=== PATIENT | female | born 1955 | race Caucasian/White ===

== ENCOUNTER 2017-01-30 23:47 | Inpatient (IN) | payer MEDICARE, OTHER ==
[~2017-01-30] VITALS: Ht 167.6 cm; Wt 114.0 kg
[2017-01-30 23:55] VITALS: BP 80/32
[2017-01-31] VITALS (9 sets, daily range): BP systolic 87–130; BP diastolic 26–77
[2017-01-31] MEDS ORDERED: NS 250 ML IV ONE (00:05)
--- NOTE | 2017-01-31 01:30 | Emergency Room Report ---
History of Present Illness General Chief Complaint: Altered Level of Consciousness Source: Family Member, EMS Present Illness HPI This is a 61-year-old female who is more bleeding obese. She has a history of renal failure on hemodialysis 4 days a week. She present with an altered mental status. Per her onset today. Progressively worse the last few hours. No nausea no vomiting. More sleepy. Per EMS she was very sedated and not answering questions appropriately. Oxygen was low they put her on a mask brought her here. Allergies: Coded Allergies: AZITHROMYCIN (Verified Allergy, Unknown, 01/30/17) POVIDONE-IODINE (Verified Allergy, Unknown, 01/30/17) SOAP (Verified Allergy, Unknown, 01/30/17) Patient History Past Medical History: see triage record, old chart reviewed, HTN, renal disease , dialysis Past Surgical History: other Pertinent Family History: none Social History: Denies: smoking Now: No Immunizations: other Reviewed Nursing Documentation: PMH: Agreed, PSxH: Agreed Nursing Documentation-PMH Past Medical History: No History, Except For Hx Hypertension: Yes Hx Diabetes: Yes Hx Dialysis: Yes - M-W-T-F Review of Systems Constitutional: Reports: malaise, weakness Eye: Denies: eye pain, blurred vision ENT: Denies: ear pain, nose congestion, throat swelling Respiratory: Denies: cough, shortness of breath Cardiovascular: Denies: chest pain, palpitations Gastrointestinal: Denies: abdominal pain, diarrhea, nausea, vomiting Musculoskeletal: Denies: back pain, joint pain Skin: Denies: rash Neurological: Denies: headache, numbness Endocrine: Denies: increased thirst, increased urine Hematologic/Lymphatic: Denies: easy bruising All Other Systems: negative except mentioned in HPI Physical Exam Vital Signs Date Time Temp Pulse Resp B/P (MAP) Pulse Ox O2 Delivery O2 Flow Rate FiO2 01/30/17 23:49 98.4 76 17 80/32 93 Room Air vitals with hypoxia and hypotension Sp02 EP Interpretation: abnormal General Appearance: moderate distress, lethargic, obese Head: normocephalic, atraumatic Eyes: bilateral eye PERRL, bilateral eye EOMI ENT: hearing grossly normal, normal pharynx Neck: full range of motion, supple, no meningismus Respiratory: chest non-tender, decreased breath sounds, rales Cardiovascular #1: regular rate, rhythm, no murmur Gastrointestinal: normal bowel sounds, non tender, no mass, no organomegaly, no bruit, non-distended Musculoskeletal: back normal, normal range of motion Neurologic: grossly normal Skin: warm/dry Procedures Critical Care Time Critical Care Time Critical care is mandated in this patient who presented with respiratory distress and altered mental status.. Patient require my urgent intervention to attenuate the risks of metabolic collapse which may lead to cardiovascular collapse and . Critical care time is 35 minutes excluding any reportable procedure. Critical care time included evaluation, multiple reevaluation, looking at old charts, interpreting laboratory and diagnostic data, discussing case with patient and family and consultants, and charting. Medical Decision Making Diagnostic Impression: Primary Impression: Acute exacerbation of CHF (congestive heart failure) Qualified Codes: I50.9 - Heart failure, unspecified Additional Impressions: Encephalopathy acute Morbid obesity with BMI of 40.0-44.9, adult ER Course She presents with altered mental status. No evidence of TIA or CVA. No evidence of infection. Chest x-ray showed CHF, mostly right sided. Patient is feeling better now. Mental status back to baseline. Patient was admitted for a week at [place]. She required daily dialysis. Since discharge she has been fluid restricted and not eating much. She has lost about 11 kg of her dry weight. She still take the same amount of insulin and glipizide. Also same amount of blood pressure medication. I suspect that her blood sugar being low throughout the day and blood pressure being low because she's on too much medication now. Her troponin is in the intermediate range. This may be secondary to her renal failure. She has no chest pain. Family does not want to be transferred to [place] at this moment in time. They prefer that she stays here. Because of that, will admit to the on-call physician. Lab Results Impression labs with abnormal renal function. EKG Diagnostic Results Rate: normal Rhythm: NSR ST Segments: no acute changes Rhythm Strip Diag. Results Rhythm Strip Time: 01:30 EP Interpretation: yes Rate: 80 Rhythm: NSR, no PVC's, no ectopy Chest X-Ray Diagnostic Results Chest X-Ray Diagnostic Results : Chest X-Ray Ordered: Yes # of Views/Limited/Complete: 1 View Indication: Shortness of Breath EP Interpretation: Yes Interpretation: no consolidation, no pneumothorax, other - Cardiomegaly, with right-sided vascular congesti Impression: Other - CHF Electronically Signed by: Electronically signed by Jarrod Mercado MD Last Vital Signs Date Time Temp Pulse Resp B/P (MAP) Pulse Ox O2 Delivery O2 Flow Rate FiO2 01/30/17 23:49 98.4 76 17 80/32 93 Room Air Status: improved Disposition: ADMITTED INPATIENT Condition: Serious JARROD MERCADO M.D. Jan 31, 2017 01:30
[2017-01-31 01:32] LABS: ABG PCO2 43.1 mmHg (35.0-45.0)
[2017-01-31 01:33] LABS: ABG ALLEN TEST POSITIVE; ABG BASE EXCESS -2.7
[2017-01-31 01:41] LABS: BASOPHILS % (AUTO) 0.6 % (0.0-2.0); EOSINOPHILS % (AUTO) 0.6 % (0.0-3.0); LYMPHOCYTES % (AUTO) 13.4 % (20.0-45.0); MEAN CORPUSCULAR HEMOGLOBIN 30.6 PG (27.0-31.0); MEAN CORPUSCULAR HGB CONC 32.2 G/DL (32.0-36.0); MEAN CORPUSCULAR VOLUME 95 FL (80-99); MEAN PLATELET VOLUME 9.2 FL (6.5-10.1); MONOCYTES % (AUTO) 9.9 % (1.0-10.0); NEUTROPHILS % (AUTO) 75.6 % (45.0-75.0); PLATELET COUNT 185 K/UL (150-450); RED BLOOD COUNT 3.25 M/UL (4.20-5.40); RED CELL DISTRIBUTION WIDTH 13.6 % (11.6-14.8); WHITE BLOOD COUNT 9.6 K/UL (4.8-10.8)
[2017-01-31 01:52] LABS: INR 1.1 (0.9-1.1); PROTHROMBIN TIME 11.4 SEC (9.30-11.50)
[2017-01-31 02:05] LABS: ALANINE AMINOTRANSFERASE 11 U/L (12-78); ANION GAP 16 (5-15); ASPARTATE AMINO TRANSFERASE 13 U/L (15-37); CALCIUM 10.1 MG/DL (8.5-10.1); CARBON DIOXIDE 24 MMOL/L (21-32); CHLORIDE 94 MMOL/L (98-107); CKMB 2.9 NG/ML (0.0-3.6); CREATININE 8.3 MG/DL (0.55-1.30); GLOMERULAR FILTRATION RATE 4.9 mL/min (>60); POTASSIUM 3.3 MMOL/L (3.5-5.1); SODIUM 134 MMOL/L (136-145); TOTAL PROTEIN 6.3 G/DL (6.4-8.2)
[2017-01-31] MEDS ORDERED: RENVELA0.8 GM ORAL (02:35)
[2017-01-31] MEDS ORDERED: FUROSEMIDE40 MG ORAL (02:35)
[2017-01-31] MEDS ORDERED: CLONIDINE HCL0.2 MG PO (02:35)
[2017-01-31] MEDS ORDERED: LORATADINE10 M1 PO (02:35)
[2017-01-31] MEDS ORDERED: ASPIRIN81 MG ORAL (02:35)
[2017-01-31] MEDS ORDERED: JANUVIA25 MG ORAL (02:35)
[2017-01-31] MEDS ORDERED: HYDRALAZINE HCL50 MG ORAL (02:35)
[2017-01-31] MEDS ORDERED: SIMVASTATIN80 MG ORAL (02:35)
[2017-01-31] MEDS ORDERED: MINOXIDIL2.5 MG PO (02:35)
[2017-01-31] MEDS ORDERED: GLIPIZIDE5 MG ORAL (02:35)
[2017-01-31] MEDS ORDERED: DIOVAN320 MG ORAL (02:35)
[2017-01-31] MEDS ORDERED: RENA-VITE TABL0.8 M1 PO (02:35)
[2017-01-31] MEDS ORDERED: PROCARDIA XL30 MG ORAL (02:35)
[2017-01-31] MEDS ORDERED: CARVEDILOL12.5 MG ORAL (02:35)
[2017-01-31] MEDS ORDERED: Miralax 17gm pkt ORAL PRN (07:15)
[2017-01-31] MEDS ORDERED: Mylanta II UD 30ml ORAL PRN (07:15)
[2017-01-31] MEDS ORDERED: Zolpidem 5mg tab ORAL PRN (07:15)
[2017-01-31] MEDS ORDERED: Albuterol/Ipratropium 3ml neb HHN PRN (07:15)
--- NOTE | 2017-01-31 08:35 | General Progress Note ---
Progress Note Progress Note patient seen and examined full note will be dictated dialysis was ordered IKER GARCIA Jan 31, 2017 08:34
[2017-01-31] MEDS ORDERED: sitaGLIPtin 25mg tab ORAL SCH (09:00)
--- NOTE | 2017-01-31 09:27 | Diagnostic Imaging Report ---
Indication: AMS Technique: Continuous helical CT scanning of the head was performed without intravenous contrast material. Axial and coronal 5 mm sections were generated. Radiation dose was minimized using automated exposure control Dose: Total Dose Length Product - DLP 1004 and [address] Dose Index - CTDIvol(s) 70.38 mGy. Comparison: Findings: The ventricular system is normal in size and configuration. There is no shift of midline structures. No abnormal extra-axial fluid collections are noted. There is no evidence of intracerebral bleeding. No other abnormal high or low density areas are noted within the brain. There is opacification of multiple left mastoid air cells. The sinuses are clear. The orbits are unremarkable. The calvarium is intact. Incidental finding of incomplete fusion of the posterior C1 arch-normal anatomic variant Impression: Normal CT scan of the head without contrast material. Incidental finding of left mastoid disease This agrees with the preliminary interpretation provided overnight by [facility]erad[facility] service. The CT scanner at [facility] is accredited by the [employer] and the scans are performed using protocols designed to limit radiation exposure to as low as reasonably achievable to attain images of sufficient resolution adequate for diagnostic evaluation.
[2017-01-31] MEDS: NovoLOG Insulin Flexpen SUBQ SCH ×4 (10:15→21:00)
--- NOTE | 2017-01-31 10:22 | Diagnostic Imaging Report ---
Indication: shortness of breath Technique: One view of the chest Comparison: none Findings: Body habitus limits evaluation. The heart is enlarged. There is mild interstitial congestion. The pleural spaces are probably clear Impression: Cardiomegaly. Mild pulmonary interstitial congestion
[2017-01-31] MEDS: Aspirin Baby 81mg ORAL SCH (16:43)
[2017-01-31] MEDS: sitaGLIPtin 25mg tab ORAL SCH (16:43)
--- NOTE | 2017-01-31 18:15 | History and Physical Report ---
DATE OF ADMISSION: 01/31/2017 TIME: 12 noon. ATTENDING PHYSICIAN: Woodrow Lord D.O. CONSULTANTS: 1. Mliy Muñoz M.D. 2. Guevara Gates M.D. 3. Kathi Resendiz M.D. CHIEF COMPLAINT: Shortness of breath, weakness, and lethargy. BRIEF HISTORY: The patient is a 61-year-old female who lives at home presents to [facility] with history of increased shortness of breath, lethargy, diagnosed with CHF exacerbation, altered mental status, ESRD, hypertension, and being admitted to telemetry for further care. Currently calm, O2 NC, slight shortness of breath in bed in the ER. No complaints. PAST MEDICAL HISTORY: CHF, ESRD, hypertension, diabetes, and asthma. PAST SURGICAL HISTORY: Tonsil, appendectomy, and shunt placement. MEDICATIONS: NovoLog, aspirin, Renvela, heparin, Januvia, morphine, MiraLAX, Zofran, zolpidem, Catapres, Lasix, and Duo-Neb. ALLERGIES: Erythromycin, povidone, azithromycin, and penicillin. SOCIAL HISTORY: No smoking. No alcohol. No intravenous drug abuse. FAMILY HISTORY: Noncontributory. REVIEW OF SYSTEMS: No chest pain. Slight shortness of breath. No nausea, vomiting, or diarrhea. PHYSICAL EXAMINATION: GENERAL: Calm in bed, slightly short of breath, oriented x3, in no acute distress. VITAL SIGNS: Temperature is 98 degrees, pulse 78, respirations 15, and blood pressure 103/39. CARDIOVASCULAR: No murmur. LUNGS: Poor air exchange. ABDOMEN: Bowel sounds are positive. Nontender and nondistended. EXTREMITIES: No cyanosis, clubbing, or edema. NEUROLOGIC: The patient moves all extremities, but slightly weak. LABORATORY AND DIAGNOSTIC DATA: Hemoglobin 9.9, otherwise CBC is normal. BMP shows sodium 134, potassium 3.3, chloride 94, BUN and creatinine 42/8.3, and glucose 173. INR is 1.1 and PTT is 32. ASSESSMENT: 1. Congestive heart failure exacerbation. 2. Altered mental status. 3. End-stage renal disease. 4. Hypertension. 5. Anemia. 6. Diabetes. 7. Asthma. PLAN: 1. Continue pre-medications. 2. O2 and pulmonary treatment. 3. OT/PT. 4. Dietary evaluation. 5. CBC and BMP in the morning. 6. Dialysis. 7. Blood pressure and blood sugar control. 8. Dr. Muñoz, Dr. Gates, and Dr. Resendiz to consult. Woodrow Lord D.O. DR: KULWANT JOB#: [id number] CC:
--- NOTE | 2017-01-31 21:15 | Consultation ---
History of Present Illness General Date patient seen: Jan 31, 2017 Chief Complaint: Altered Level of Consciousness Referring physician: Dr. Lord Reason for Consultation: inpatient management Present Illness HPI 61 year old female with hx of ESRF, DM, HTN, on HD, on multiple anti BP meds was taken by paramedics to [facility] for acute encephalopathy and low BP. Pt was found to have pulmonary edema and being admitted to teli/reggie for further evaluation. Allergies: Coded Allergies: AZITHROMYCIN (Verified Allergy, Unknown, 01/30/17) POVIDONE-IODINE (Verified Allergy, Unknown, 01/30/17) SOAP (Verified Allergy, Unknown, 01/30/17) Medication History Scheduled Aspirin* (Aspirin*), 81 MG ORAL DAILY, (Reported) Carvedilol* (Carvedilol*), 12.5 MG ORAL EVERY 12 HOURS, (Reported) Furosemide* (Lasix*), 40 MG ORAL TWICE A DAY, (Reported) Glipizide* (Glipizide*), 10 MG ORAL BIDAC, (Reported) Hydralazine Hcl* (Hydralazine Hcl*), 50 MG ORAL EVERY 8 HOURS, (Reported) Minoxidil* (Loniten*), 2.5 MG PO DAILY, (Reported) Nifedipine Xl* (Procardia Xl*), 60 MG ORAL BID, (Reported) Sevelamer Carbonate* (Renvela*), 800 MG ORAL THREE TIMES A DAY, (Reported) Simvastatin (Zocor), 80 MG ORAL BEDTIME, (Reported) Sitagliptin* (Januvia*), 100 MG ORAL DAILY, (Reported) Valsartan (Diovan), 320 MG ORAL DAILY, (Reported) Miscellaneous Medications Clonidine Hcl (Clonidine Hcl), 0.2 MG PO, (Reported) Folic Acid/Vitamin B Comp W-C (Jonelle-Stefanie Tablet), 0.8 MG PO, (Reported) Loratadine (Loratadine), 10 MG PO, (Reported) Patient History Healthcare decision maker Resuscitation status Full Code Advanced Directive on File No Past Medical/Surgical History Past Medical/Surgical History: (1) ESRD (end stage renal disease) (2) HTN (hypertension) (3) Diabetes mellitus Review of Systems All Other Systems: negative except mentioned in HPI Physical Exam General Appearance: WD/WN Lines, tubes and drains: peripheral, central line HEENT: normocephalic Neck: non-tender, normal alignment, limited range of motion Respiratory/Chest: chest wall non-tender, lungs clear, normal breath sounds Cardiovascular/Chest: normal peripheral pulses, normal rate Abdomen: normal bowel sounds Genitourinary/Rectal: normal genital exam Last 24 Hour Vital Signs Date Time Temp Pulse Resp B/P (MAP) Pulse Ox O2 Delivery O2 Flow Rate FiO2 01/31/17 19:37 98.4 86 18 116/43 93 Room Air 2.0 01/31/17 14:30 86 18 116/43 93 Room Air 01/31/17 12:30 87 15 107/43 97 Room Air 01/31/17 10:30 86 17 111/41 94 Room Air 01/31/17 07:30 78 15 103/39 96 Room Air 01/31/17 06:30 74 12 99/30 100 Nasal Cannula 2.0 01/31/17 05:00 82 16 96/77 96 Nasal Cannula 2.0 01/31/17 03:00 81 15 87/39 98 Room Air 01/31/17 01:30 84 16 90/26 96 Room Air 01/30/17 23:55 98.4 82 17 80/32 93 Room Air 01/30/17 23:49 98.4 76 17 80/32 93 Room Air Intake and Output 01/31/17 02/01/17 19:00 07:00 Intake Total 120 ml Balance 120 ml Intake Oral 120 ml Laboratory Tests Test 01/31/17 01:20 01/31/17 01:30 White Blood Count 9.6 K/UL (4.8-10.8) Red Blood Count 3.25 M/UL (4.20-5.40) L Hemoglobin 9.9 G/DL (12.0-16.0) L Hematocrit 30.8 % (37.0-47.0) L Mean Corpuscular Volume 95 FL (80-99) Mean Corpuscular Hemoglobin 30.6 PG (27.0-31.0) Mean Corpuscular Hemoglobin Concent 32.2 G/DL (32.0-36.0) Red Cell Distribution Width 13.6 % (11.6-14.8) Platelet Count 185 K/UL (150-450) Mean Platelet Volume 9.2 FL (6.5-10.1) Neutrophils (%) (Auto) 75.6 % (45.0-75.0) H Lymphocytes (%) (Auto) 13.4 % (20.0-45.0) L Monocytes (%) (Auto) 9.9 % (1.0-10.0) Eosinophils (%) (Auto) 0.6 % (0.0-3.0) Basophils (%) (Auto) 0.6 % (0.0-2.0) Prothrombin Time 11.4 SEC (9.30-11.50) Prothromb Time International Ratio 1.1 (0.9-1.1) Activated Partial Thromboplast Time 32 SEC (23-33) Sodium Level 134 MMOL/L (136-145) L Potassium Level 3.3 MMOL/L (3.5-5.1) L Chloride Level 94 MMOL/L (98-107) L Carbon Dioxide Level 24 MMOL/L (21-32) Anion Gap 16 (5-15) H Blood Urea Nitrogen 42 mg/dL (7-18) H Creatinine 8.3 MG/DL (0.55-1.30) H Estimat Glomerular Filtration Rate 4.9 mL/min (>60) Glucose Level 173 MG/DL (74-106) H Calcium Level 10.1 MG/DL (8.5-10.1) Total Bilirubin 0.3 MG/DL (0.2-1.0) Aspartate Amino Transf (AST/SGOT) 13 U/L (15-37) L Alanine Aminotransferase (ALT/SGPT) 11 U/L (12-78) L Alkaline Phosphatase 204 U/L (46-116) H Total Creatine Kinase 111 U/L (26-308) Creatine Kinase MB 2.9 NG/ML (0.0-3.6) Creatine Kinase MB Relative Index 2.6 Troponin I 0.070 ng/mL (0.000-0.056) Total Protein 6.3 G/DL (6.4-8.2) L Albumin 3.2 G/DL (3.4-5.0) L Globulin 3.1 g/dL Albumin/Globulin Ratio 1.0 (1.0-2.7) Arterial Blood pH 7.343 (7.350-7.450) Arterial Blood Partial Pressure CO2 43.1 mmHg (35.0-45.0) Arterial Blood Partial Pressure O2 70.8 mmHg (75.0-100.0) L Arterial Blood HCO3 22.9 mmol/L (22.0-26.0) Arterial Blood Oxygen Saturation 92.5 % (92.0-98.0) Arterial Blood Base Excess -2.7 Jey Test Positive Height (Feet): 5 Height (Inches): 6.00 Weight (Pounds): 260 Medications Current Medications Medications (Trade) Dose Ordered Sig/Renée Route PRN Reason Start Time Stop Time Status Last Admin Dose Admin Acetaminophen (Tylenol) 650 mg Q4H PRN ORAL fever 01/31/17 07:15 03/02/17 07:14 Al Hydroxide/Mg Hydroxide (Mylanta II) 30 ml Q6H PRN ORAL dyspepsia 01/31/17 07:15 03/02/17 07:14 Albuterol/ Ipratropium (DuoNeb 0.5-3(2.5)mg/3ml) 3 ml Q6H PRN HHN dyspnea 01/31/17 07:15 02/05/17 07:14 Aspirin (ASA) 81 mg DAILY ORAL 01/31/17 15:00 03/02/17 14:59 01/31/17 16:43 Clonidine HCl (Catapres) 0.1 mg Q4H PRN ORAL For High Blood Pressure 01/31/17 07:15 03/02/17 07:14 Dextrose (Dextrose 50%) STAT PRN IV Hypoglycemia 01/31/17 07:15 03/02/17 07:14 Furosemide (Lasix) 100 mg Q8H PRN IV dyspnea 01/31/17 07:15 03/02/17 07:14 Heparin Sodium (Porcine) (Heparin 5000 units/ml) 5,000 units EVERY 12 HOURS SUBQ 01/31/17 21:00 03/02/17 20:59 Insulin Aspart (NovoLOG) BEFORE MEALS AND HS SUBQ 01/31/17 09:40 03/02/17 09:39 01/31/17 10:15 Morphine Sulfate (Morphine Sulfate) 1 mg Q4H PRN IVP For Pain 01/31/17 07:15 02/07/17 07:14 Ondansetron HCl (Zofran) 4 mg Q6H PRN IVP Nausea & Vomiting 01/31/17 07:15 03/02/17 07:14 Polyethylene Glycol (Miralax) 17 gm HSPRN PRN ORAL Constipation 01/31/17 07:15 03/02/17 07:14 Sevelamer Carbonate (Renvela) 800 mg THREE TIMES A DAY ORAL 01/31/17 15:00 03/02/17 14:59 01/31/17 16:43 Sitagliptin Phosphate (Januvia) 25 mg DAILY ORAL 01/31/17 15:00 03/02/17 14:59 01/31/17 16:43 Zolpidem Tartrate (Ambien) 5 mg HSPRN PRN ORAL Insomnia 01/31/17 07:15 02/07/17 07:14 Assessment/Plan Problem List: (1) Acute exacerbation of CHF (congestive heart failure) ICD Codes: I50.9 - Heart failure, unspecified SNOMED: 82450945, 456939822 Qualifiers: Qualified Codes: I50.9 - Heart failure, unspecified (2) Encephalopathy acute ICD Codes: G93.40 - Encephalopathy, unspecified; Z68.41 - Body mass index (BMI ) 40.0-44.9, adult SNOMED: 5371883, 454889911 (3) Diabetes mellitus ICD Codes: E11.9 - Type 2 diabetes mellitus without complications SNOMED: 60823136 (4) ESRD (end stage renal disease) ICD Codes: N18.6 - End stage renal disease SNOMED: 54379886 (5) Overuse of medication ICD Codes: Z91.14 - Patient's other noncompliance with medication regimen SNOMED: 890906146 (6) Morbid obesity with BMI of 40.0-44.9, adult ICD Codes: E66.01 - Morbid (severe) obesity due to excess calories; Z68.41 - Body mass index (BMI) 40.0-44.9, adult SNOMED: 126756826, 033109733 (7) HTN (hypertension) ICD Codes: I10 - Essential (primary) hypertension SNOMED: 66867833 Assessment/Plan HD repeat cxr monitor bp adjust bp meds sliding scale MARINA PARRISH Jan 31, 2017 21:15
--- NOTE | 2017-01-31 22:15 | Consultation ---
DATE OF CONSULTATION: 01/31/2017 NEPHROLOGY CONSULTATION CONSULTING PHYSICIAN: Kathi Resendiz M.D. ATTENDING PHYSICIAN: Woodrow Lord D.O. REFERRING PHYSICIAN: Woodrow Lord D.O. REASON FOR CONSULTATION: End-stage renal disease, need for hemodialysis. HISTORY OF PRESENT ILLNESS: The patient is an unfortunate 61-year-old female with past medical history significant for history of morbid obesity, hypertension, diabetes, end-stage renal disease, on dialysis Tuesday, Tuesday, Tuesday. Last dialysis was on Tuesday. She was brought into emergency room by her for evaluation of altered mental status. Upon arrival, the patient was found to be altered, but this morning when I spoke to her in the ER, the patient was alert and oriented x4. She complained of mild shortness of breath. Denies fever, chills, night sweats. The patient denies having any current chest pain and waiting for ER to be getting admitted. ALLERGIES: She is allergic to azithromycin. She is also allergic to iodine and soap. PAST MEDICAL HISTORY: Includin. End-stage renal disease. 2. Anemia of chronic kidney disease. 3. Renal osteodystrophy. 4. Hypertension. 5. Diabetes. 6. Morbid obesity. 7. History of AV fistula placement on the left upper extremity. 8. History of AV fistula placement on the right upper extremity. SOCIAL HISTORY: Lives at home with her . There is no history of current tobacco, alcohol, or drug use. REVIEW OF SYSTEMS: GENERAL: She complained of generalized weakness. Denied any fever, chills, or night sweats. HEAD AND NECK: Denies any dysphagia, odynophagia, blurry vision, headache, or neck stiffness. PULMONARY: Mild shortness of breath. No cough or sputum. CARDIOVASCULAR: Denies any chest pain or palpitation. GASTROINTESTINAL: Denied any nausea, vomiting, diarrhea, hematemesis, or hematochezia. GENITOURINARY: Denied any dysuria, frequency, or hematuria. PHYSICAL EXAMINATION: VITAL SIGNS: The patient has temperature of 98, pulse of 76, respiratory rate of 18, and blood pressure of 80/32. HEAD AND NECK: No JVP. No LAD. Extraocular movements intact. Pupils are reactive to light and accommodation. LUNGS: Decreased breathing sounds. CARDIAC: Regular rate and rhythm. S1, S2. No murmur. No rub. ABDOMEN: Obese, nontender, and nondistended. EXTREMITIES: She has 1+ edema. No clubbing. No cyanosis. NEUROLOGIC: Cranial nerves II though XII within normal limits. Upper and lower extremities are grossly intact. LABORATORY AND DIAGNOSTIC DATA: The patient has WBC count of 9.6, hemoglobin of 9.1, hematocrit 30.8, and platelet count of 185,000. Chemistry reveals sodium 134, potassium 3.3, chloride 94, BUN of 42, creatinine of 8.3, glucose of 173, and calcium of 10.1. AST of 13, ALT of 11, and alkaline phosphatase of 204. Troponin 0.07. Total protein 6.3, albumin 3.2. ASSESSMENT: 1. End-stage coronary disease. 2. Anemia of chronic kidney disease. 3. Hypokalemia. 4. Hypotension. 5. Altered mental status. PLAN: Plan is for the patient to receive dialysis today. The patient needs to be pancultured being with low blood pressure. This lower blood pressure for the patient is unusual. Check the iron panel for anemia of chronic disease. Check calcium, phosphorus, PTH for evaluation of renal osteodystrophy. Monitoring electrolytes closely. At the end, I would like to thank Dr. Woodrow Lord for allowing me to participate in the care of this patient. Kathi Resendiz M.D. DR: Melanie JOB#: [id number] CC:
[2017-01-31] MEDS: Heparin 5000 units/ml inj SUBQ SCH (22:31)
[2017-01-31] MEDS: Morphine Sulfate 2mg/ml Inj IVP PRN (23:21)
[2017-02-01] VITALS (7 sets, daily range): BP systolic 89–146; BP diastolic 34–73
[2017-02-01] MEDS: NovoLOG Insulin Flexpen SUBQ SCH ×4 (06:30→21:00)
[2017-02-01] MEDS: Morphine Sulfate 2mg/ml Inj IVP PRN (06:36)
[2017-02-01] MEDS ORDERED: Morphine Sulfate 4mg/ml Inj IVP PRN (08:00)
--- NOTE | 2017-02-01 08:14 | Cardiology Progress Note ---
Assessment/Plan Assessment/Plan The patient is seen and examined, full consult note will be dictated. Objective Last 24 Hour Vital Signs Date Time Temp Pulse Resp B/P (MAP) Pulse Ox O2 Delivery O2 Flow Rate FiO2 02/01/17 04:00 87 02/01/17 04:00 97.5 96 20 116/51 99 Nasal Cannula 3.0 96 02/01/17 00:05 95/34 02/01/17 00:00 97.9 85 20 89/36 Nasal Cannula 3.0 02/01/17 00:00 86 01/31/17 20:54 88 01/31/17 20:00 97.9 89 20 130/50 97 Nasal Cannula 3.0 01/31/17 19:37 98.4 86 18 116/43 93 Room Air 2.0 01/31/17 14:30 86 18 116/43 93 Room Air 01/31/17 12:30 87 15 107/43 97 Room Air 01/31/17 10:30 86 17 111/41 94 Room Air Laboratory Tests Test 02/01/17 07:35 White Blood Count Pending Red Blood Count Pending Hemoglobin Pending Hematocrit Pending Mean Corpuscular Volume Pending Mean Corpuscular Hemoglobin Pending Mean Corpuscular Hemoglobin Concent Pending Red Cell Distribution Width Pending Platelet Count Pending Mean Platelet Volume Pending Neutrophils (%) (Auto) Pending Lymphocytes (%) (Auto) Pending Monocytes (%) (Auto) Pending Eosinophils (%) (Auto) Pending Basophils (%) (Auto) Pending Erythrocyte Sedimentation Rate Pending Reticulocyte Count Pending Sodium Level Pending Potassium Level Pending Chloride Level Pending Carbon Dioxide Level Pending Blood Urea Nitrogen Pending Creatinine Pending Estimat Glomerular Filtration Rate Pending Glucose Level Pending Hemoglobin A1c Pending Calcium Level Pending Iron Level Pending Unsaturated Iron Binding Pending Total Bilirubin Pending Aspartate Amino Transf (AST/SGOT) Pending Alanine Aminotransferase (ALT/SGPT) Pending Alkaline Phosphatase Pending Lactate Dehydrogenase Pending Pro-B-Type Natriuretic Peptide Pending Total Protein Pending Albumin Pending Globulin Pending Triglycerides Level Pending Cholesterol Level Pending LDL Cholesterol Pending HDL Cholesterol Pending Cholesterol/HDL Ratio Pending Vitamin B12 Level Pending Folate Pending Thyroid Stimulating Hormone (TSH) Pending JOSE ALBERTO WONG Feb 01, 2017 08:14
[2017-02-01 08:19] LABS: BASOPHILS % (AUTO) 0.6 % (0.0-2.0); EOSINOPHILS % (AUTO) 0.5 % (0.0-3.0); LYMPHOCYTES % (AUTO) 12.6 % (20.0-45.0); MEAN CORPUSCULAR HEMOGLOBIN 31.7 PG (27.0-31.0); MEAN CORPUSCULAR HGB CONC 32.4 G/DL (32.0-36.0); MEAN CORPUSCULAR VOLUME 98 FL (80-99); MEAN PLATELET VOLUME 9.1 FL (6.5-10.1); MONOCYTES % (AUTO) 8.4 % (1.0-10.0); NEUTROPHILS % (AUTO) 77.8 % (45.0-75.0); PLATELET COUNT 221 K/UL (150-450); RED BLOOD COUNT 3.41 M/UL (4.20-5.40); RED CELL DISTRIBUTION WIDTH 13.9 % (11.6-14.8); WHITE BLOOD COUNT 10.6 K/UL (4.8-10.8)
--- NOTE | 2017-02-01 08:41 | Nephrology Progress Note ---
Assessment/Plan Assessment 1. End-stage coronary disease. 2. Anemia of chronic kidney disease. 3. Hypokalemia. 4. Hypotension. 5. Altered mental status. Plan plan hold bp meds dialysis today check phos,pth continue epogen check iron panel Subjective Constitutional: Reports: no symptoms, weakness HEENT: Reports: no symptoms Genitourinary: Reports: no symptoms Neurologic/Psychiatric: Reports: no symptoms Subjective alert and awake denies any CP or SOB awaiting for hemodialysis Objective Objective Last 24 Hour Vital Signs Date Time Temp Pulse Resp B/P (MAP) Pulse Ox O2 Delivery O2 Flow Rate FiO2 02/01/17 08:14 96.8 95 18 125/52 100 Nasal Cannula 3.0 02/01/17 04:00 87 02/01/17 04:00 97.5 96 20 116/51 99 Nasal Cannula 3.0 96 02/01/17 00:05 95/34 02/01/17 00:00 97.9 85 20 89/36 Nasal Cannula 3.0 02/01/17 00:00 86 01/31/17 20:54 88 01/31/17 20:00 97.9 89 20 130/50 97 Nasal Cannula 3.0 01/31/17 19:37 98.4 86 18 116/43 93 Room Air 2.0 01/31/17 14:30 86 18 116/43 93 Room Air 01/31/17 12:30 87 15 107/43 97 Room Air 01/31/17 10:30 86 17 111/41 94 Room Air Laboratory Tests 02/01/17 07:35: White Blood Count 10.6, Red Blood Count 3.41L, Hemoglobin 10.8L, Hematocrit 33.3L, Mean Corpuscular Volume 98, Mean Corpuscular Hemoglobin 31.7H, Mean Corpuscular Hemoglobin Concent 32.4, Red Cell Distribution Width 13.9, Platelet Count 221, Mean Platelet Volume 9.1, Neutrophils (%) (Auto) 77.8H, Lymphocytes ( %) (Auto) 12.6L, Monocytes (%) (Auto) 8.4, Eosinophils (%) (Auto) 0.5, Basophils (%) (Auto) 0.6, Neutrophils % (Manual) [Pending], Lymphocytes % ( Manual) [Pending], Platelet Estimate [Pending], Platelet Morphology [Pending], Erythrocyte Sedimentation Rate [Pending], Reticulocyte Count [Pending], Sodium Level [Pending], Potassium Level [Pending], Chloride Level [Pending], Carbon Dioxide Level [Pending], Blood Urea Nitrogen [Pending], Creatinine [Pending], Estimat Glomerular Filtration Rate [Pending], Glucose Level [Pending], Hemoglobin A1c [Pending], Calcium Level [Pending], Iron Level [Pending], Unsaturated Iron Binding [Pending], Total Bilirubin [Pending], Aspartate Amino Transf (AST/SGOT) [Pending], Alanine Aminotransferase (ALT/SGPT) [Pending], Alkaline Phosphatase [Pending], Lactate Dehydrogenase [Pending], Pro-B-Type Natriuretic Peptide [Pending], Total Protein [Pending], Albumin [Pending], Globulin [Pending], Triglycerides Level [Pending], Cholesterol Level [Pending], LDL Cholesterol [Pending], HDL Cholesterol [Pending], Cholesterol/HDL Ratio [ Pending], Vitamin B12 Level [Pending], Folate [Pending], Thyroid Stimulating Hormone (TSH) [Pending] Height (Feet): 5 Height (Inches): 6.00 Weight (Pounds): 260 Objective HEAD AND NECK: No JVP. No LAD. Extraocular movements intact. Pupils are reactive to light and accommodation. LUNGS: Decreased breathing sounds. CARDIAC: Regular rate and rhythm. S1, S2. No murmur. No rub. ABDOMEN: Obese, nontender, and nondistended. EXTREMITIES: She has 1+ edema. No clubbing. No cyanosis. NEUROLOGIC: Cranial nerves II though XII within normal limits. Upper and lower extremities are grossly intact. IKER GARCIA Feb 01, 2017 08:41
[2017-02-01 09:03] LABS: ALANINE AMINOTRANSFERASE 14 U/L (12-78); ALBUMIN/GLOBULIN RATIO 1.1 (1.0-2.7); ANION GAP 23 mmol/L (5-15); ASPARTATE AMINO TRANSFERASE 13 U/L (15-37); CALCIUM 10.7 MG/DL (8.5-10.1); CARBON DIOXIDE 20 MMOL/L (21-32); CHLORIDE 93 MMOL/L (98-107); CHOLESTEROL 107 MG/DL (< 200); CHOLESTEROL/HDL RATIO 2.6 (3.3-4.4); CREATININE 10.7 MG/DL (0.55-1.30); GLOMERULAR FILTRATION RATE 3.6 mL/min (>60); POTASSIUM 4.5 MMOL/L (3.5-5.1); SODIUM 136 MMOL/L (136-145); THYROID STIMULATING HORMONE 1.253 uiU/mL (0.360-3.740)
[2017-02-01 09:17] LABS: INR 1.1 (0.9-1.1); PROTHROMBIN TIME 11.2 SEC (9.30-11.50)
[2017-02-01 09:38] LABS: ERYTHROCYTE SEDIMENTATION RATE 54 MM/HR (0-30)
[2017-02-01] MEDS: Aspirin Baby 81mg ORAL SCH (09:47)
[2017-02-01] MEDS: sitaGLIPtin 25mg tab ORAL SCH (09:47)
[2017-02-01 09:49] LABS: LACTATE DEHYDROGENASE 145 U/L (135-225)
[2017-02-01] MEDS: Heparin 5000 units/ml inj SUBQ SCH ×2 (09:52→20:28)
[2017-02-01 10:27] LABS: FOLIC ACID 19.9 NG/ML (3.1-17.5); IRON 43 ug/dL (50-175)
[2017-02-01 10:30] LABS: RETICULOCYTE COUNT 1.2 % (0.0-2.0)
[2017-02-01 11:17] LABS: TOTAL IRON BINDING CAPACITY 366 ug/dL (250-450)
[2017-02-01 11:22] LABS: BAND NEUTROPHILS % (MANUAL) 0 % (0-8); BASOPHILS % (MANUAL) 0 % (0-2); EOSINOPHILS % (MANUAL) 0 % (0-3); LYMPHOCYTES % (MANUAL) 11 % (20-45); NEUTROPHILS % (MANUAL) 80 % (45-75); PLATELET ESTIMATE ADEQUATE; PLATELET MORPHOLOGY NORMAL; TOTAL CELLS COUNTED 100
--- NOTE | 2017-02-01 12:00 | Pulmonology Progress Note ---
Assessment/Plan Problems: (1) Acute exacerbation of CHF (congestive heart failure) (2) Encephalopathy acute (3) Diabetes mellitus (4) ESRD (end stage renal disease) (5) Overuse of medication (6) Morbid obesity with BMI of 40.0-44.9, adult (7) HTN (hypertension) Assessment/Plan doing better repeat cxr check echo hold bp meds sliding scale Subjective ROS Limited/Unobtainable: No Interval Events: doing better, getting dialyzed Constitutional: Reports: no symptoms Allergies: Coded Allergies: AZITHROMYCIN (Verified Allergy, Unknown, 01/30/17) POVIDONE-IODINE (Verified Allergy, Unknown, 01/30/17) SOAP (Verified Allergy, Unknown, 01/30/17) Objective Last 24 Hour Vital Signs Date Time Temp Pulse Resp B/P (MAP) Pulse Ox O2 Delivery O2 Flow Rate FiO2 02/01/17 08:14 96.8 95 18 125/52 100 Nasal Cannula 3.0 02/01/17 04:00 87 02/01/17 04:00 97.5 96 20 116/51 99 Nasal Cannula 3.0 96 02/01/17 00:05 95/34 02/01/17 00:00 97.9 85 20 89/36 Nasal Cannula 3.0 02/01/17 00:00 86 01/31/17 20:54 88 01/31/17 20:00 97.9 89 20 130/50 97 Nasal Cannula 3.0 01/31/17 19:37 98.4 86 18 116/43 93 Room Air 2.0 01/31/17 14:30 86 18 116/43 93 Room Air 01/31/17 12:30 87 15 107/43 97 Room Air Intake and Output 02/01/17 02/02/17 19:00 07:00 Intake Total 120 ml Balance 120 ml Intake Oral 120 ml General Appearance: WD/WN HEENT: normocephalic, anicteric Respiratory/Chest: chest wall non-tender, lungs clear Cardiovascular: normal peripheral pulses, normal rate Abdomen: normal bowel sounds, soft, non tender Extremities: no cyanosis Skin: no rash Neurologic/Psychiatric: supervisor dials II-XII grossly normal Lymphatic: no neck adenopathy Laboratory Tests 02/01/17 07:23: Phosphorus Level 4.6 02/01/17 07:35: White Blood Count 10.6, Red Blood Count 3.41L, Hemoglobin 10.8L, Hematocrit 33.3L, Mean Corpuscular Volume 98, Mean Corpuscular Hemoglobin 31.7H, Mean Corpuscular Hemoglobin Concent 32.4, Red Cell Distribution Width 13.9, Platelet Count 221, Mean Platelet Volume 9.1, Neutrophils (%) (Auto) 77.8H, Lymphocytes ( %) (Auto) 12.6L, Monocytes (%) (Auto) 8.4, Eosinophils (%) (Auto) 0.5, Basophils (%) (Auto) 0.6, Differential Total Cells Counted 100, Neutrophils % ( Manual) 80H, Lymphocytes % (Manual) 11L, Monocytes % (Manual) 9, Eosinophils % ( Manual) 0, Basophils % (Manual) 0, Band Neutrophils 0, Platelet Estimate Adequate, Platelet Morphology Normal, Red Blood Cell Morphology Normal, Erythrocyte Sedimentation Rate 54H, Reticulocyte Count 1.2, Sodium Level 136, Potassium Level 4.5, Chloride Level 93L, Carbon Dioxide Level 20L, Anion Gap 23H , Blood Urea Nitrogen 59H, Creatinine 10.7H, Estimat Glomerular Filtration Rate 3.6, Glucose Level 167H, Hemoglobin A1c [Pending], Calcium Level 10.7H, Iron Level 43L, Total Iron Binding Capacity 366, Percent Iron Saturation 12L, Unsaturated Iron Binding 323, Total Bilirubin 0.4, Aspartate Amino Transf (AST/ SGOT) 13L, Alanine Aminotransferase (ALT/SGPT) 14, Alkaline Phosphatase 254H, Lactate Dehydrogenase 145, Pro-B-Type Natriuretic Peptide [Pending], Total Protein 7.0, Albumin 3.7, Globulin 3.3, Albumin/Globulin Ratio 1.1, Triglycerides Level 228H, Cholesterol Level 107, LDL Cholesterol 33, HDL Cholesterol 41, Cholesterol/HDL Ratio 2.6L, Vitamin B12 Level 473, Folate 19.9H , Thyroid Stimulating Hormone (TSH) 1.253 02/01/17 08:30: Prothrombin Time 11.2, Prothromb Time International Ratio 1.1, Activated Partial Thromboplast Time 36H Current Medications Medications (Trade) Dose Ordered Sig/Renée Route PRN Reason Start Time Stop Time Status Last Admin Dose Admin Acetaminophen (Tylenol) 650 mg Q4H PRN ORAL fever 01/31/17 07:15 03/02/17 07:14 Al Hydroxide/Mg Hydroxide (Mylanta II) 30 ml Q6H PRN ORAL dyspepsia 01/31/17 07:15 03/02/17 07:14 Albuterol/ Ipratropium (DuoNeb 0.5-3(2.5)mg/3ml) 3 ml Q6H PRN HHN dyspnea 01/31/17 07:15 02/05/17 07:14 Aspirin (ASA) 81 mg DAILY ORAL 01/31/17 15:00 03/02/17 14:59 02/01/17 09:47 Clonidine HCl (Catapres) 0.1 mg Q4H PRN ORAL For High Blood Pressure 01/31/17 07:15 03/02/17 07:14 Dextrose (Dextrose 50%) STAT PRN IV Hypoglycemia 01/31/17 07:15 03/02/17 07:14 Furosemide (Lasix) 100 mg Q8H PRN IV dyspnea 01/31/17 07:15 03/02/17 07:14 Heparin Sodium (Porcine) (Heparin 5000 units/ml) 5,000 units EVERY 12 HOURS SUBQ 01/31/17 21:00 03/02/17 20:59 02/01/17 09:52 Insulin Aspart (NovoLOG) BEFORE MEALS AND HS SUBQ 01/31/17 09:40 03/02/17 09:39 01/31/17 10:15 Morphine Sulfate (Morphine Sulfate) 4 mg Q4H PRN IVP PAIN 4-10 02/01/17 08:00 02/08/17 07:59 Ondansetron HCl (Zofran) 4 mg Q6H PRN IVP Nausea & Vomiting 01/31/17 07:15 03/02/17 07:14 01/31/17 23:21 Polyethylene Glycol (Miralax) 17 gm HSPRN PRN ORAL Constipation 01/31/17 07:15 03/02/17 07:14 Sevelamer Carbonate (Renvela) 800 mg THREE TIMES A DAY ORAL 01/31/17 15:00 03/02/17 14:59 02/01/17 09:47 Sitagliptin Phosphate (Januvia) 25 mg DAILY ORAL 01/31/17 15:00 03/02/17 14:59 02/01/17 09:47 Zolpidem Tartrate (Ambien) 5 mg HSPRN PRN ORAL Insomnia 01/31/17 07:15 02/07/17 07:14 MARINA PARRISH Feb 01, 2017 12:00
[2017-02-01 12:31] LABS: PATH BLOOD SMEAR/OMC SENT TO PATHOLOGIST
--- NOTE | 2017-02-01 13:10 | Diagnostic Imaging Report ---
Indication: Dyspnea Comparison: 01/31/17 A single view chest radiograph was obtained. Findings: A study prominent pulmonary vascularity noted with cardiac enlargement. Interstitial edema seen yesterday has improved. Impression: No overt CHF at this time. Improvement since yesterday.
--- NOTE | 2017-02-01 13:23 | General Progress Note ---
Assessment/Plan Problem List: (1) Acute exacerbation of CHF (congestive heart failure) ICD Codes: I50.9 - Heart failure, unspecified SNOMED: 14118919, 838328441 Qualifiers: Qualified Codes: I50.9 - Heart failure, unspecified (2) Morbid obesity with BMI of 40.0-44.9, adult ICD Codes: E66.01 - Morbid (severe) obesity due to excess calories; Z68.41 - Body mass index (BMI) 40.0-44.9, adult SNOMED: 457378940, 004681961 (3) Diabetes mellitus ICD Codes: E11.9 - Type 2 diabetes mellitus without complications SNOMED: 15514346 (4) ESRD (end stage renal disease) ICD Codes: N18.6 - End stage renal disease SNOMED: 78804779 (5) HTN (hypertension) ICD Codes: I10 - Essential (primary) hypertension SNOMED: 85036927 (6) Encephalopathy acute ICD Codes: G93.40 - Encephalopathy, unspecified; Z68.41 - Body mass index (BMI ) 40.0-44.9, adult SNOMED: 1660433, 469507975 Status: stable, progressing, tolerating diet Assessment/Plan ot pt diet dialysis o2 pulm tx cbc bmp am Subjective Constitutional: Reports: weakness Allergies: Coded Allergies: AZITHROMYCIN (Verified Allergy, Unknown, 01/30/17) POVIDONE-IODINE (Verified Allergy, Unknown, 01/30/17) SOAP (Verified Allergy, Unknown, 01/30/17) All Systems: reviewed and negative except above Subjective o2nc dialysis Objective Last 24 Hour Vital Signs Date Time Temp Pulse Resp B/P (MAP) Pulse Ox O2 Delivery O2 Flow Rate FiO2 02/01/17 11:51 98.1 85 18 127/73 02/01/17 10:40 Nasal Cannula 2.0 02/01/17 08:14 96.8 95 18 125/52 100 Nasal Cannula 3.0 02/01/17 04:00 87 02/01/17 04:00 97.5 96 20 116/51 99 Nasal Cannula 3.0 96 02/01/17 00:05 95/34 02/01/17 00:00 97.9 85 20 89/36 Nasal Cannula 3.0 02/01/17 00:00 86 01/31/17 20:54 88 01/31/17 20:00 97.9 89 20 130/50 97 Nasal Cannula 3.0 01/31/17 19:37 98.4 86 18 116/43 93 Room Air 2.0 01/31/17 14:30 86 18 116/43 93 Room Air Intake and Output 02/01/17 02/02/17 19:00 07:00 Intake Total 120 ml Balance 120 ml Intake Oral 120 ml Laboratory Tests 02/01/17 07:23: Phosphorus Level 4.6 02/01/17 07:35: White Blood Count 10.6, Red Blood Count 3.41L, Hemoglobin 10.8L, Hematocrit 33.3L, Mean Corpuscular Volume 98, Mean Corpuscular Hemoglobin 31.7H, Mean Corpuscular Hemoglobin Concent 32.4, Red Cell Distribution Width 13.9, Platelet Count 221, Mean Platelet Volume 9.1, Neutrophils (%) (Auto) 77.8H, Lymphocytes ( %) (Auto) 12.6L, Monocytes (%) (Auto) 8.4, Eosinophils (%) (Auto) 0.5, Basophils (%) (Auto) 0.6, Differential Total Cells Counted 100, Neutrophils % ( Manual) 80H, Lymphocytes % (Manual) 11L, Monocytes % (Manual) 9, Eosinophils % ( Manual) 0, Basophils % (Manual) 0, Band Neutrophils 0, Platelet Estimate Adequate, Platelet Morphology Normal, Red Blood Cell Morphology Normal, Erythrocyte Sedimentation Rate 54H, Reticulocyte Count 1.2, Sodium Level 136, Potassium Level 4.5, Chloride Level 93L, Carbon Dioxide Level 20L, Anion Gap 23H , Blood Urea Nitrogen 59H, Creatinine 10.7H, Estimat Glomerular Filtration Rate 3.6, Glucose Level 167H, Calcium Level 10.7H, Iron Level 43L, Total Iron Binding Capacity 366, Percent Iron Saturation 12L, Unsaturated Iron Binding 323 , Total Bilirubin 0.4, Aspartate Amino Transf (AST/SGOT) 13L, Alanine Aminotransferase (ALT/SGPT) 14, Alkaline Phosphatase 254H, Lactate Dehydrogenase 145, Pro-B-Type Natriuretic Peptide [Pending], Total Protein 7.0, Albumin 3.7, Globulin 3.3, Albumin/Globulin Ratio 1.1, Triglycerides Level 228H , Cholesterol Level 107, LDL Cholesterol 33, HDL Cholesterol 41, Cholesterol/ HDL Ratio 2.6L, Vitamin B12 Level 473, Folate 19.9H, Thyroid Stimulating Hormone (TSH) 1.253 02/01/17 08:30: Prothrombin Time 11.2, Prothromb Time International Ratio 1.1, Activated Partial Thromboplast Time 36H Height (Feet): 5 Height (Inches): 6.00 Weight (Pounds): 260 General Appearance: lethargic EENT: normal ENT inspection Neck: normal alignment Cardiovascular: normal peripheral pulses, normal rate, regular rhythm Respiratory/Chest: chest wall non-tender, lungs clear, normal breath sounds Abdomen: normal bowel sounds, non tender, soft Extremities: normal inspection Edema: no edema noted Arm (L), no edema noted Arm (R), no edema noted Leg (L), no edema noted Leg (R), no edema noted Pedal (L), no edema noted Pedal (R), no edema noted Generalized Neurologic: responsive, motor weakness Skin: normal pigmentation, warm/dry YOLIS REGAN Feb 01, 2017 13:23
[2017-02-02] VITALS: BP 137/52
[2017-02-02 04:00] VITALS: BP 127/51
[2017-02-02] MEDS: NovoLOG Insulin Flexpen SUBQ SCH ×4 (06:30→21:00)
[2017-02-02 08:00] VITALS: BP 192/92
--- NOTE | 2017-02-02 08:31 | Consultation ---
DATE OF CONSULTATION: 02/01/2017 CARDIOLOGY CONSULTATION REFERRING PHYSICIAN: Woodrow Lord D.O. REASON FOR CONSULTATION: Management of syncope. HISTORY OF PRESENT ILLNESS: The patient is a very unfortunate 61-year-old female, who presents to the hospital after she had an episode of syncope. According to the patient's , after taking a dose of blood pressure medication, she felt dizzy and lightheaded and she passed out. She has history of end-stage renal disease and she believes that recently she has been getting more fluid out of her through dialysis. At the time of arrival of EMS, she was very sedated, not answering questions appropriately, her oxygenation was very low as well. At the time of arrival to the ED, blood pressure was 80/32 mmHg and heart rate of 76. Initial 12-lead electrocardiogram showed sinus rhythm at a rate of [address] and T-wave abnormalities. Initial troponin level was slightly elevated at 0.07. BNP was also 10,579. She was admitted to telemetry for further evaluation and assessment. Cardiology consultation was made at the request of Dr. Lord for evaluation and management of her condition. PAST MEDICAL HISTORY: History of end-stage renal disease, anemia of chronic kidney disease, renal osteodystrophy, hypertension, diabetes mellitus, morbid obesity, and AV fistula placement in both right and left upper extremities. PAST SURGICAL HISTORY: AV fistula placed in both upper extremities. MEDICATIONS: List of medications at home includes aspirin 81 mg p.o. daily, carvedilol 12.5 mg twice daily, clonidine 0.2 mg once a day, Jonelle-Stefanie 0.8 mg p.o. three times a day, furosemide 4 mg twice daily, glipizide 10 mg p.o. twice daily, hydralazine 50 mg three times a day, loratadine 10 mg p.o. daily, minoxidil 2.5 mg p.o. daily, nifedipine XL 60 mg p.o. twice daily, Renvela 800 mg three times daily, Zocor 80 mg at bedtime, Januvia 100 mg p.o. daily, and valsartan/Diovan 320 mg daily. ALLERGIES: Azithromycin, povidone-iodine as well as soap. SOCIAL HISTORY: Lives at home with her . No history of tobacco, alcohol, or illicit drug use. FAMILY HISTORY: No premature coronary artery disease in first-degree relatives. REVIEW OF SYSTEMS: HEENT: Denies any headache, diplopia, or blurred vision. CONSTITUTIONAL: She had malaise and weakness, but no fever, chills, or night sweats. CARDIOVASCULAR: She had an episode of presyncope followed by syncope. Blood pressure on arrival to the emergency department was very low with systolic of 80 mmHg. She denied any chest pain or shortness of breath, PND, orthopnea, or leg swelling. PULMONARY: Denies any cough, hemoptysis, or wheezing. GASTROINTESTINAL: Denies any nausea, vomiting, diarrhea, constipation, abdominal pain, or GI bleed. GENITOURINARY: Hemodialysis three days a week. NEUROLOGY: Denies any motor dysfunction, sensory deficit, or altered speech. PHYSICAL EXAMINATION: VITAL SIGNS: Blood pressure is 80/32, pulse of 76, respirations of 18, O2 saturation of 93% on room air, and temperature 98.4 degrees Fahrenheit. GENERAL: The patient is a very weak and pale-looking female, in no apparent respiratory distress. Alert and oriented x4. HEENT: Atraumatic and normocephalic. Anicteric. Pupils are equal, round, and reactive to light and accommodation. Conjunctival pallor is present. NECK: JVP less than 5 cm. No carotid bruit. Carotid upstrokes 2+ bilaterally. CARDIOVASCULAR: Normal S1 and S2. Regular rate and rhythm. No murmurs, gallops or rubs. There is some irregularity of the pulse with 2/6 midsystolic murmur at the left sternal border. PMI is at fourth intercostal space in the midclavicular line. LUNGS: Clear to auscultation bilaterally. ABDOMEN: Distended due to obesity. Cannot assess hepatosplenomegaly due to obesity. Positive bowel sounds. Soft and nontender. EXTREMITIES: There is 1+ bilateral edema. LABORATORY AND DIAGNOSTIC DATA: Laboratory findings, sodium was 134, potassium was 3.3, chloride 94, bicarbonate 24, BUN of 42, creatinine 8.3, and glucose is 173. Calcium is 10.1. Troponin I is 0.07. BNP was 10,579. WBC was 9.6, hemoglobin 9.9, hematocrit 30.8, and platelet count is 185,000. INR is 1.1. Chest x-ray showed cardiomegaly with mild pulmonary interstitial congestion. ASSESSMENT AND PLAN: The patient is a very unfortunate 61-year-old female, seen in cardiology consultation at the request of Dr. Lord. 1. Hypotension, most likely hypovolemic per history. The patient had an episode of syncope as well. There has been no evidence of cardiac arrhythmia ever since her arrival to the emergency department. We will continue monitoring her cardiac rhythm. We will obtain carotid ultrasound to assess carotid arteries. The patient will have 2D echocardiography for assessment of left ventricular systolic and diastolic function. 2. History of diabetes mellitus. 3. History of hypertension, probably refractory as the patient has been on at least five classes of different blood pressure medications including minoxidil, hydralazine, nifedipine, carvedilol, furosemide, and clonidine. 4. Dyslipidemia. I would like to switch her from simvastatin to the lower dose of atorvastatin 40 mg. A fasting lipid panel will be done. 5. Further therapeutic and diagnostic decision will be based on the results of the echocardiography. We will also like to assess the patient's serum magnesium level. 6. Slight elevation of troponin in this patient could be because of transient hypotension. We will obtain serial troponin I level. A 12-lead electrocardiogram does not show any evidence of ischemia. A 2D echocardiography for assessment of wall motion would help to manage this condition. I would like to thank, Dr. Lord, for allowing me to participate in the care of this patient. Guevara Gates M.D. DR: ISABEL JOB#: [id number] CC:
[2017-02-02] MEDS: sitaGLIPtin 25mg tab ORAL SCH (08:43)
[2017-02-02] MEDS: Aspirin Baby 81mg ORAL SCH (08:43)
[2017-02-02] MEDS: Heparin 5000 units/ml inj SUBQ SCH ×2 (08:45→22:26)
[2017-02-02 09:33] LABS: BASOPHILS % (AUTO) 0.7 % (0.0-2.0); EOSINOPHILS % (AUTO) 0.8 % (0.0-3.0); LYMPHOCYTES % (AUTO) 15.1 % (20.0-45.0); MEAN CORPUSCULAR HEMOGLOBIN 30.3 PG (27.0-31.0); MEAN CORPUSCULAR HGB CONC 30.9 G/DL (32.0-36.0); MEAN CORPUSCULAR VOLUME 98 FL (80-99); MEAN PLATELET VOLUME 8.6 FL (6.5-10.1); MONOCYTES % (AUTO) 10.8 % (1.0-10.0); NEUTROPHILS % (AUTO) 72.6 % (45.0-75.0); PLATELET COUNT 190 K/UL (150-450); RED BLOOD COUNT 3.49 M/UL (4.20-5.40); RED CELL DISTRIBUTION WIDTH 13.9 % (11.6-14.8); WHITE BLOOD COUNT 8.2 K/UL (4.8-10.8)
[2017-02-02 10:36] LABS: ALANINE AMINOTRANSFERASE 15 U/L (12-78); ANION GAP 18 mmol/L (5-15); ASPARTATE AMINO TRANSFERASE 12 U/L (15-37); CALCIUM 10.8 MG/DL (8.5-10.1); CARBON DIOXIDE 26 MMOL/L (21-32); CHLORIDE 93 MMOL/L (98-107); CREATININE 11.2 MG/DL (0.55-1.30); GLOMERULAR FILTRATION RATE 3.5 mL/min (>60); POTASSIUM 4.5 MMOL/L (3.5-5.1); SODIUM 136 MMOL/L (136-145); TOTAL PROTEIN 7.5 G/DL (6.4-8.2)
--- NOTE | 2017-02-02 11:57 | Diagnostic Imaging Report ---
Indication: DYSPNEA Technique: One view of the chest Comparison: 02/01/2017 Findings: The heart is enlarged. There is central bronchial wall thickening, but no elayne congestion. There may be trace left pleural fluid. Findings are unchanged Impression: Remain Trace left pleural fluid No significant interim change
[2017-02-02 12:00] VITALS: BP 187/80
[2017-02-02 12:16] LABS: PTH INTACT 537 pg/mL (15-65)
--- NOTE | 2017-02-02 13:29 | Nephrology Progress Note ---
Assessment/Plan Assessment 1. End-stage coronary disease. 2. Anemia of chronic kidney disease. 3. Hypokalemia. 4. Hypotension. 5. Altered mental status. Plan plan hold bp meds repeat dialysis today check phos,pth continue epogen Subjective Constitutional: Reports: malaise, weakness HEENT: Reports: no symptoms Genitourinary: Reports: no symptoms Neurologic/Psychiatric: Reports: no symptoms Subjective alert and awake denies any CP or SOB had dialysis yesterday awaiting for hemodialysis Objective Objective Last 24 Hour Vital Signs Date Time Temp Pulse Resp B/P (MAP) Pulse Ox O2 Delivery O2 Flow Rate FiO2 02/02/17 08:00 98.6 90 20 192/92 98 Nasal Cannula 3.0 02/02/17 04:00 93 02/02/17 04:00 98.2 97 20 127/51 98 Nasal Cannula 2.0 02/02/17 00:00 97.9 98 20 137/52 96 Nasal Cannula 20.0 02/02/17 00:00 86 02/01/17 20:00 88 02/01/17 20:00 98.2 92 20 146/59 93 Room Air 02/01/17 16:00 88 02/01/17 15:37 96.3 82 18 132/71 94 Nasal Cannula 2.0 02/01/17 14:15 Nasal Cannula 2.0 Laboratory Tests 02/01/17 13:30: Hemoglobin A1c 7.4H, Calcium (Send out) 10.0, PTH (Intact) Whole Molecule Comment, Parathyroid Hormone (Intact) 537H 02/02/17 08:50: White Blood Count 8.2, Red Blood Count 3.49L, Hemoglobin 10.6L, Hematocrit 34.2L , Mean Corpuscular Volume 98, Mean Corpuscular Hemoglobin 30.3, Mean Corpuscular Hemoglobin Concent 30.9L, Red Cell Distribution Width 13.9, Platelet Count 190, Mean Platelet Volume 8.6, Neutrophils (%) (Auto) 72.6, Lymphocytes (%) (Auto) 15.1L, Monocytes (%) (Auto) 10.8H, Eosinophils (%) (Auto ) 0.8, Basophils (%) (Auto) 0.7, Sodium Level 136, Potassium Level 4.5, Chloride Level 93L, Carbon Dioxide Level 26, Anion Gap 18H, Blood Urea Nitrogen 61H, Creatinine 11.2H, Estimat Glomerular Filtration Rate 3.5, Glucose Level 203H, Calcium Level 10.8H, Total Bilirubin 0.5, Aspartate Amino Transf (AST/SGOT ) 12L, Alanine Aminotransferase (ALT/SGPT) 15, Alkaline Phosphatase 254H, Pro-B- Type Natriuretic Peptide 52181K, Total Protein 7.5, Albumin 3.7, Globulin 3.8, Albumin/Globulin Ratio 1.0 Height (Feet): 5 Height (Inches): 6.00 Weight (Pounds): 260 Objective HEAD AND NECK: No JVP. No LAD. Extraocular movements intact. Pupils are reactive to light and accommodation. LUNGS: Decreased breathing sounds. CARDIAC: Regular rate and rhythm. S1, S2. No murmur. No rub. ABDOMEN: Obese, nontender, and nondistended. EXTREMITIES: She has 1+ edema. No clubbing. No cyanosis. NEUROLOGIC: Cranial nerves II though XII within normal limits. Upper and lower extremities are grossly intact. IKER GARCIA Feb 02, 2017 13:29
--- NOTE | 2017-02-02 14:08 | Pulmonology Progress Note ---
Assessment/Plan Problems: (1) Acute exacerbation of CHF (congestive heart failure) (2) Encephalopathy acute (3) Diabetes mellitus (4) ESRD (end stage renal disease) (5) Overuse of medication (6) Morbid obesity with BMI of 40.0-44.9, adult (7) HTN (hypertension) Assessment/Plan doing better repeat cxr shows improvement got dialyzed yesterdays, getting dialysis today as well check echo, EF 65% sliding scale Subjective ROS Limited/Unobtainable: No Constitutional: Reports: no symptoms HEENT: Repors: no symptoms Allergies: Coded Allergies: AZITHROMYCIN (Verified Allergy, Unknown, 01/30/17) POVIDONE-IODINE (Verified Allergy, Unknown, 01/30/17) SOAP (Verified Allergy, Unknown, 01/30/17) Objective Last 24 Hour Vital Signs Date Time Temp Pulse Resp B/P (MAP) Pulse Ox O2 Delivery O2 Flow Rate FiO2 02/02/17 12:00 98.2 88 20 187/80 96 Room Air 02/02/17 08:00 98.6 90 20 192/92 98 Nasal Cannula 3.0 02/02/17 04:00 93 02/02/17 04:00 98.2 97 20 127/51 98 Nasal Cannula 2.0 02/02/17 00:00 97.9 98 20 137/52 96 Nasal Cannula 20.0 02/02/17 00:00 86 02/01/17 20:00 88 02/01/17 20:00 98.2 92 20 146/59 93 Room Air 02/01/17 16:00 88 02/01/17 15:37 96.3 82 18 132/71 94 Nasal Cannula 2.0 02/01/17 14:15 Nasal Cannula 2.0 Intake and Output 02/02/17 02/03/17 19:00 07:00 Intake Total 350 ml Balance 350 ml Intake Oral 350 ml # Voids 1 General Appearance: WD/WN HEENT: normocephalic, atraumatic Respiratory/Chest: chest wall non-tender, lungs clear Breasts: no masses Cardiovascular: normal peripheral pulses, normal rate Microbiology Date/Time Source Procedure Growth Status 01/31/17 06:30 Nasal Nares MRSA Culture - Final NO METHICILLIN RESISTANT STAPH AUREUS... Complete 01/31/17 06:30 Rectum VRE Culture - Final Enterococcus Faecium - Vre Complete Laboratory Tests 02/02/17 08:50: White Blood Count 8.2, Red Blood Count 3.49L, Hemoglobin 10.6L, Hematocrit 34.2L , Mean Corpuscular Volume 98, Mean Corpuscular Hemoglobin 30.3, Mean Corpuscular Hemoglobin Concent 30.9L, Red Cell Distribution Width 13.9, Platelet Count 190, Mean Platelet Volume 8.6, Neutrophils (%) (Auto) 72.6, Lymphocytes (%) (Auto) 15.1L, Monocytes (%) (Auto) 10.8H, Eosinophils (%) (Auto ) 0.8, Basophils (%) (Auto) 0.7, Sodium Level 136, Potassium Level 4.5, Chloride Level 93L, Carbon Dioxide Level 26, Anion Gap 18H, Blood Urea Nitrogen 61H, Creatinine 11.2H, Estimat Glomerular Filtration Rate 3.5, Glucose Level 203H, Calcium Level 10.8H, Total Bilirubin 0.5, Aspartate Amino Transf (AST/SGOT ) 12L, Alanine Aminotransferase (ALT/SGPT) 15, Alkaline Phosphatase 254H, Pro-B- Type Natriuretic Peptide 57792F, Total Protein 7.5, Albumin 3.7, Globulin 3.8, Albumin/Globulin Ratio 1.0 Current Medications Medications (Trade) Dose Ordered Sig/Renée Route PRN Reason Start Time Stop Time Status Last Admin Dose Admin Acetaminophen (Tylenol) 650 mg Q4H PRN ORAL fever 01/31/17 07:15 03/02/17 07:14 Al Hydroxide/Mg Hydroxide (Mylanta II) 30 ml Q6H PRN ORAL dyspepsia 01/31/17 07:15 03/02/17 07:14 Albuterol/ Ipratropium (DuoNeb 0.5-3(2.5)mg/3ml) 3 ml Q6H PRN HHN dyspnea 01/31/17 07:15 02/05/17 07:14 Aspirin (ASA) 81 mg DAILY ORAL 01/31/17 15:00 03/02/17 14:59 02/02/17 08:43 Clonidine HCl (Catapres) 0.1 mg Q4H PRN ORAL For High Blood Pressure 01/31/17 07:15 03/02/17 07:14 Dextrose (Dextrose 50%) STAT PRN IV Hypoglycemia 01/31/17 07:15 03/02/17 07:14 Epoetin Elías (Procrit (for ESRD on dialysis)) 10,000 units TUE-WED-TUE SUBQ 02/02/17 21:00 03/04/17 20:59 Furosemide (Lasix) 100 mg Q8H PRN IV dyspnea 01/31/17 07:15 03/02/17 07:14 Heparin Sodium (Porcine) (Heparin 5000 units/ml) 5,000 units EVERY 12 HOURS SUBQ 01/31/17 21:00 03/02/17 20:59 02/02/17 08:45 Insulin Aspart (NovoLOG) BEFORE MEALS AND HS SUBQ 01/31/17 09:40 03/02/17 09:39 02/02/17 12:41 Iron Sucrose 100 mg/Sodium Chloride 60 ml @ 240 mls/hr BEDTIME IV 02/02/17 21:00 02/06/17 21:14 Morphine Sulfate (Morphine Sulfate) 4 mg Q4H PRN IVP PAIN 4-10 02/01/17 08:00 02/08/17 07:59 Ondansetron HCl (Zofran) 4 mg Q6H PRN IVP Nausea & Vomiting 01/31/17 07:15 03/02/17 07:14 02/01/17 20:30 Polyethylene Glycol (Miralax) 17 gm HSPRN PRN ORAL Constipation 01/31/17 07:15 03/02/17 07:14 Sevelamer Carbonate (Renvela) 800 mg THREE TIMES A DAY ORAL 01/31/17 15:00 03/02/17 14:59 02/02/17 12:40 Sitagliptin Phosphate (Januvia) 25 mg DAILY ORAL 01/31/17 15:00 03/02/17 14:59 02/02/17 08:43 Zolpidem Tartrate (Ambien) 5 mg HSPRN PRN ORAL Insomnia 01/31/17 07:15 02/07/17 07:14 MARINA PARRISH Feb 02, 2017 14:08
--- NOTE | 2017-02-02 14:51 | General Progress Note ---
Assessment/Plan Problem List: (1) Acute exacerbation of CHF (congestive heart failure) ICD Codes: I50.9 - Heart failure, unspecified SNOMED: 70251608, 253776175 Qualifiers: Qualified Codes: I50.9 - Heart failure, unspecified (2) Morbid obesity with BMI of 40.0-44.9, adult ICD Codes: E66.01 - Morbid (severe) obesity due to excess calories; Z68.41 - Body mass index (BMI) 40.0-44.9, adult SNOMED: 771298938, 464019026 (3) Diabetes mellitus ICD Codes: E11.9 - Type 2 diabetes mellitus without complications SNOMED: 04088215 (4) ESRD (end stage renal disease) ICD Codes: N18.6 - End stage renal disease SNOMED: 58910852 (5) HTN (hypertension) ICD Codes: I10 - Essential (primary) hypertension SNOMED: 22391209 (6) Encephalopathy acute ICD Codes: G93.40 - Encephalopathy, unspecified; Z68.41 - Body mass index (BMI ) 40.0-44.9, adult SNOMED: 1940842, 947936203 Status: stable, progressing, tolerating diet Assessment/Plan ot pt diet dialysis o2 pulm tx cbc bmp am dc plan w hh Subjective Constitutional: Reports: weakness Allergies: Coded Allergies: AZITHROMYCIN (Verified Allergy, Unknown, 01/30/17) POVIDONE-IODINE (Verified Allergy, Unknown, 01/30/17) SOAP (Verified Allergy, Unknown, 01/30/17) All Systems: reviewed and negative except above Subjective o2nc calm Objective Last 24 Hour Vital Signs Date Time Temp Pulse Resp B/P (MAP) Pulse Ox O2 Delivery O2 Flow Rate FiO2 02/02/17 12:00 98.2 88 20 187/80 96 Room Air 02/02/17 08:00 98.6 90 20 192/92 98 Nasal Cannula 3.0 02/02/17 04:00 93 02/02/17 04:00 98.2 97 20 127/51 98 Nasal Cannula 2.0 02/02/17 00:00 97.9 98 20 137/52 96 Nasal Cannula 20.0 02/02/17 00:00 86 02/01/17 20:00 88 02/01/17 20:00 98.2 92 20 146/59 93 Room Air 02/01/17 16:00 88 02/01/17 15:37 96.3 82 18 132/71 94 Nasal Cannula 2.0 Intake and Output 02/02/17 02/03/17 19:00 07:00 Intake Total 350 ml Balance 350 ml Intake Oral 350 ml # Voids 1 Laboratory Tests 02/02/17 08:50: White Blood Count 8.2, Red Blood Count 3.49L, Hemoglobin 10.6L, Hematocrit 34.2L , Mean Corpuscular Volume 98, Mean Corpuscular Hemoglobin 30.3, Mean Corpuscular Hemoglobin Concent 30.9L, Red Cell Distribution Width 13.9, Platelet Count 190, Mean Platelet Volume 8.6, Neutrophils (%) (Auto) 72.6, Lymphocytes (%) (Auto) 15.1L, Monocytes (%) (Auto) 10.8H, Eosinophils (%) (Auto ) 0.8, Basophils (%) (Auto) 0.7, Sodium Level 136, Potassium Level 4.5, Chloride Level 93L, Carbon Dioxide Level 26, Anion Gap 18H, Blood Urea Nitrogen 61H, Creatinine 11.2H, Estimat Glomerular Filtration Rate 3.5, Glucose Level 203H, Calcium Level 10.8H, Total Bilirubin 0.5, Aspartate Amino Transf (AST/SGOT ) 12L, Alanine Aminotransferase (ALT/SGPT) 15, Alkaline Phosphatase 254H, Pro-B- Type Natriuretic Peptide 60528T, Total Protein 7.5, Albumin 3.7, Globulin 3.8, Albumin/Globulin Ratio 1.0 Height (Feet): 5 Height (Inches): 6.00 Weight (Pounds): 260 General Appearance: lethargic EENT: normal ENT inspection Neck: normal alignment Cardiovascular: normal peripheral pulses, normal rate, regular rhythm Respiratory/Chest: chest wall non-tender, lungs clear, normal breath sounds Abdomen: normal bowel sounds, non tender, soft Extremities: normal inspection Edema: no edema noted Arm (L), no edema noted Arm (R), no edema noted Leg (L), no edema noted Leg (R), no edema noted Pedal (L), no edema noted Pedal (R), no edema noted Generalized Neurologic: motor weakness Skin: normal pigmentation, warm/dry YOLIS REGAN Feb 02, 2017 14:51
[2017-02-02 14:52] VITALS: BP 114/42
--- NOTE | 2017-02-02 15:14 | Cardiology Report ---
APPROVED REPORT EXAM: Two-dimensional and M-mode echocardiogram with Doppler and color Doppler. INDICATION Congestive Heart Failure M-Mode DIMENSIONS IVSd1.8 (0.7-1.1cm)Left Atrium (MM)5.9 (1.6-4.0cm) LVDd5.6 (3.5-5.6cm)Aortic Root2.4 (2.0-3.7cm) PWd1.5 (0.7-1.1cm)Aortic Cusp Exc.1.5 (1.5-2.0cm) IVSs2.5 cm LVDs2.3 (2.5-4.0cm) PWs4.0 cm Technically difficult study due to poor acoustical windows. Normal left ventricular chamber size, systolic function and wall motion. Left ventricular ejection fraction estimated to be 60-65%. No evidence of left ventricular hypertrophy. No evidence of pericardial or pleural effusion. Mild bi-atrial enlargement by 2D. Focal aortic valve sclerosis with adequate cusp excursion. Normal mitral valve leaflets with normal excursion. Normal mitral annulus and aortic root. Pulmonic valve is well visualized. Normal tricuspid valve structure. IVC is normal in size and collapsible with respiration. A color flow and spectral Doppler study was performed and revealed: No aortic regurgitation. No mitral regurgitation. Mitral diastolic velocities suggest reduced left ventricular relaxation c/w diastolic dysfunction grade 1. Moderate tricuspid regurgitation. Tricuspid systolic velocities suggests peak right ventricular systolic pressure of 43mmHg Consistent with mild pulmonary hypertension.
[2017-02-02 16:00] VITALS: BP 152/93
[2017-02-02] MEDS: Epogen (for ESRD on dialysis) SUBQ SCH (22:26)
[2017-02-02] MEDS: Iron Sucrose 100 MG in NS 55 ML IV SCH (22:30)
--- NOTE | 2017-02-02 23:27 | Diagnostic Imaging Report ---
APPROVED REPORT CPT Code: 58209 Vascular Symptoms Syncope Doppler Spectral Velocity Analysis RightLeft BILATERAL: CCA/BULB - Imaging reveals irregular, minimal plaque (20-30%) in both carotid internal and external carotid arteries. The Doppler spectral flow analysis is within normal limits throughout the internal and external carotid arteries. VERTEBRALS - Imaging reveals both vertebral arteries to be patent, without evidence of stenosis or steal.
--- NOTE | 2017-02-02 23:58 | Cardiology Progress Note ---
Assessment/Plan Assessment/Plan 1. Hypotension, most likely hypovolemic per history. The patient had an episode of syncope as well. There has been no evidence of cardiac arrhythmia ever since her arrival to the emergency department. Echo reveals normal LV systolic function with LVEF at 60%. 2. History of diabetes mellitus. 3. History of hypertension, probably refractory as the patient has been on at least five classes of different blood pressure medications including minoxidil, hydralazine, nifedipine, carvedilol, furosemide, and clonidine. 4. Dyslipidemia, continue atorvastatin 40 mg. 5. Slight elevation of troponin in this patient could be because of transient hypotension versus trop leak due to ESRD. Serial trop I level will be measured. Subjective Subjective Sinus rhythm at 90. No cardiac events. Objective Last 24 Hour Vital Signs Date Time Temp Pulse Resp B/P (MAP) Pulse Ox O2 Delivery O2 Flow Rate FiO2 02/02/17 20:30 Nasal Cannula 2.0 02/02/17 16:25 Nasal Cannula 2.0 02/02/17 16:00 90 02/02/17 16:00 98.1 91 20 152/93 99 Nasal Cannula 2.0 02/02/17 14:52 95 114/42 02/02/17 12:00 98.2 88 20 187/80 96 Room Air 02/02/17 12:00 95 02/02/17 08:00 98.6 90 20 192/92 98 Nasal Cannula 3.0 02/02/17 08:00 99 02/02/17 04:00 93 02/02/17 04:00 98.2 97 20 127/51 98 Nasal Cannula 2.0 02/02/17 00:00 97.9 98 20 137/52 96 Nasal Cannula 20.0 02/02/17 00:00 86 Intake and Output 02/02/17 02/03/17 19:00 07:00 Intake Total 710 ml Output Total 2700 ml Balance 710 ml -2700 ml Intake Oral 710 ml Hemodialysis UF 2700 ml # Voids 1 2D Echo: LVEF 60-65%, CRISTELA, RVSP 43 mmHg, Grade I LVDD, Mild RI Laboratory Tests Test 02/02/17 08:50 White Blood Count 8.2 K/UL (4.8-10.8) Red Blood Count 3.49 M/UL (4.20-5.40) L Hemoglobin 10.6 G/DL (12.0-16.0) L Hematocrit 34.2 % (37.0-47.0) L Mean Corpuscular Volume 98 FL (80-99) Mean Corpuscular Hemoglobin 30.3 PG (27.0-31.0) Mean Corpuscular Hemoglobin Concent 30.9 G/DL (32.0-36.0) L Red Cell Distribution Width 13.9 % (11.6-14.8) Platelet Count 190 K/UL (150-450) Mean Platelet Volume 8.6 FL (6.5-10.1) Neutrophils (%) (Auto) 72.6 % (45.0-75.0) Lymphocytes (%) (Auto) 15.1 % (20.0-45.0) L Monocytes (%) (Auto) 10.8 % (1.0-10.0) H Eosinophils (%) (Auto) 0.8 % (0.0-3.0) Basophils (%) (Auto) 0.7 % (0.0-2.0) Sodium Level 136 MMOL/L (136-145) Potassium Level 4.5 MMOL/L (3.5-5.1) Chloride Level 93 MMOL/L (98-107) L Carbon Dioxide Level 26 MMOL/L (21-32) Anion Gap 18 mmol/L (5-15) H Blood Urea Nitrogen 61 mg/dL (7-18) H Creatinine 11.2 MG/DL (0.55-1.30) H Estimat Glomerular Filtration Rate 3.5 mL/min (>60) Glucose Level 203 MG/DL (74-106) H Calcium Level 10.8 MG/DL (8.5-10.1) H Total Bilirubin 0.5 MG/DL (0.2-1.0) Aspartate Amino Transf (AST/SGOT) 12 U/L (15-37) L Alanine Aminotransferase (ALT/SGPT) 15 U/L (12-78) Alkaline Phosphatase 254 U/L (46-116) H Pro-B-Type Natriuretic Peptide 53918 pg/mL (0-125) H Total Protein 7.5 G/DL (6.4-8.2) Albumin 3.7 G/DL (3.4-5.0) Globulin 3.8 g/dL Albumin/Globulin Ratio 1.0 (1.0-2.7) Microbiology Date/Time Source Procedure Growth Status 01/31/17 06:30 Nasal Nares MRSA Culture - Final NO METHICILLIN RESISTANT STAPH AUREUS... Complete 01/31/17 06:30 Rectum VRE Culture - Final Enterococcus Faecium - Vre Complete Objective HEENT: Atraumatic and normocephalic. Anicteric. Pupils are equal, round, and reactive to light and accommodation. Conjunctival pallor is present. NECK: JVP less than 5 cm. No carotid bruit. Carotid upstrokes 2+ bilaterally. CARDIOVASCULAR: Normal S1 and S2. Regular rate and rhythm. No murmurs, gallops or rubs. There is some irregularity of the pulse with 2/6 midsystolic murmur at the left sternal border. PMI is at fourth intercostal space in the midclavicular line. LUNGS: Clear to auscultation bilaterally. ABDOMEN: Distended due to obesity. Cannot assess hepatosplenomegaly due to obesity. Positive bowel sounds. Soft and nontender. EXTREMITIES: There is 1+ bilateral edema. JOSE ALBERTO WONG Feb 02, 2017 23:58
[2017-02-03] VITALS (7 sets, daily range): BP systolic 130–165; BP diastolic 37–89
[2017-02-03] MEDS: NovoLOG Insulin Flexpen SUBQ SCH ×4 (06:02→20:38)
[2017-02-03 07:47] LABS: BASOPHILS % (AUTO) 0.8 % (0.0-2.0); LYMPHOCYTES % (AUTO) 14.5 % (20.0-45.0); MEAN CORPUSCULAR HEMOGLOBIN 31.3 PG (27.0-31.0); MEAN CORPUSCULAR VOLUME 98 FL (80-99); MEAN PLATELET VOLUME 8.9 FL (6.5-10.1); NEUTROPHILS % (AUTO) 71.7 % (45.0-75.0); PLATELET COUNT 166 K/UL (150-450); RED BLOOD COUNT 3.17 M/UL (4.20-5.40); RED CELL DISTRIBUTION WIDTH 14.3 % (11.6-14.8); WHITE BLOOD COUNT 7.4 K/UL (4.8-10.8)
--- NOTE | 2017-02-03 08:09 | Nephrology Progress Note ---
Assessment/Plan Assessment 1. End-stage coronary disease. 2. Anemia of chronic kidney disease. 3. Hypokalemia. 4. Hypotension. 5. Altered mental status. Plan plan hold bp meds repeat dialysis in am daily wt continue epogen Subjective Constitutional: Reports: no symptoms, malaise, weakness HEENT: Reports: no symptoms Genitourinary: Reports: no symptoms Neurologic/Psychiatric: Reports: no symptoms Subjective alert and awake denies any CP or SOB had dialysis yesterday c/o fatigue and weakness Objective Objective Last 24 Hour Vital Signs Date Time Temp Pulse Resp B/P (MAP) Pulse Ox O2 Delivery O2 Flow Rate FiO2 02/03/17 04:00 97.6 74 18 130/56 96 Nasal Cannula 2.0 02/03/17 00:00 97.5 89 18 134/56 97 Nasal Cannula 2.0 02/02/17 20:30 Nasal Cannula 2.0 02/02/17 20:00 83 02/02/17 16:25 Nasal Cannula 2.0 02/02/17 16:00 90 02/02/17 16:00 98.1 91 20 152/93 99 Nasal Cannula 2.0 02/02/17 14:52 95 114/42 02/02/17 12:00 98.2 88 20 187/80 96 Room Air 02/02/17 12:00 95 Laboratory Tests 02/02/17 08:50: White Blood Count 8.2, Red Blood Count 3.49L, Hemoglobin 10.6L, Hematocrit 34.2L , Mean Corpuscular Volume 98, Mean Corpuscular Hemoglobin 30.3, Mean Corpuscular Hemoglobin Concent 30.9L, Red Cell Distribution Width 13.9, Platelet Count 190, Mean Platelet Volume 8.6, Neutrophils (%) (Auto) 72.6, Lymphocytes (%) (Auto) 15.1L, Monocytes (%) (Auto) 10.8H, Eosinophils (%) (Auto ) 0.8, Basophils (%) (Auto) 0.7, Sodium Level 136, Potassium Level 4.5, Chloride Level 93L, Carbon Dioxide Level 26, Anion Gap 18H, Blood Urea Nitrogen 61H, Creatinine 11.2H, Estimat Glomerular Filtration Rate 3.5, Glucose Level 203H, Calcium Level 10.8H, Total Bilirubin 0.5, Aspartate Amino Transf (AST/SGOT ) 12L, Alanine Aminotransferase (ALT/SGPT) 15, Alkaline Phosphatase 254H, Pro-B- Type Natriuretic Peptide 50091O, Total Protein 7.5, Albumin 3.7, Globulin 3.8, Albumin/Globulin Ratio 1.0 02/03/17 04:50: White Blood Count 7.4, Red Blood Count 3.17L, Hemoglobin 9.9L, Hematocrit 31.0L , Mean Corpuscular Volume 98, Mean Corpuscular Hemoglobin 31.3H, Mean Corpuscular Hemoglobin Concent 32.0, Red Cell Distribution Width 14.3, Platelet Count 166, Mean Platelet Volume 8.9, Neutrophils (%) (Auto) 71.7, Lymphocytes (% ) (Auto) 14.5L, Monocytes (%) (Auto) 12.0H, Eosinophils (%) (Auto) 1.0, Basophils (%) (Auto) 0.8, Sodium Level [Pending], Potassium Level [Pending], Chloride Level [Pending], Carbon Dioxide Level [Pending], Blood Urea Nitrogen [ Pending], Creatinine [Pending], Estimat Glomerular Filtration Rate [Pending], Glucose Level [Pending], Calcium Level [Pending], Phosphorus Level [Pending], Troponin I [Pending] Height (Feet): 5 Height (Inches): 6.00 Weight (Pounds): 260 Objective HEAD AND NECK: No JVP. No LAD. Extraocular movements intact. Pupils are reactive to light and accommodation. LUNGS: Decreased breathing sounds. CARDIAC: Regular rate and rhythm. S1, S2. No murmur. No rub. ABDOMEN: Obese, nontender, and nondistended. EXTREMITIES: She has 1+ edema. No clubbing. No cyanosis. NEUROLOGIC: Cranial nerves II though XII within normal limits. Upper and lower extremities are grossly intact. IKER GARCIA Feb 03, 2017 08:09
[2017-02-03 08:22] LABS: ANION GAP 14 mmol/L (5-15); CALCIUM 10.7 MG/DL (8.5-10.1); CARBON DIOXIDE 26 MMOL/L (21-32); CHLORIDE 97 MMOL/L (98-107); CREATININE 10.1 MG/DL (0.55-1.30); GLOMERULAR FILTRATION RATE 3.9 mL/min (>60); POTASSIUM 5.2 MMOL/L (3.5-5.1); SODIUM 137 MMOL/L (136-145)
[2017-02-03] MEDS: Aspirin Baby 81mg ORAL SCH (09:15)
[2017-02-03] MEDS: sitaGLIPtin 25mg tab ORAL SCH (09:15)
[2017-02-03] MEDS: Heparin 5000 units/ml inj SUBQ SCH ×2 (09:21→20:37)
[2017-02-03 11:53] LABS: OTHERS PATHOLOGIST COMMENT
--- NOTE | 2017-02-03 15:10 | General Progress Note ---
Assessment/Plan Problem List: (1) Acute exacerbation of CHF (congestive heart failure) ICD Codes: I50.9 - Heart failure, unspecified SNOMED: 77193089, 037831296 Qualifiers: Qualified Codes: I50.9 - Heart failure, unspecified (2) Morbid obesity with BMI of 40.0-44.9, adult ICD Codes: E66.01 - Morbid (severe) obesity due to excess calories; Z68.41 - Body mass index (BMI) 40.0-44.9, adult SNOMED: 825229723, 941813908 (3) Diabetes mellitus ICD Codes: E11.9 - Type 2 diabetes mellitus without complications SNOMED: 68691554 (4) ESRD (end stage renal disease) ICD Codes: N18.6 - End stage renal disease SNOMED: 30510790 (5) HTN (hypertension) ICD Codes: I10 - Essential (primary) hypertension SNOMED: 98973580 (6) Encephalopathy acute ICD Codes: G93.40 - Encephalopathy, unspecified; Z68.41 - Body mass index (BMI ) 40.0-44.9, adult SNOMED: 4135834, 715162694 Status: stable, progressing, tolerating diet Assessment/Plan ot pt diet dialysis o2 pulm tx cbc bmp am dc plan w hh Subjective Constitutional: Reports: weakness Allergies: Coded Allergies: AZITHROMYCIN (Verified Allergy, Unknown, 01/30/17) POVIDONE-IODINE (Verified Allergy, Unknown, 01/30/17) SOAP (Verified Allergy, Unknown, 01/30/17) All Systems: reviewed and negative except above Subjective o2nc calm Objective Last 24 Hour Vital Signs Date Time Temp Pulse Resp B/P (MAP) Pulse Ox O2 Delivery O2 Flow Rate FiO2 02/03/17 12:00 98.2 87 18 165/89 94 Nasal Cannula 02/03/17 08:00 96.6 94 18 161/69 94 Nasal Cannula 2.0 02/03/17 04:00 97.6 74 18 130/56 96 Nasal Cannula 2.0 02/03/17 00:00 97.5 89 18 134/56 97 Nasal Cannula 2.0 02/02/17 20:30 Nasal Cannula 2.0 02/02/17 20:00 83 02/02/17 16:25 Nasal Cannula 2.0 02/02/17 16:00 90 02/02/17 16:00 98.1 91 20 152/93 99 Nasal Cannula 2.0 Laboratory Tests 02/03/17 04:50: White Blood Count 7.4, Red Blood Count 3.17L, Hemoglobin 9.9L, Hematocrit 31.0L , Mean Corpuscular Volume 98, Mean Corpuscular Hemoglobin 31.3H, Mean Corpuscular Hemoglobin Concent 32.0, Red Cell Distribution Width 14.3, Platelet Count 166, Mean Platelet Volume 8.9, Neutrophils (%) (Auto) 71.7, Lymphocytes (% ) (Auto) 14.5L, Monocytes (%) (Auto) 12.0H, Eosinophils (%) (Auto) 1.0, Basophils (%) (Auto) 0.8, Sodium Level 137, Potassium Level 5.2H, Chloride Level 97L, Carbon Dioxide Level 26, Anion Gap 14, Blood Urea Nitrogen 57H, Creatinine 10.1H, Estimat Glomerular Filtration Rate 3.9, Glucose Level 206H, Calcium Level 10.7H, Phosphorus Level 4.1, Troponin I 0.036 Height (Feet): 5 Height (Inches): 6.00 Weight (Pounds): 260 General Appearance: lethargic EENT: normal ENT inspection Neck: normal alignment Cardiovascular: normal peripheral pulses, normal rate, regular rhythm Respiratory/Chest: chest wall non-tender, lungs clear, normal breath sounds Abdomen: normal bowel sounds, non tender, soft Extremities: normal inspection Edema: no edema noted Arm (L), no edema noted Arm (R), no edema noted Leg (L), no edema noted Leg (R), no edema noted Pedal (L), no edema noted Pedal (R), no edema noted Generalized Neurologic: motor weakness Skin: normal pigmentation, warm/dry YOLIS REGAN Feb 03, 2017 15:10
[2017-02-03] MEDS: Iron Sucrose 100 MG in NS 55 ML IV SCH (20:24)
--- NOTE | 2017-02-03 21:35 | Cardiology Progress Note ---
Assessment/Plan Assessment/Plan 1. Hypotension, most likely hypovolemic per history. The patient had an episode of syncope as well. There has been no evidence of cardiac arrhythmia ever since her arrival to the emergency department. Echo reveals normal LV systolic function with LVEF at 60%. 2. History of diabetes mellitus. 3. History of hypertension, probably refractory as the patient has been on at least five classes of different blood pressure medications including minoxidil, hydralazine, nifedipine, carvedilol, furosemide, and clonidine. Will resume nifedipine and will adjust other BP medication dose accordingly. 4. Dyslipidemia, continue atorvastatin 40 mg. 5. Slight elevation of troponin in this patient could be because of transient hypotension versus trop leak due to ESRD. Second trop was negative. Subjective Subjective Sinus rhythm at 88. No cardiac events. Objective Last 24 Hour Vital Signs Date Time Temp Pulse Resp B/P (MAP) Pulse Ox O2 Delivery O2 Flow Rate FiO2 02/03/17 20:10 97.7 74 20 143/58 99 Nasal Cannula 2.0 74 02/03/17 19:51 88 18 Nasal Cannula 1.0 24 02/03/17 16:00 98.0 81 18 145/58 91 Nasal Cannula 2.0 02/03/17 12:00 98.2 87 18 165/89 94 Nasal Cannula 02/03/17 08:00 96.6 94 18 161/69 94 Nasal Cannula 2.0 02/03/17 04:00 97.6 74 18 130/56 96 Nasal Cannula 2.0 02/03/17 00:00 97.5 89 18 134/56 97 Nasal Cannula 2.0 Intake and Output 02/03/17 02/04/17 19:00 07:00 Intake Total 360 ml 60 ml Balance 360 ml 60 ml Intake Oral 360 ml IV Total 60 ml 2D Echo: LVEF 60-65%, CRISTELA, RVSP 43 mmHg, Grade I LVDD, Mild [place] Laboratory Tests Test 02/03/17 04:50 White Blood Count 7.4 K/UL (4.8-10.8) Red Blood Count 3.17 M/UL (4.20-5.40) L Hemoglobin 9.9 G/DL (12.0-16.0) L Hematocrit 31.0 % (37.0-47.0) L Mean Corpuscular Volume 98 FL (80-99) Mean Corpuscular Hemoglobin 31.3 PG (27.0-31.0) H Mean Corpuscular Hemoglobin Concent 32.0 G/DL (32.0-36.0) Red Cell Distribution Width 14.3 % (11.6-14.8) Platelet Count 166 K/UL (150-450) Mean Platelet Volume 8.9 FL (6.5-10.1) Neutrophils (%) (Auto) 71.7 % (45.0-75.0) Lymphocytes (%) (Auto) 14.5 % (20.0-45.0) L Monocytes (%) (Auto) 12.0 % (1.0-10.0) H Eosinophils (%) (Auto) 1.0 % (0.0-3.0) Basophils (%) (Auto) 0.8 % (0.0-2.0) Sodium Level 137 MMOL/L (136-145) Potassium Level 5.2 MMOL/L (3.5-5.1) H Chloride Level 97 MMOL/L (98-107) L Carbon Dioxide Level 26 MMOL/L (21-32) Anion Gap 14 mmol/L (5-15) Blood Urea Nitrogen 57 mg/dL (7-18) H Creatinine 10.1 MG/DL (0.55-1.30) H Estimat Glomerular Filtration Rate 3.9 mL/min (>60) Glucose Level 206 MG/DL (74-106) H Calcium Level 10.7 MG/DL (8.5-10.1) H Phosphorus Level 4.1 MG/DL (2.5-4.9) Troponin I 0.036 ng/mL (0.000-0.056) Objective HEENT: Atraumatic and normocephalic. Anicteric. Pupils are equal, round, and reactive to light and accommodation. Conjunctival pallor is present. NECK: JVP less than 5 cm. No carotid bruit. Carotid upstrokes 2+ bilaterally. CARDIOVASCULAR: Normal S1 and S2. Regular rate and rhythm. No murmurs, gallops or rubs. There is some irregularity of the pulse with 2/6 midsystolic murmur at the left sternal border. PMI is at fourth intercostal space in the midclavicular line. LUNGS: Clear to auscultation bilaterally. ABDOMEN: Distended due to obesity. Cannot assess hepatosplenomegaly due to obesity. Positive bowel sounds. Soft and nontender. EXTREMITIES: There is 1+ bilateral edema. JOSE ALBERTO WONG Feb 03, 2017 21:35
--- NOTE | 2017-02-03 21:46 | Pulmonology Progress Note ---
Assessment/Plan Problems: (1) Acute exacerbation of CHF (congestive heart failure) (2) Encephalopathy acute (3) Diabetes mellitus (4) ESRD (end stage renal disease) (5) Overuse of medication (6) Morbid obesity with BMI of 40.0-44.9, adult (7) HTN (hypertension) Assessment/Plan NO HD today doing better repeat cxr shows improvement got dialyzed yesterdays, getting dialysis today as well check echo, EF 65% sliding scale pain control Subjective ROS Limited/Unobtainable: No Constitutional: Reports: no symptoms HEENT: Repors: no symptoms Respiratory: Reports: no symptoms Allergies: Coded Allergies: AZITHROMYCIN (Verified Allergy, Unknown, 01/30/17) POVIDONE-IODINE (Verified Allergy, Unknown, 01/30/17) SOAP (Verified Allergy, Unknown, 01/30/17) Objective Last 24 Hour Vital Signs Date Time Temp Pulse Resp B/P (MAP) Pulse Ox O2 Delivery O2 Flow Rate FiO2 02/03/17 20:10 97.7 74 20 143/58 99 Nasal Cannula 2.0 74 02/03/17 19:51 88 18 Nasal Cannula 1.0 24 02/03/17 16:00 98.0 81 18 145/58 91 Nasal Cannula 2.0 02/03/17 12:00 98.2 87 18 165/89 94 Nasal Cannula 02/03/17 08:00 96.6 94 18 161/69 94 Nasal Cannula 2.0 02/03/17 04:00 97.6 74 18 130/56 96 Nasal Cannula 2.0 02/03/17 00:00 97.5 89 18 134/56 97 Nasal Cannula 2.0 Intake and Output 02/03/17 02/04/17 19:00 07:00 Intake Total 360 ml 60 ml Balance 360 ml 60 ml Intake Oral 360 ml IV Total 60 ml General Appearance: WD/WN HEENT: normocephalic, atraumatic Respiratory/Chest: chest wall non-tender, lungs clear Breasts: no masses Cardiovascular: normal peripheral pulses Abdomen: normal bowel sounds, soft, non tender Laboratory Tests 02/03/17 04:50: White Blood Count 7.4, Red Blood Count 3.17L, Hemoglobin 9.9L, Hematocrit 31.0L , Mean Corpuscular Volume 98, Mean Corpuscular Hemoglobin 31.3H, Mean Corpuscular Hemoglobin Concent 32.0, Red Cell Distribution Width 14.3, Platelet Count 166, Mean Platelet Volume 8.9, Neutrophils (%) (Auto) 71.7, Lymphocytes (% ) (Auto) 14.5L, Monocytes (%) (Auto) 12.0H, Eosinophils (%) (Auto) 1.0, Basophils (%) (Auto) 0.8, Sodium Level 137, Potassium Level 5.2H, Chloride Level 97L, Carbon Dioxide Level 26, Anion Gap 14, Blood Urea Nitrogen 57H, Creatinine 10.1H, Estimat Glomerular Filtration Rate 3.9, Glucose Level 206H, Calcium Level 10.7H, Phosphorus Level 4.1, Troponin I 0.036 Current Medications Medications (Trade) Dose Ordered Sig/Renée Route PRN Reason Start Time Stop Time Status Last Admin Dose Admin Acetaminophen (Tylenol) 650 mg Q4H PRN ORAL fever 01/31/17 07:15 03/02/17 07:14 Al Hydroxide/Mg Hydroxide (Mylanta II) 30 ml Q6H PRN ORAL dyspepsia 01/31/17 07:15 03/02/17 07:14 Albuterol/ Ipratropium (DuoNeb 0.5-3(2.5)mg/3ml) 3 ml Q6H PRN HHN dyspnea 01/31/17 07:15 02/05/17 07:14 Aspirin (ASA) 81 mg DAILY ORAL 01/31/17 15:00 03/02/17 14:59 02/03/17 09:15 Atorvastatin Calcium (Lipitor) 40 mg BEDTIME ORAL 02/03/17 21:00 03/05/17 20:59 02/03/17 20:25 Clonidine HCl (Catapres) 0.1 mg Q4H PRN ORAL For High Blood Pressure 01/31/17 07:15 03/02/17 07:14 Dextrose (Dextrose 50%) STAT PRN IV Hypoglycemia 01/31/17 07:15 03/02/17 07:14 Epoetin Elías (Procrit (for ESRD on dialysis)) 10,000 units TUE-WED-TUE SUBQ 02/02/17 21:00 03/04/17 20:59 02/02/17 22:26 Furosemide (Lasix) 100 mg Q8H PRN IV dyspnea 01/31/17 07:15 03/02/17 07:14 Heparin Sodium (Porcine) (Heparin 5000 units/ml) 5,000 units EVERY 12 HOURS SUBQ 01/31/17 21:00 03/02/17 20:59 02/03/17 20:37 Insulin Aspart (NovoLOG) BEFORE MEALS AND HS SUBQ 01/31/17 09:40 03/02/17 09:39 02/03/17 20:38 Iron Sucrose 100 mg/Sodium Chloride 60 ml @ 240 mls/hr BEDTIME IV 02/02/17 21:00 02/06/17 21:14 02/03/17 20:24 Morphine Sulfate (Morphine Sulfate) 4 mg Q4H PRN IVP PAIN 4-10 02/01/17 08:00 02/08/17 07:59 Ondansetron HCl (Zofran) 4 mg Q6H PRN IVP Nausea & Vomiting 01/31/17 07:15 03/02/17 07:14 02/03/17 09:27 Polyethylene Glycol (Miralax) 17 gm HSPRN PRN ORAL Constipation 01/31/17 07:15 03/02/17 07:14 Sevelamer Carbonate (Renvela) 800 mg THREE TIMES A DAY ORAL 01/31/17 15:00 03/02/17 14:59 02/03/17 18:35 Sitagliptin Phosphate (Januvia) 25 mg DAILY ORAL 01/31/17 15:00 03/02/17 14:59 02/03/17 09:15 Zolpidem Tartrate (Ambien) 5 mg HSPRN PRN ORAL Insomnia 01/31/17 07:15 02/07/17 07:14 MARINA PARRISH Feb 03, 2017 21:46
[2017-02-04] VITALS (9 sets, daily range): BP systolic 132–210; BP diastolic 54–103
[2017-02-04] MEDS: NovoLOG Insulin Flexpen SUBQ SCH ×4 (05:53→21:26)
[2017-02-04 07:01] LABS: BASOPHILS % (AUTO) 0.9 % (0.0-2.0); LYMPHOCYTES % (AUTO) 17.1 % (20.0-45.0); MEAN CORPUSCULAR HEMOGLOBIN 31.4 PG (27.0-31.0); MEAN CORPUSCULAR HGB CONC 31.9 G/DL (32.0-36.0); MEAN CORPUSCULAR VOLUME 98 FL (80-99); MEAN PLATELET VOLUME 9.1 FL (6.5-10.1); MONOCYTES % (AUTO) 9.6 % (1.0-10.0); NEUTROPHILS % (AUTO) 71.4 % (45.0-75.0); PLATELET COUNT 151 K/UL (150-450); RED BLOOD COUNT 3.18 M/UL (4.20-5.40); RED CELL DISTRIBUTION WIDTH 14.3 % (11.6-14.8); WHITE BLOOD COUNT 6.8 K/UL (4.8-10.8)
[2017-02-04 07:44] LABS: ANION GAP 17 mmol/L (5-15); CALCIUM 10.6 MG/DL (8.5-10.1); CARBON DIOXIDE 23 MMOL/L (21-32); CHLORIDE 95 MMOL/L (98-107); CREATININE 11.3 MG/DL (0.55-1.30); GLOMERULAR FILTRATION RATE 3.4 mL/min (>60); POTASSIUM 5.2 MMOL/L (3.5-5.1); SODIUM 135 MMOL/L (136-145)
--- NOTE | 2017-02-04 08:36 | Pulmonology Progress Note ---
Assessment/Plan Assessment/Plan ASSESSMENT Acute toxic metabolic encephalopathy-resolved Acute CHF exacerbation ESRD, on HD DM Morbid obesity Transient hypotension overuse of medicatons anemia of chronic renal disease hyperlipidemia hypercalcemia, possible hyperparathyroidism PLAN OF CARE MS floor CT head negative mental status back to baseline HD as per nephro monitor renal parameters, lytes diuresis , daily weights Monitor counts, continue EPO on Venofer anemia w/up noted Elevated Ca with elevated PTH- per nephro management BP stable, closely monitor BP, on low dose Nifedipine and Clonidine prn Cardio follows Initially minimally elevated troponin per cardio likely due to transient hypotension vs troponin leak repeated troponin - negative ECHO with pEF 60% No evidence of arrhythmia while in the hospital low BP was likely due to multiple anti HTN meds patient was taking Continue statin, ASA BS management with SS of insulin, [id number] nearly at goal pain management Bowel regimen DVT prophylaxis Cardio to outline BP meds that should be continued upon dc elevated PTH -per nephro management case discussed and evaluated by supervising physician Subjective Allergies: Coded Allergies: AZITHROMYCIN (Verified Allergy, Unknown, 01/30/17) POVIDONE-IODINE (Verified Allergy, Unknown, 01/30/17) Subjective hemodialysis in progress awake, responsive, weak on o2 via NC no signs of respiratory distress Objective Last 24 Hour Vital Signs Date Time Temp Pulse Resp B/P (MAP) Pulse Ox O2 Delivery O2 Flow Rate FiO2 02/04/17 08:14 89 210/103 02/04/17 08:13 210/103 02/04/17 08:00 98.1 88 19 210/103 97 Nasal Cannula 2.0 02/04/17 04:22 79 149/87 02/04/17 03:59 83 160/90 02/04/17 03:47 97.7 89 20 92 Room Air 89 02/03/17 23:48 97.7 92 20 131/37 91 Nasal Cannula 2.0 92 02/03/17 20:10 97.7 74 20 143/58 99 Nasal Cannula 2.0 74 02/03/17 19:51 88 18 Nasal Cannula 1.0 24 02/03/17 16:00 98.0 81 18 145/58 91 Nasal Cannula 2.0 02/03/17 12:00 98.2 87 18 165/89 94 Nasal Cannula General Appearance: no acute distress, other - obese female, awake, alert, responsive, weak HEENT: normocephalic, atraumatic, anicteric Respiratory/Chest: chest wall non-tender - with decreased BS , lungs clear, no accessory muscle use Cardiovascular: normal rate, regular rhythm, no JVD, other - LUE AV shunt Abdomen: normal bowel sounds, soft, non tender - obese Extremities: no edema, other Neurologic/Psychiatric: abnormal gait, alert, responsive Laboratory Tests 02/04/17 06:35: White Blood Count 6.8, Red Blood Count 3.18L, Hemoglobin 10.0L, Hematocrit 31.3L , Mean Corpuscular Volume 98, Mean Corpuscular Hemoglobin 31.4H, Mean Corpuscular Hemoglobin Concent 31.9L, Red Cell Distribution Width 14.3, Platelet Count 151, Mean Platelet Volume 9.1, Neutrophils (%) (Auto) 71.4, Lymphocytes (%) (Auto) 17.1L, Monocytes (%) (Auto) 9.6, Eosinophils (%) (Auto) 1.0, Basophils (%) (Auto) 0.9, Sodium Level 135L, Potassium Level 5.2H, Chloride Level 95L, Carbon Dioxide Level 23, Anion Gap 17H, Blood Urea Nitrogen 70H, Creatinine 11.3H, Estimat Glomerular Filtration Rate 3.4, Glucose Level 283H, Calcium Level 10.6H Current Medications Medications (Trade) Dose Ordered Sig/Renée Route PRN Reason Start Time Stop Time Status Last Admin Dose Admin Acetaminophen (Tylenol) 650 mg Q4H PRN ORAL fever 01/31/17 07:15 03/02/17 07:14 Al Hydroxide/Mg Hydroxide (Mylanta II) 30 ml Q6H PRN ORAL dyspepsia 01/31/17 07:15 03/02/17 07:14 Albuterol/ Ipratropium (DuoNeb 0.5-3(2.5)mg/3ml) 3 ml Q6H PRN HHN dyspnea 01/31/17 07:15 02/05/17 07:14 Aspirin (ASA) 81 mg DAILY ORAL 01/31/17 15:00 03/02/17 14:59 02/03/17 09:15 Atorvastatin Calcium (Lipitor) 40 mg BEDTIME ORAL 02/03/17 21:00 03/05/17 20:59 02/03/17 20:25 Clonidine HCl (Catapres) 0.1 mg Q4H PRN ORAL For High Blood Pressure 01/31/17 07:15 03/02/17 07:14 02/04/17 08:13 Dextrose (Dextrose 50%) STAT PRN IV Hypoglycemia 01/31/17 07:15 03/02/17 07:14 Epoetin Elías (Procrit (for ESRD on dialysis)) 10,000 units MON-WED-TUE SUBQ 02/02/17 21:00 03/04/17 20:59 02/02/17 22:26 Furosemide (Lasix) 100 mg Q8H PRN IV dyspnea 01/31/17 07:15 03/02/17 07:14 Heparin Sodium (Porcine) (Heparin 5000 units/ml) 5,000 units EVERY 12 HOURS SUBQ 01/31/17 21:00 03/02/17 20:59 02/03/17 20:37 Insulin Aspart (NovoLOG) BEFORE MEALS AND HS SUBQ 01/31/17 09:40 03/02/17 09:39 02/04/17 05:53 Iron Sucrose 100 mg/Sodium Chloride 60 ml @ 240 mls/hr BEDTIME IV 02/02/17 21:00 02/06/17 21:14 02/03/17 20:24 Morphine Sulfate (Morphine Sulfate) 4 mg Q4H PRN IVP PAIN 4-10 02/01/17 08:00 02/08/17 07:59 Nifedipine (Procardia XL) 30 mg DAILY ORAL 02/04/17 09:00 03/06/17 08:59 02/04/17 08:14 Ondansetron HCl (Zofran) 4 mg Q6H PRN IVP Nausea & Vomiting 01/31/17 07:15 03/02/17 07:14 02/03/17 09:27 Polyethylene Glycol (Miralax) 17 gm HSPRN PRN ORAL Constipation 01/31/17 07:15 03/02/17 07:14 Sevelamer Carbonate (Renvela) 800 mg THREE TIMES A DAY ORAL 01/31/17 15:00 03/02/17 14:59 02/03/17 18:35 Sitagliptin Phosphate (Januvia) 25 mg DAILY ORAL 01/31/17 15:00 03/02/17 14:59 02/03/17 09:15 Zolpidem Tartrate (Ambien) 5 mg HSPRN PRN ORAL Insomnia 01/31/17 07:15 02/07/17 07:14 Bret ([facility]),Tabitha ZIMMERMAN Feb 04, 2017 08:36
[2017-02-04] MEDS: Aspirin Baby 81mg ORAL SCH (09:13)
[2017-02-04] MEDS: sitaGLIPtin 25mg tab ORAL SCH (09:13)
[2017-02-04] MEDS: Heparin 5000 units/ml inj SUBQ SCH ×2 (09:22→21:26)
--- NOTE | 2017-02-04 11:36 | Nephrology Progress Note ---
Assessment/Plan Assessment 1. End-stage coronary disease. 2. Anemia of chronic kidney disease. 3. Hypokalemia. 4. Hypotension. 5. Altered mental status. Plan plan restart bp med uf as tolerated repeat dialysis today daily wt continue Epogen Subjective Constitutional: Reports: no symptoms HEENT: Reports: no symptoms Genitourinary: Reports: no symptoms Subjective alert and awake denies any CP or SOB on hemodialysis found to have bp 200 before hemodialysis Objective Objective Last 24 Hour Vital Signs Date Time Temp Pulse Resp B/P (MAP) Pulse Ox O2 Delivery O2 Flow Rate FiO2 02/04/17 08:45 Room Air 2.0 24 02/04/17 08:14 89 210/103 02/04/17 08:13 210/103 02/04/17 08:00 98.1 88 19 210/103 97 Nasal Cannula 2.0 02/04/17 04:22 79 149/87 02/04/17 03:59 83 160/90 02/04/17 03:47 97.7 89 20 92 Room Air 89 02/03/17 23:48 97.7 92 20 131/37 91 Nasal Cannula 2.0 92 02/03/17 20:10 97.7 74 20 143/58 99 Nasal Cannula 2.0 74 02/03/17 19:51 88 18 Nasal Cannula 1.0 24 02/03/17 16:00 98.0 81 18 145/58 91 Nasal Cannula 2.0 02/03/17 12:00 98.2 87 18 165/89 94 Nasal Cannula Laboratory Tests 02/04/17 06:35: White Blood Count 6.8, Red Blood Count 3.18L, Hemoglobin 10.0L, Hematocrit 31.3L , Mean Corpuscular Volume 98, Mean Corpuscular Hemoglobin 31.4H, Mean Corpuscular Hemoglobin Concent 31.9L, Red Cell Distribution Width 14.3, Platelet Count 151, Mean Platelet Volume 9.1, Neutrophils (%) (Auto) 71.4, Lymphocytes (%) (Auto) 17.1L, Monocytes (%) (Auto) 9.6, Eosinophils (%) (Auto) 1.0, Basophils (%) (Auto) 0.9, Sodium Level 135L, Potassium Level 5.2H, Chloride Level 95L, Carbon Dioxide Level 23, Anion Gap 17H, Blood Urea Nitrogen 70H, Creatinine 11.3H, Estimat Glomerular Filtration Rate 3.4, Glucose Level 283H, Calcium Level 10.6H Height (Feet): 5 Height (Inches): 6.00 Weight (Pounds): 249 Objective HEAD AND NECK: No JVP. No LAD. Extraocular movements intact. Pupils are reactive to light and accommodation. LUNGS: Decreased breathing sounds. CARDIAC: Regular rate and rhythm. S1, S2. No murmur. No rub. ABDOMEN: Obese, nontender, and nondistended. EXTREMITIES: She has 1+ edema. No clubbing. No cyanosis. NEUROLOGIC: Cranial nerves II though XII within normal limits. Upper and lower extremities are grossly intact. IKER GARCIA Feb 04, 2017 11:36
--- NOTE | 2017-02-04 13:15 | General Progress Note ---
Assessment/Plan Problem List: (1) Acute exacerbation of CHF (congestive heart failure) ICD Codes: I50.9 - Heart failure, unspecified SNOMED: 32278934, 002302864 Qualifiers: Qualified Codes: I50.9 - Heart failure, unspecified (2) Morbid obesity with BMI of 40.0-44.9, adult ICD Codes: E66.01 - Morbid (severe) obesity due to excess calories; Z68.41 - Body mass index (BMI) 40.0-44.9, adult SNOMED: 650737331, 761896894 (3) Diabetes mellitus ICD Codes: E11.9 - Type 2 diabetes mellitus without complications SNOMED: 03532200 (4) ESRD (end stage renal disease) ICD Codes: N18.6 - End stage renal disease SNOMED: 77716219 (5) HTN (hypertension) ICD Codes: I10 - Essential (primary) hypertension SNOMED: 59149472 (6) Encephalopathy acute ICD Codes: G93.40 - Encephalopathy, unspecified; Z68.41 - Body mass index (BMI ) 40.0-44.9, adult SNOMED: 4839313, 475329671 Status: stable, progressing, tolerating diet Assessment/Plan ot pt diet dialysis o2 pulm tx cbc bmp am dc plan w hh Subjective Constitutional: Reports: weakness Allergies: Coded Allergies: AZITHROMYCIN (Verified Allergy, Unknown, 01/30/17) POVIDONE-IODINE (Verified Allergy, Unknown, 01/30/17) SOAP (Verified Allergy, Unknown, 01/30/17) All Systems: reviewed and negative except above Subjective o2nc calm Objective Last 24 Hour Vital Signs Date Time Temp Pulse Resp B/P (MAP) Pulse Ox O2 Delivery O2 Flow Rate FiO2 02/04/17 12:00 97.7 82 18 161/55 90 Nasal Cannula 2.0 02/04/17 10:24 88 18 Room Air 21 02/04/17 08:45 Room Air 2.0 24 02/04/17 08:14 89 210/103 02/04/17 08:13 210/103 02/04/17 08:00 98.1 88 19 210/103 97 Nasal Cannula 2.0 02/04/17 04:22 79 149/87 02/04/17 03:59 83 160/90 02/04/17 03:47 97.7 89 20 92 Room Air 89 02/03/17 23:48 97.7 92 20 131/37 91 Nasal Cannula 2.0 92 02/03/17 20:10 97.7 74 20 143/58 99 Nasal Cannula 2.0 74 02/03/17 19:51 88 18 Nasal Cannula 1.0 24 02/03/17 16:00 98.0 81 18 145/58 91 Nasal Cannula 2.0 Laboratory Tests 02/04/17 06:35: White Blood Count 6.8, Red Blood Count 3.18L, Hemoglobin 10.0L, Hematocrit 31.3L , Mean Corpuscular Volume 98, Mean Corpuscular Hemoglobin 31.4H, Mean Corpuscular Hemoglobin Concent 31.9L, Red Cell Distribution Width 14.3, Platelet Count 151, Mean Platelet Volume 9.1, Neutrophils (%) (Auto) 71.4, Lymphocytes (%) (Auto) 17.1L, Monocytes (%) (Auto) 9.6, Eosinophils (%) (Auto) 1.0, Basophils (%) (Auto) 0.9, Sodium Level 135L, Potassium Level 5.2H, Chloride Level 95L, Carbon Dioxide Level 23, Anion Gap 17H, Blood Urea Nitrogen 70H, Creatinine 11.3H, Estimat Glomerular Filtration Rate 3.4, Glucose Level 283H, Calcium Level 10.6H Height (Feet): 5 Height (Inches): 6.00 Weight (Pounds): 249 General Appearance: alert EENT: normal ENT inspection Neck: normal alignment Cardiovascular: normal peripheral pulses, normal rate, regular rhythm Respiratory/Chest: chest wall non-tender, lungs clear, normal breath sounds Abdomen: normal bowel sounds, non tender, soft Extremities: normal inspection Edema: no edema noted Arm (L), no edema noted Arm (R), no edema noted Leg (L), no edema noted Leg (R), no edema noted Pedal (L), no edema noted Pedal (R), no edema noted Generalized Neurologic: responsive, motor weakness Skin: normal pigmentation, warm/dry YOLIS REGAN Feb 04, 2017 13:15
[2017-02-04] MEDS: Iron Sucrose 100 MG in NS 55 ML IV SCH (21:00)
[2017-02-04] MEDS: Epogen (for ESRD on dialysis) SUBQ SCH (21:27)
[2017-02-04] MEDS ORDERED: Tubing IV Secondary IV ONE (21:48)
[2017-02-04] MEDS ORDERED: NS 500ML IV ONE (21:48)
--- NOTE | 2017-02-04 23:49 | Cardiology Progress Note ---
Assessment/Plan Assessment/Plan 1. Accelerated hypertension, increase dose of Nifedipine, resume carvedilol, clonidine for breakthrough HTN, Echo reveals normal LV systolic function with LVEF at 60%. 2. History of diabetes mellitus. 3. Dyslipidemia, continue atorvastatin 40 mg. 4. Slight elevation of troponin in this patient could be because of transient hypotension versus trop leak due to ESRD. Second trop was negative. Subjective Subjective Sinus rhythm at 87. No cardiac events. Objective Last 24 Hour Vital Signs Date Time Temp Pulse Resp B/P (MAP) Pulse Ox O2 Delivery O2 Flow Rate FiO2 02/04/17 22:38 97.8 02/04/17 20:39 Nasal Cannula 2.0 28 02/04/17 20:38 93 Nasal Cannula 2.0 28 02/04/17 20:13 93 18 Nasal Cannula 2.0 28 02/04/17 20:11 97.8 88 19 160/54 98 Nasal Cannula 88 02/04/17 16:00 97.0 87 19 164/88 93 Nasal Cannula 2.0 02/04/17 12:00 97.7 82 18 161/55 90 Nasal Cannula 2.0 02/04/17 10:24 88 18 Room Air 21 02/04/17 09:15 95.3 88 20 151/63 98 Nasal Cannula 2.0 02/04/17 08:45 Room Air 2.0 24 02/04/17 08:14 89 210/103 02/04/17 08:13 210/103 02/04/17 08:00 98.1 88 19 210/103 97 Nasal Cannula 2.0 02/04/17 04:22 79 149/87 02/04/17 03:59 83 160/90 02/04/17 03:47 97.7 89 20 92 Room Air 89 Intake and Output 02/04/17 02/05/17 19:00 07:00 Intake Total 480 ml Balance 480 ml Intake Oral 480 ml 2D Echo: LVEF 60-65%, CRISTELA, RVSP 43 mmHg, Grade I LVDD, Mild NE Laboratory Tests Test 02/04/17 06:35 White Blood Count 6.8 K/UL (4.8-10.8) Red Blood Count 3.18 M/UL (4.20-5.40) L Hemoglobin 10.0 G/DL (12.0-16.0) L Hematocrit 31.3 % (37.0-47.0) L Mean Corpuscular Volume 98 FL (80-99) Mean Corpuscular Hemoglobin 31.4 PG (27.0-31.0) H Mean Corpuscular Hemoglobin Concent 31.9 G/DL (32.0-36.0) L Red Cell Distribution Width 14.3 % (11.6-14.8) Platelet Count 151 K/UL (150-450) Mean Platelet Volume 9.1 FL (6.5-10.1) Neutrophils (%) (Auto) 71.4 % (45.0-75.0) Lymphocytes (%) (Auto) 17.1 % (20.0-45.0) L Monocytes (%) (Auto) 9.6 % (1.0-10.0) Eosinophils (%) (Auto) 1.0 % (0.0-3.0) Basophils (%) (Auto) 0.9 % (0.0-2.0) Sodium Level 135 MMOL/L (136-145) L Potassium Level 5.2 MMOL/L (3.5-5.1) H Chloride Level 95 MMOL/L (98-107) L Carbon Dioxide Level 23 MMOL/L (21-32) Anion Gap 17 mmol/L (5-15) H Blood Urea Nitrogen 70 mg/dL (7-18) H Creatinine 11.3 MG/DL (0.55-1.30) H Estimat Glomerular Filtration Rate 3.4 mL/min (>60) Glucose Level 283 MG/DL (74-106) H Calcium Level 10.6 MG/DL (8.5-10.1) H Objective HEENT: Atraumatic and normocephalic. Anicteric. Pupils are equal, round, and reactive to light and accommodation. Conjunctival pallor is present. NECK: JVP less than 5 cm. No carotid bruit. Carotid upstrokes 2+ bilaterally. CARDIOVASCULAR: Normal S1 and S2. Regular rate and rhythm. No murmurs, gallops or rubs. There is some irregularity of the pulse with 2/6 midsystolic murmur at the left sternal border. PMI is at fourth intercostal space in the midclavicular line. LUNGS: Clear to auscultation bilaterally. ABDOMEN: Distended due to obesity. Cannot assess hepatosplenomegaly due to obesity. Positive bowel sounds. Soft and nontender. EXTREMITIES: There is 1+ bilateral edema. JOSE ALBERTO WONG Feb 04, 2017 23:49
[2017-02-05] VITALS (8 sets, daily range): BP systolic 147–231; BP diastolic 56–107
[2017-02-05] MEDS: NovoLOG Insulin Flexpen SUBQ SCH ×4 (07:03→22:46)
[2017-02-05 08:03] LABS: EOSINOPHILS % (AUTO) 3.2 % (0.0-3.0); LYMPHOCYTES % (AUTO) 15.2 % (20.0-45.0); MEAN CORPUSCULAR HGB CONC 31.5 G/DL (32.0-36.0); MEAN CORPUSCULAR VOLUME 98 FL (80-99); MEAN PLATELET VOLUME 10.1 FL (6.5-10.1); NEUTROPHILS % (AUTO) 71.6 % (45.0-75.0); PLATELET COUNT 134 K/UL (150-450); RED BLOOD COUNT 3.14 M/UL (4.20-5.40); WHITE BLOOD COUNT 6.8 K/UL (4.8-10.8)
--- NOTE | 2017-02-05 08:25 | Pulmonology Progress Note ---
Assessment/Plan Assessment/Plan ASSESSMENT Acute toxic metabolic encephalopathy-resolved Acute CHF exacerbation ESRD, on HD DM Morbid obesity Transient hypotension overuse of medications mild pulmonary HTn anemia of chronic renal disease hyperlipidemia hypercalcemia possible hyperparathyroidism PLAN OF CARE MS floor CT head negative mental status back to baseline HD as per nephro monitor renal parameters, lytes diuresis , daily weights Monitor counts, continue EPO on Venofer anemia w/up noted Elevated Ca with elevated PTH- per nephro management BP elevated closely monitor BP, on low dose Nifedipine and Clonidine prn Cardio follows Initially minimally elevated troponin per cardio likely due to transient hypotension vs troponin leak repeated troponin - negative ECHO with pEF 60% and evidence of pulmonary HTN No evidence of arrhythmia while in the hospital low BP was likely due to multiple anti HTN meds patient was taking Continue statin, ASA BS management with SS of insulin, [id number]-6.4 nearly at goal pain management Bowel regimen DVT prophylaxis elevated PTH -per nephro management discussed with Cardio anti HTN medications : currently on CCB, added BB and Hydralazine and will be titrated slowly dc plan home with HH pe PMD discussed in length with , patient is barely walking, her condition deteriorated at recent time will benefit from HH for BP management and PT/OT case discussed and evaluated by supervising physician Subjective Allergies: Coded Allergies: AZITHROMYCIN (Verified Allergy, Unknown, 01/30/17) POVIDONE-IODINE (Verified Allergy, Unknown, 01/30/17) Subjective hemodialysis done 02/04 awake, responsive, weak on O2 via NC no signs of respiratory distress BP elevated Objective Last 24 Hour Vital Signs Date Time Temp Pulse Resp B/P (MAP) Pulse Ox O2 Delivery O2 Flow Rate FiO2 02/05/17 05:30 169/82 02/05/17 04:23 97.1 81 20 197/75 97 Nasal Cannula 2.0 02/05/17 04:21 197/75 02/04/17 23:50 97.6 85 19 138/84 98 Nasal Cannula 85 02/04/17 22:38 97.8 02/04/17 20:39 Nasal Cannula 2.0 28 02/04/17 20:38 93 Nasal Cannula 2.0 28 02/04/17 20:13 93 18 Nasal Cannula 2.0 28 02/04/17 20:11 97.8 88 19 160/54 98 Nasal Cannula 88 02/04/17 16:00 97.0 87 19 164/88 93 Nasal Cannula 2.0 02/04/17 12:00 97.7 82 18 161/55 90 Nasal Cannula 2.0 02/04/17 10:24 88 18 Room Air 21 02/04/17 09:15 95.3 88 20 151/63 98 Nasal Cannula 2.0 02/04/17 08:45 Room Air 2.0 24 Objective General Appearance: no acute distress, other - obese female, awake, alert, responsive, weak HEENT: normocephalic, atraumatic, anicteric Respiratory/Chest: chest wall non-tender - with decreased BS , lungs clear, no accessory muscle use Cardiovascular: normal rate, regular rhythm, no JVD, LUE AV shunt Abdomen: normal bowel sounds, soft, non tender - obese Extremities: no edema, other Neurologic/Psychiatric: abnormal gait, alert, responsive Laboratory Tests 02/05/17 05:50: White Blood Count 6.8, Red Blood Count 3.14L, Hemoglobin 9.7L, Hematocrit 30.9L , Mean Corpuscular Volume 98, Mean Corpuscular Hemoglobin 31.0, Mean Corpuscular Hemoglobin Concent 31.5L, Red Cell Distribution Width 14.0, Platelet Count 134L, Mean Platelet Volume 10.1, Neutrophils (%) (Auto) 71.6, Lymphocytes (%) (Auto) 15.2L, Monocytes (%) (Auto) 9.0, Eosinophils (%) (Auto) 3.2H, Basophils (%) (Auto) 1.0, Sodium Level [Pending], Potassium Level [Pending ], Chloride Level [Pending], Carbon Dioxide Level [Pending], Blood Urea Nitrogen [Pending], Creatinine [Pending], Estimat Glomerular Filtration Rate [ Pending], Glucose Level [Pending], Calcium Level [Pending] Current Medications Medications (Trade) Dose Ordered Sig/Renée Route PRN Reason Start Time Stop Time Status Last Admin Dose Admin Acetaminophen (Tylenol) 650 mg Q4H PRN ORAL fever 01/31/17 07:15 03/02/17 07:14 02/04/17 21:39 Al Hydroxide/Mg Hydroxide (Mylanta II) 30 ml Q6H PRN ORAL dyspepsia 01/31/17 07:15 03/02/17 07:14 Aspirin (ASA) 81 mg DAILY ORAL 01/31/17 15:00 03/02/17 14:59 02/04/17 09:13 Atorvastatin Calcium (Lipitor) 40 mg BEDTIME ORAL 02/03/17 21:00 03/05/17 20:59 02/04/17 21:27 Clonidine HCl (Catapres) 0.1 mg Q4H PRN ORAL For High Blood Pressure 01/31/17 07:15 03/02/17 07:14 02/05/17 04:21 Dextrose (Dextrose 50%) STAT PRN IV Hypoglycemia 01/31/17 07:15 03/02/17 07:14 Epoetin Elías (Procrit (for ESRD on dialysis)) 10,000 units TUE-TUE-TUE SUBQ 02/02/17 21:00 03/04/17 20:59 02/04/17 21:27 Furosemide (Lasix) 100 mg Q8H PRN IV dyspnea 01/31/17 07:15 03/02/17 07:14 Heparin Sodium (Porcine) (Heparin 5000 units/ml) 5,000 units EVERY 12 HOURS SUBQ 01/31/17 21:00 03/02/17 20:59 02/04/17 21:26 Insulin Aspart (NovoLOG) BEFORE MEALS AND HS SUBQ 01/31/17 09:40 03/02/17 09:39 02/05/17 07:03 Iron Sucrose 100 mg/Sodium Chloride 60 ml @ 240 mls/hr BEDTIME IV 02/02/17 21:00 02/06/17 21:14 02/04/17 21:00 Morphine Sulfate (Morphine Sulfate) 4 mg Q4H PRN IVP PAIN 4-10 02/01/17 08:00 02/08/17 07:59 Nifedipine (Procardia XL) 30 mg DAILY ORAL 02/04/17 09:00 03/06/17 08:59 02/04/17 08:14 Ondansetron HCl (Zofran) 4 mg Q6H PRN IVP Nausea & Vomiting 01/31/17 07:15 03/02/17 07:14 02/03/17 09:27 Polyethylene Glycol (Miralax) 17 gm HSPRN PRN ORAL Constipation 01/31/17 07:15 03/02/17 07:14 Sevelamer Carbonate (Renvela) 800 mg THREE TIMES A DAY ORAL 01/31/17 15:00 03/02/17 14:59 02/04/17 18:27 Sitagliptin Phosphate (Januvia) 25 mg DAILY ORAL 01/31/17 15:00 03/02/17 14:59 02/04/17 09:13 Zolpidem Tartrate (Ambien) 5 mg HSPRN PRN ORAL Insomnia 01/31/17 07:15 02/07/17 07:14 Bret ([facility])Tabitha NP Feb 05, 2017 08:25
[2017-02-05] MEDS: Heparin 5000 units/ml inj SUBQ SCH ×2 (08:30→21:55)
[2017-02-05] MEDS: sitaGLIPtin 25mg tab ORAL SCH (08:30)
[2017-02-05] MEDS: Aspirin Baby 81mg ORAL SCH (08:31)
[2017-02-05 09:19] LABS: ANION GAP 14 mmol/L (5-15); CALCIUM 10.9 MG/DL (8.5-10.1); CARBON DIOXIDE 28 MMOL/L (21-32); CHLORIDE 97 MMOL/L (98-107); CREATININE 10.3 MG/DL (0.55-1.30); GLOMERULAR FILTRATION RATE 3.8 mL/min (>60); POTASSIUM 5.3 MMOL/L (3.5-5.1); SODIUM 139 MMOL/L (136-145)
--- NOTE | 2017-02-05 11:38 | General Progress Note ---
Assessment/Plan Problem List: (1) Acute exacerbation of CHF (congestive heart failure) ICD Codes: I50.9 - Heart failure, unspecified SNOMED: 05951038, 546738487 Qualifiers: Qualified Codes: I50.9 - Heart failure, unspecified (2) Morbid obesity with BMI of 40.0-44.9, adult ICD Codes: E66.01 - Morbid (severe) obesity due to excess calories; Z68.41 - Body mass index (BMI) 40.0-44.9, adult SNOMED: 250004349, 958590236 (3) Diabetes mellitus ICD Codes: E11.9 - Type 2 diabetes mellitus without complications SNOMED: 59217861 (4) ESRD (end stage renal disease) ICD Codes: N18.6 - End stage renal disease SNOMED: 95367491 (5) HTN (hypertension) ICD Codes: I10 - Essential (primary) hypertension SNOMED: 01301225 (6) Encephalopathy acute ICD Codes: G93.40 - Encephalopathy, unspecified; Z68.41 - Body mass index (BMI ) 40.0-44.9, adult SNOMED: 4653589, 346262304 Status: stable, progressing, tolerating diet Assessment/Plan ot pt diet dialysis o2 pulm tx cbc bmp am dc plan w hh Subjective Constitutional: Reports: weakness Allergies: Coded Allergies: AZITHROMYCIN (Verified Allergy, Unknown, 01/30/17) POVIDONE-IODINE (Verified Allergy, Unknown, 01/30/17) SOAP (Verified Allergy, Unknown, 01/30/17) All Systems: reviewed and negative except above Subjective o2nc calm Objective Last 24 Hour Vital Signs Date Time Temp Pulse Resp B/P (MAP) Pulse Ox O2 Delivery O2 Flow Rate FiO2 02/05/17 10:43 Room Air 21 02/05/17 10:00 97.0 90 19 150/62 97 Room Air 02/05/17 09:29 98.0 90 19 147/56 97 Room Air 02/05/17 08:31 95 Room Air 21 02/05/17 08:30 79 231/105 02/05/17 08:30 231/105 02/05/17 08:00 97.7 79 20 231/107 96 Room Air 02/05/17 05:30 169/82 02/05/17 04:23 97.1 81 20 197/75 97 Nasal Cannula 2.0 02/05/17 04:21 197/75 02/04/17 23:50 97.6 85 19 138/84 98 Nasal Cannula 85 02/04/17 22:38 97.8 02/04/17 20:39 Nasal Cannula 2.0 28 02/04/17 20:38 93 Nasal Cannula 2.0 28 02/04/17 20:13 93 18 Nasal Cannula 2.0 28 02/04/17 20:11 97.8 88 19 160/54 98 Nasal Cannula 88 02/04/17 16:00 97.0 87 19 164/88 93 Nasal Cannula 2.0 02/04/17 12:00 97.7 82 18 161/55 90 Nasal Cannula 2.0 Laboratory Tests 02/05/17 05:50: White Blood Count 6.8, Red Blood Count 3.14L, Hemoglobin 9.7L, Hematocrit 30.9L , Mean Corpuscular Volume 98, Mean Corpuscular Hemoglobin 31.0, Mean Corpuscular Hemoglobin Concent 31.5L, Red Cell Distribution Width 14.0, Platelet Count 134L, Mean Platelet Volume 10.1, Neutrophils (%) (Auto) 71.6, Lymphocytes (%) (Auto) 15.2L, Monocytes (%) (Auto) 9.0, Eosinophils (%) (Auto) 3.2H, Basophils (%) (Auto) 1.0, Sodium Level 139, Potassium Level 5.3H, Chloride Level 97L, Carbon Dioxide Level 28, Anion Gap 14, Blood Urea Nitrogen 62H, Creatinine 10.3H, Estimat Glomerular Filtration Rate 3.8, Glucose Level 271H, Calcium Level 10.9H Height (Feet): 5 Height (Inches): 6.00 Weight (Pounds): 250 General Appearance: lethargic EENT: normal ENT inspection Neck: normal alignment Cardiovascular: normal peripheral pulses, normal rate, regular rhythm Respiratory/Chest: chest wall non-tender, lungs clear, decreased breath sounds Abdomen: normal bowel sounds, non tender, soft Extremities: normal inspection Edema: no edema noted Arm (L), no edema noted Arm (R), no edema noted Leg (L), no edema noted Leg (R), no edema noted Pedal (L), no edema noted Pedal (R), no edema noted Generalized Neurologic: motor weakness Skin: normal pigmentation, warm/dry YOLIS REGAN Feb 05, 2017 11:38
[2017-02-05] MEDS ORDERED: Morphine Sulfate 4mg/ml Inj IVP PRN (12:00)
[2017-02-05] MEDS ORDERED: HydrALAZINE 25mg tab ORAL SCH (12:00)
[2017-02-05] MEDS: HydrALAZINE 25mg tab ORAL SCH ×2 (12:40→17:06)
[2017-02-05] MEDS ORDERED: Mylanta II UD 30ml ORAL PRN (14:00)
[2017-02-05] MEDS ORDERED: Magnesium Citrate Liq Btl ORAL PRN (18:45)
--- NOTE | 2017-02-05 20:35 | Nephrology Progress Note ---
Assessment/Plan Assessment 1. End-stage coronary disease. 2. Anemia of chronic kidney disease. 3. Hypokalemia. 4. Hypotension. 5. Altered mental status. Plan plan restart bp med uf as tolerated in am repeat dialysis in am daily wt continue Epogen Subjective Constitutional: Reports: no symptoms HEENT: Reports: no symptoms Genitourinary: Reports: no symptoms Neurologic/Psychiatric: Reports: no symptoms Subjective was transferred to monitor bed for elevated bp found to have bp 200 Objective Objective Last 24 Hour Vital Signs Date Time Temp Pulse Resp B/P (MAP) Pulse Ox O2 Delivery O2 Flow Rate FiO2 02/05/17 20:00 97.7 76 40 152/74 99 Room Air 2.0 21 02/05/17 17:06 157/70 02/05/17 16:00 78 02/05/17 16:00 97.7 76 18 157/70 99 Room Air 02/05/17 12:40 150/62 02/05/17 12:40 80 150/62 02/05/17 12:00 97.9 80 18 158/69 97 Room Air 02/05/17 12:00 80 02/05/17 10:43 Room Air 21 02/05/17 10:00 97.0 90 19 150/62 97 Room Air 02/05/17 09:29 98.0 90 19 147/56 97 Room Air 02/05/17 08:31 95 Room Air 21 02/05/17 08:30 79 231/105 02/05/17 08:30 231/105 02/05/17 08:00 97.7 79 20 231/107 96 Room Air 02/05/17 08:00 84 02/05/17 05:30 169/82 02/05/17 04:23 97.1 81 20 197/75 97 Nasal Cannula 2.0 02/05/17 04:21 197/75 02/04/17 23:50 97.6 85 19 138/84 98 Nasal Cannula 85 02/04/17 22:38 97.8 02/04/17 20:39 Nasal Cannula 2.0 28 02/04/17 20:38 93 Nasal Cannula 2.0 28 Intake and Output 02/05/17 02/06/17 19:00 07:00 Intake Total 280 ml Balance 280 ml Intake Oral 280 ml Laboratory Tests 02/05/17 05:50: White Blood Count 6.8, Red Blood Count 3.14L, Hemoglobin 9.7L, Hematocrit 30.9L , Mean Corpuscular Volume 98, Mean Corpuscular Hemoglobin 31.0, Mean Corpuscular Hemoglobin Concent 31.5L, Red Cell Distribution Width 14.0, Platelet Count 134L, Mean Platelet Volume 10.1, Neutrophils (%) (Auto) 71.6, Lymphocytes (%) (Auto) 15.2L, Monocytes (%) (Auto) 9.0, Eosinophils (%) (Auto) 3.2H, Basophils (%) (Auto) 1.0, Sodium Level 139, Potassium Level 5.3H, Chloride Level 97L, Carbon Dioxide Level 28, Anion Gap 14, Blood Urea Nitrogen 62H, Creatinine 10.3H, Estimat Glomerular Filtration Rate 3.8, Glucose Level 271H, Calcium Level 10.9H Height (Feet): 5 Height (Inches): 6.00 Weight (Pounds): 250 Objective HEAD AND NECK: No JVP. No LAD. Extraocular movements intact. Pupils are reactive to light and accommodation. LUNGS: Decreased breathing sounds. CARDIAC: Regular rate and rhythm. S1, S2. No murmur. No rub. ABDOMEN: Obese, nontender, and nondistended. EXTREMITIES: She has 1+ edema. No clubbing. No cyanosis. NEUROLOGIC: Cranial nerves II though XII within normal limits. Upper and lower extremities are grossly intact. IKER GARCIA Feb 05, 2017 20:35
[2017-02-05] MEDS ORDERED: Zolpidem 5mg tab ORAL PRN (21:00)
[2017-02-05] MEDS: Iron Sucrose 100 MG in NS 55 ML IV SCH (21:55)
[2017-02-06] VITALS (7 sets, daily range): BP systolic 161–192; BP diastolic 63–103
[2017-02-06] MEDS: HydrALAZINE 25mg tab ORAL SCH ×4 (00:51→18:17)
[2017-02-06] MEDS: NovoLOG Insulin Flexpen SUBQ SCH ×4 (05:24→22:40)
[2017-02-06] MEDS: sitaGLIPtin 25mg tab ORAL SCH (08:51)
[2017-02-06] MEDS: Aspirin Baby 81mg ORAL SCH (08:52)
[2017-02-06] MEDS: Heparin 5000 units/ml inj SUBQ SCH ×2 (09:00→21:00)
[2017-02-06] MEDS ORDERED: NS 275ml ONE (09:40)
[2017-02-06] MEDS ORDERED: Tubing IV Secondary IV ONE (09:40)
--- NOTE | 2017-02-06 09:56 | General Progress Note ---
Assessment/Plan Problem List: (1) Acute exacerbation of CHF (congestive heart failure) ICD Codes: I50.9 - Heart failure, unspecified SNOMED: 97248149, 491914027 Qualifiers: Qualified Codes: I50.9 - Heart failure, unspecified (2) Morbid obesity with BMI of 40.0-44.9, adult ICD Codes: E66.01 - Morbid (severe) obesity due to excess calories; Z68.41 - Body mass index (BMI) 40.0-44.9, adult SNOMED: 542740998, 373492973 (3) Diabetes mellitus ICD Codes: E11.9 - Type 2 diabetes mellitus without complications SNOMED: 11563092 (4) ESRD (end stage renal disease) ICD Codes: N18.6 - End stage renal disease SNOMED: 89106435 (5) HTN (hypertension) ICD Codes: I10 - Essential (primary) hypertension SNOMED: 71586192 (6) Encephalopathy acute ICD Codes: G93.40 - Encephalopathy, unspecified; Z68.41 - Body mass index (BMI ) 40.0-44.9, adult SNOMED: 4475723, 085184170 Status: stable, progressing, tolerating diet Assessment/Plan ot pt diet dialysis o2 pulm tx cbc bmp am dc w hh Subjective Constitutional: Reports: weakness Allergies: Coded Allergies: AZITHROMYCIN (Verified Allergy, Unknown, 01/30/17) POVIDONE-IODINE (Verified Allergy, Unknown, 01/30/17) SOAP (Verified Allergy, Unknown, 01/30/17) All Systems: reviewed and negative except above Subjective o2nc calm Objective Last 24 Hour Vital Signs Date Time Temp Pulse Resp B/P (MAP) Pulse Ox O2 Delivery O2 Flow Rate FiO2 02/06/17 08:52 73 192/103 02/06/17 08:51 73 192/103 02/06/17 08:18 97.9 73 20 192/103 98 Nasal Cannula 2.0 02/06/17 07:53 Nasal Cannula 1.5 02/06/17 07:52 100 Nasal Cannula 1.5 02/06/17 05:19 171/76 02/06/17 04:04 176/92 02/06/17 04:00 83 02/06/17 04:00 97.5 74 40 171/92 96 Room Air 2.0 21 76 02/06/17 00:51 161/71 02/06/17 00:00 77 02/06/17 00:00 97.7 75 40 161/71 96 Room Air 2.0 21 02/05/17 21:55 76 152/74 02/05/17 20:38 96 Room Air 21 02/05/17 20:37 Room Air 21 02/05/17 20:00 80 02/05/17 20:00 97.7 76 40 152/74 99 Room Air 2.0 21 02/05/17 17:06 157/70 02/05/17 16:00 78 02/05/17 16:00 97.7 76 18 157/70 99 Room Air 02/05/17 12:40 150/62 02/05/17 12:40 80 150/62 02/05/17 12:00 97.9 80 18 158/69 97 Room Air 02/05/17 12:00 80 02/05/17 10:43 Room Air 21 02/05/17 10:00 97.0 90 19 150/62 97 Room Air Height (Feet): 5 Height (Inches): 6.00 Weight (Pounds): 250 General Appearance: lethargic EENT: normal ENT inspection Neck: normal alignment Cardiovascular: normal peripheral pulses, normal rate, regular rhythm Respiratory/Chest: chest wall non-tender, lungs clear, decreased breath sounds Extremities: normal inspection Edema: no edema noted Arm (L), no edema noted Arm (R), no edema noted Leg (L), no edema noted Leg (R), no edema noted Pedal (L), no edema noted Pedal (R), no edema noted Generalized Neurologic: responsive, motor weakness Skin: normal pigmentation, warm/dry YOLIS REGAN Feb 06, 2017 09:56
--- NOTE | 2017-02-06 11:20 | Nephrology Progress Note ---
Assessment/Plan Assessment 1. End-stage coronary disease. 2. Anemia of chronic kidney disease. 3. Hyperkalemia 4. hypercalcemia 5. Altered mental status. Plan plan start on Sensipar adjust bp meds uf as tolerated in am repeat dialysis in am daily wt continue Epogen Subjective Constitutional: Reports: malaise, weakness HEENT: Reports: no symptoms Genitourinary: Reports: no symptoms Neurologic/Psychiatric: Reports: no symptoms Subjective c/o decrease appetite and weakness her in her bedside Objective Objective Last 24 Hour Vital Signs Date Time Temp Pulse Resp B/P (MAP) Pulse Ox O2 Delivery O2 Flow Rate FiO2 02/06/17 08:52 73 192/103 02/06/17 08:51 73 192/103 02/06/17 08:18 97.9 73 20 192/103 98 Nasal Cannula 2.0 02/06/17 07:53 Nasal Cannula 1.5 02/06/17 07:52 100 Nasal Cannula 1.5 02/06/17 05:19 171/76 02/06/17 04:04 176/92 02/06/17 04:00 83 02/06/17 04:00 97.5 74 40 171/92 96 Room Air 2.0 21 76 02/06/17 00:51 161/71 02/06/17 00:00 77 02/06/17 00:00 97.7 75 40 161/71 96 Room Air 2.0 21 02/05/17 21:55 76 152/74 02/05/17 20:38 96 Room Air 21 02/05/17 20:37 Room Air 21 02/05/17 20:00 80 02/05/17 20:00 97.7 76 40 152/74 99 Room Air 2.0 21 02/05/17 17:06 157/70 02/05/17 16:00 78 02/05/17 16:00 97.7 76 18 157/70 99 Room Air 02/05/17 12:40 150/62 02/05/17 12:40 80 150/62 02/05/17 12:00 97.9 80 18 158/69 97 Room Air 02/05/17 12:00 80 Height (Feet): 5 Height (Inches): 6.00 Weight (Pounds): 250 Objective HEAD AND NECK: No JVP. No LAD. Extraocular movements intact. Pupils are reactive to light and accommodation. LUNGS: Decreased breathing sounds. CARDIAC: Regular rate and rhythm. S1, S2. No murmur. No rub. ABDOMEN: Obese, nontender, and nondistended. EXTREMITIES: She has 1+ edema. No clubbing. No cyanosis. NEUROLOGIC: Cranial nerves II though XII within normal limits. Upper and lower extremities are grossly intact. IKER GARCIA Feb 06, 2017 11:20
[2017-02-06 16:09] LABS: MEAN CORPUSCULAR HEMOGLOBIN 30.9 PG (27.0-31.0); MEAN CORPUSCULAR HGB CONC 31.6 G/DL (32.0-36.0); MEAN CORPUSCULAR VOLUME 98 FL (80-99); MEAN PLATELET VOLUME 10.8 FL (6.5-10.1); PLATELET COUNT 93 K/UL (150-450); RED BLOOD COUNT 2.93 M/UL (4.20-5.40); WHITE BLOOD COUNT 6.1 K/UL (4.8-10.8)
[2017-02-06 16:10] LABS: NEUTROPHILS % (AUTO) 69.3 % (45.0-75.0)
[2017-02-06 16:11] LABS: BASOPHILS % (AUTO) 1.3 % (0.0-2.0); EOSINOPHILS % (AUTO) 2.7 % (0.0-3.0); LYMPHOCYTES % (AUTO) 21.6 % (20.0-45.0); MONOCYTES % (AUTO) 5.1 % (1.0-10.0)
--- NOTE | 2017-02-06 18:29 | Pulmonology Progress Note ---
Assessment/Plan Problems: (1) Acute exacerbation of CHF (congestive heart failure) (2) Encephalopathy acute (3) Diabetes mellitus (4) ESRD (end stage renal disease) (5) Overuse of medication (6) Morbid obesity with BMI of 40.0-44.9, adult (7) HTN (hypertension) Assessment/Plan pb still fluctuating, Dr. Gates adjusting bp meds doing better got dialyzed yesterdays, getting dialysis today as well check echo, EF 65% sliding scale pain control Subjective ROS Limited/Unobtainable: No Constitutional: Reports: no symptoms HEENT: Repors: no symptoms Allergies: Coded Allergies: AZITHROMYCIN (Verified Allergy, Unknown, 01/30/17) POVIDONE-IODINE (Verified Allergy, Unknown, 01/30/17) Objective Last 24 Hour Vital Signs Date Time Temp Pulse Resp B/P (MAP) Pulse Ox O2 Delivery O2 Flow Rate FiO2 02/06/17 18:17 163/63 02/06/17 15:59 97.5 78 20 163/63 96 Nasal Cannula 2.0 02/06/17 12:51 164/93 02/06/17 12:44 164/93 02/06/17 12:38 184/75 02/06/17 11:45 97.9 75 20 184/75 97 Nasal Cannula 2.0 02/06/17 08:52 73 192/103 02/06/17 08:51 73 192/103 02/06/17 08:18 97.9 73 20 192/103 98 Nasal Cannula 2.0 02/06/17 07:53 Nasal Cannula 1.5 02/06/17 07:52 100 Nasal Cannula 1.5 02/06/17 05:19 171/76 02/06/17 04:04 176/92 02/06/17 04:00 83 02/06/17 04:00 97.5 74 40 171/92 96 Room Air 2.0 21 76 02/06/17 00:51 161/71 02/06/17 00:00 77 02/06/17 00:00 97.7 75 40 161/71 96 Room Air 2.0 21 02/05/17 21:55 76 152/74 02/05/17 20:38 96 Room Air 21 02/05/17 20:37 Room Air 21 02/05/17 20:00 80 02/05/17 20:00 97.7 76 40 152/74 99 Room Air 2.0 21 Intake and Output 02/06/17 02/07/17 19:00 07:00 Intake Total 240 ml Balance 240 ml Intake Oral 240 ml General Appearance: WD/WN HEENT: normocephalic, atraumatic Respiratory/Chest: chest wall non-tender, lungs clear Abdomen: normal bowel sounds, soft, non tender Extremities: no cyanosis Skin: no rash Neurologic/Psychiatric: still worker helper II-XII grossly normal Laboratory Tests 02/06/17 15:15: White Blood Count 6.1, Red Blood Count 2.93L, Hemoglobin 9.1L, Hematocrit 28.7L , Mean Corpuscular Volume 98, Mean Corpuscular Hemoglobin 30.9, Mean Corpuscular Hemoglobin Concent 31.6L, Red Cell Distribution Width 14.0, Platelet Count 93L, Mean Platelet Volume 10.8H, Neutrophils (%) (Auto) 69.3, Lymphocytes (%) (Auto) 21.6, Monocytes (%) (Auto) 5.1, Eosinophils (%) (Auto) 2.7, Basophils (%) (Auto) 1.3 Current Medications Medications (Trade) Dose Ordered Sig/Renée Route PRN Reason Start Time Stop Time Status Last Admin Dose Admin Acetaminophen (Tylenol) 650 mg Q4H PRN ORAL fever 02/05/17 12:00 03/02/17 11:59 Al Hydroxide/Mg Hydroxide (Mylanta II) 30 ml Q6H PRN ORAL dyspepsia 02/05/17 14:00 03/02/17 13:59 Aspirin (ASA) 81 mg DAILY ORAL 02/06/17 09:00 03/02/17 14:59 02/06/17 08:52 Atorvastatin Calcium (Lipitor) 40 mg BEDTIME ORAL 02/05/17 21:00 03/05/17 20:59 02/05/17 21:55 Carvedilol (Coreg) 3.125 mg EVERY 12 HOURS ORAL 02/05/17 12:00 03/07/17 11:59 02/06/17 08:51 Cinacalcet (Sensipar) 30 mg DAILY ORAL 02/07/17 09:00 03/09/17 08:59 Clonidine HCl (Catapres) 0.1 mg Q4H PRN ORAL SBP>160 02/05/17 12:00 03/02/17 11:59 02/06/17 12:51 Dextrose (Dextrose 50%) STAT PRN IV Hypoglycemia 02/05/17 12:00 03/07/17 11:59 Epoetin Elías (Procrit (for ESRD on dialysis)) 10,000 units MON-WED-FRI SUBQ 02/07/17 21:00 03/04/17 20:59 Furosemide (Lasix) 100 mg Q8H PRN IV dyspnea 02/05/17 14:00 03/02/17 13:59 Heparin Sodium (Porcine) (Heparin 5000 units/ml) 5,000 units EVERY 12 HOURS SUBQ 02/05/17 21:00 03/02/17 20:59 02/05/17 21:55 Hydralazine HCl (Apresoline) 25 mg Q6HR ORAL 02/05/17 12:00 03/07/17 11:59 02/06/17 18:17 Insulin Aspart (NovoLOG) BEFORE MEALS AND HS SUBQ 02/05/17 11:30 03/02/17 09:39 02/06/17 16:30 Iron Sucrose 100 mg/Sodium Chloride 60 ml @ 240 mls/hr BEDTIME IV 02/05/17 21:00 02/06/17 21:01 02/05/17 21:55 Magnesium Citrate (Citrate Of Magnesia) 300 ml DAILYPRN PRN ORAL Constipation Unrelieved by Gurvinder 02/05/17 18:45 03/07/17 18:44 Minoxidil (Loniten) 2.5 mg Q12HR ORAL 02/06/17 21:00 03/08/17 20:59 Morphine Sulfate (Morphine Sulfate) 4 mg Q4H PRN IVP PAIN 4-10 02/05/17 12:00 02/08/17 07:59 Nifedipine (Procardia XL) 60 mg DAILY ORAL 02/06/17 09:00 03/08/17 08:59 02/06/17 08:52 Ondansetron HCl (Zofran) 4 mg Q6H PRN IVP Nausea & Vomiting 02/05/17 12:00 03/02/17 11:59 Polyethylene Glycol (Miralax) 17 gm HSPRN PRN ORAL Constipation 02/05/17 21:00 03/07/17 20:59 Sevelamer Carbonate (Renvela) 800 mg THREE TIMES A DAY ORAL 02/05/17 13:00 03/02/17 14:59 02/06/17 18:17 Sitagliptin Phosphate (Januvia) 25 mg DAILY ORAL 02/06/17 09:00 03/02/17 14:59 02/06/17 08:51 Zolpidem Tartrate (Ambien) 5 mg HSPRN PRN ORAL Insomnia 02/05/17 21:00 02/12/17 20:59 MARINA PARRISH Feb 06, 2017 18:29
--- NOTE | 2017-02-06 20:22 | Cardiology Progress Note ---
Assessment/Plan Assessment/Plan 1. Accelerated hypertension, continue Nifedipine and carvedilol, start minoxidil 2.5mg bid, continue clonidine for breakthrough HTN, Echo reveals normal LV systolic function with LVEF at 60%. 2. History of diabetes mellitus. 3. Dyslipidemia, continue atorvastatin 40. 4. Slight elevation of troponin in this patient could be because of transient hypotension versus trop leak due to ESRD. Second trop was negative. 5. ESRD 6. Obesity. Subjective Subjective Sinus rhythm at 78.. No cardiac events. Objective Last 24 Hour Vital Signs Date Time Temp Pulse Resp B/P (MAP) Pulse Ox O2 Delivery O2 Flow Rate FiO2 02/06/17 18:17 163/63 02/06/17 16:00 78 02/06/17 15:59 97.5 78 20 163/63 96 Nasal Cannula 2.0 02/06/17 12:51 164/93 02/06/17 12:44 164/93 02/06/17 12:38 184/75 02/06/17 11:45 97.9 75 20 184/75 97 Nasal Cannula 2.0 02/06/17 08:52 73 192/103 02/06/17 08:51 73 192/103 02/06/17 08:18 97.9 73 20 192/103 98 Nasal Cannula 2.0 02/06/17 07:53 Nasal Cannula 1.5 02/06/17 07:52 100 Nasal Cannula 1.5 02/06/17 05:19 171/76 02/06/17 04:04 176/92 02/06/17 04:00 83 02/06/17 04:00 97.5 74 40 171/92 96 Room Air 2.0 21 76 02/06/17 00:51 161/71 02/06/17 00:00 77 02/06/17 00:00 97.7 75 40 161/71 96 Room Air 2.0 21 02/05/17 21:55 76 152/74 02/05/17 20:38 96 Room Air 21 02/05/17 20:37 Room Air 21 Intake and Output 02/06/17 02/07/17 19:00 07:00 Intake Total 360 ml Balance 360 ml Intake Oral 360 ml 2D Echo: LVEF 60-65%, CRISTELA, RVSP 43 mmHg, Grade I LVDD, Mild CO Laboratory Tests Test 02/06/17 15:15 White Blood Count 6.1 K/UL (4.8-10.8) Red Blood Count 2.93 M/UL (4.20-5.40) L Hemoglobin 9.1 G/DL (12.0-16.0) L Hematocrit 28.7 % (37.0-47.0) L Mean Corpuscular Volume 98 FL (80-99) Mean Corpuscular Hemoglobin 30.9 PG (27.0-31.0) Mean Corpuscular Hemoglobin Concent 31.6 G/DL (32.0-36.0) L Red Cell Distribution Width 14.0 % (11.6-14.8) Platelet Count 93 K/UL (150-450) L Mean Platelet Volume 10.8 FL (6.5-10.1) H Neutrophils (%) (Auto) 69.3 % (45.0-75.0) Lymphocytes (%) (Auto) 21.6 % (20.0-45.0) Monocytes (%) (Auto) 5.1 % (1.0-10.0) Eosinophils (%) (Auto) 2.7 % (0.0-3.0) Basophils (%) (Auto) 1.3 % (0.0-2.0) Objective HEENT: Atraumatic and normocephalic. Anicteric. Pupils are equal, round, and reactive to light and accommodation. Conjunctival pallor is present. NECK: JVP less than 5 cm. No carotid bruit. Carotid upstrokes 2+ bilaterally. CARDIOVASCULAR: Normal S1 and S2. Regular rate and rhythm. No murmurs, gallops or rubs. There is some irregularity of the pulse with 2/6 midsystolic murmur at the left sternal border. PMI is at fourth intercostal space in the midclavicular line. LUNGS: Clear to auscultation bilaterally. ABDOMEN: Distended due to obesity. Cannot assess hepatosplenomegaly due to obesity. Positive bowel sounds. Soft and nontender. EXTREMITIES: There is 1+ bilateral edema. JOSE ALBERTO WONG Feb 06, 2017 20:22
[2017-02-06] MEDS: Minoxidil 2.5mg tab ORAL SCH (21:47)
[2017-02-06 21:50] LABS: ANION GAP 11 mmol/L (5-15); CARBON DIOXIDE 26 MMOL/L (21-32); CHLORIDE 94 MMOL/L (98-107); CREATININE 13.2 MG/DL (0.55-1.30); GLOMERULAR FILTRATION RATE 2.9 mL/min (>60); POTASSIUM 5.8 MMOL/L (3.5-5.1); SODIUM 131 MMOL/L (136-145)
[2017-02-06] MEDS: Miralax 17gm pkt ORAL PRN (21:52)
[2017-02-06] MEDS: Iron Sucrose 100 MG in NS 55 ML IV SCH (21:57)
[2017-02-07] VITALS (8 sets, daily range): BP systolic 127–227; BP diastolic 51–96
[2017-02-07] MEDS: HydrALAZINE 25mg tab ORAL SCH ×4 (00:51→18:40)
[2017-02-07 06:23] LABS: BASOPHILS % (AUTO) 1.1 % (0.0-2.0); EOSINOPHILS % (AUTO) 2.9 % (0.0-3.0); MEAN CORPUSCULAR HEMOGLOBIN 30.4 PG (27.0-31.0); MEAN CORPUSCULAR HGB CONC 31.4 G/DL (32.0-36.0); MEAN CORPUSCULAR VOLUME 97 FL (80-99); MONOCYTES % (AUTO) 7.7 % (1.0-10.0); NEUTROPHILS % (AUTO) 71.4 % (45.0-75.0); PLATELET COUNT 135 K/UL (150-450); RED CELL DISTRIBUTION WIDTH 13.9 % (11.6-14.8); WHITE BLOOD COUNT 6.5 K/UL (4.8-10.8)
[2017-02-07] MEDS: NovoLOG Insulin Flexpen SUBQ SCH ×4 (06:36→20:52)
[2017-02-07 07:01] LABS: ANION GAP 14 mmol/L (5-15); CALCIUM 10.7 MG/DL (8.5-10.1); CARBON DIOXIDE 23 MMOL/L (21-32); CHLORIDE 94 MMOL/L (98-107); CREATININE 13.7 MG/DL (0.55-1.30); GLOMERULAR FILTRATION RATE 2.7 mL/min (>60); SODIUM 131 MMOL/L (136-145)
[2017-02-07 07:06] LABS: POTASSIUM 6.1 MMOL/L (3.5-5.1)
[2017-02-07] MEDS: Sensipar 30mg Tab ORAL SCH (09:00)
[2017-02-07] MEDS: Heparin 5000 units/ml inj SUBQ SCH ×2 (09:00→20:53)
[2017-02-07] MEDS: Aspirin Baby 81mg ORAL SCH (09:40)
[2017-02-07] MEDS: Minoxidil 2.5mg tab ORAL SCH ×2 (09:41→20:38)
[2017-02-07] MEDS: sitaGLIPtin 25mg tab ORAL SCH (09:41)
[2017-02-07] MEDS: Miralax 17gm pkt ORAL PRN (12:29)
--- NOTE | 2017-02-07 13:04 | Nephrology Progress Note ---
Assessment/Plan Assessment 1. End-stage coronary disease. 2. Anemia of chronic kidney disease. 3. Hyperkalemia 4. hypercalcemia Plan plan start on Sensipar adjust bp meds uf as tolerated in am repeat dialysis in am daily wt continue Epogen Subjective Constitutional: Reports: no symptoms HEENT: Reports: no symptoms Genitourinary: Reports: no symptoms Neurologic/Psychiatric: Reports: no symptoms Subjective on hemodialysis requested to be taken off the dialysis earlier due to back pain her in her bedside Objective Objective Last 24 Hour Vital Signs Date Time Temp Pulse Resp B/P (MAP) Pulse Ox O2 Delivery O2 Flow Rate FiO2 02/07/17 12:56 97.2 77 20 153/84 98 Room Air 02/07/17 12:22 127/63 02/07/17 09:41 127/63 02/07/17 09:40 84 127/63 02/07/17 09:40 84 127/63 02/07/17 09:00 Room Air 02/07/17 09:00 97.0 77 20 127/51 Room Air 02/07/17 08:39 97.0 84 20 127/63 98 Room Air 02/07/17 05:20 Room Air 02/07/17 05:10 98.0 88 22 227/96 95 Room Air 02/07/17 04:03 80 02/07/17 04:00 97.5 86 20 172/76 91 Room Air 02/07/17 00:53 201/79 02/07/17 00:51 201/79 02/07/17 00:11 93 02/07/17 00:11 Nasal Cannula 2.0 02/07/17 00:00 96.4 77 21 201/79 95 Room Air 02/06/17 23:01 99 Nasal Cannula 2.0 28 02/06/17 21:47 189/85 02/06/17 21:47 80 189/85 02/06/17 20:04 83 02/06/17 20:00 97.7 80 19 189/85 94 Room Air 02/06/17 18:17 163/63 02/06/17 16:00 78 02/06/17 15:59 97.5 78 20 163/63 96 Nasal Cannula 2.0 Intake and Output 02/07/17 02/08/17 19:00 07:00 Output Total 2400 ml Balance -2400 ml Hemodialysis UF 2400 ml Laboratory Tests 02/06/17 15:15: White Blood Count 6.1, Red Blood Count 2.93L, Hemoglobin 9.1L, Hematocrit 28.7L , Mean Corpuscular Volume 98, Mean Corpuscular Hemoglobin 30.9, Mean Corpuscular Hemoglobin Concent 31.6L, Red Cell Distribution Width 14.0, Platelet Count 93L, Mean Platelet Volume 10.8H, Neutrophils (%) (Auto) 69.3, Lymphocytes (%) (Auto) 21.6, Monocytes (%) (Auto) 5.1, Eosinophils (%) (Auto) 2.7, Basophils (%) (Auto) 1.3 02/06/17 21:00: Sodium Level 131L, Potassium Level 5.8H, Chloride Level 94L, Carbon Dioxide Level 26, Anion Gap 11, Blood Urea Nitrogen 88H, Creatinine 13.2H, Estimat Glomerular Filtration Rate 2.9, Glucose Level 297H, Calcium Level 11.0H 02/07/17 05:00: White Blood Count 6.5, Red Blood Count 3.10L, Hemoglobin 9.4L, Hematocrit 30.0L , Mean Corpuscular Volume 97, Mean Corpuscular Hemoglobin 30.4, Mean Corpuscular Hemoglobin Concent 31.4L, Red Cell Distribution Width 13.9, Platelet Count 135L, Mean Platelet Volume 9.0, Neutrophils (%) (Auto) 71.4, Lymphocytes (%) (Auto) 17.0L, Monocytes (%) (Auto) 7.7, Eosinophils (%) (Auto) 2.9, Basophils (%) (Auto) 1.1, Sodium Level 131L, Potassium Level 6.1*H, Chloride Level 94L, Carbon Dioxide Level 23, Anion Gap 14, Blood Urea Nitrogen 94H, Creatinine 13.7H, Estimat Glomerular Filtration Rate 2.7, Glucose Level 282H, Calcium Level 10.7H Height (Feet): 5 Height (Inches): 6.00 Weight (Pounds): 252 Objective HEAD AND NECK: No JVP. No LAD. Extraocular movements intact. Pupils are reactive to light and accommodation. LUNGS: Decreased breathing sounds. CARDIAC: Regular rate and rhythm. S1, S2. No murmur. No rub. ABDOMEN: Obese, nontender, and nondistended. EXTREMITIES: She has 1+ edema. No clubbing. No cyanosis. NEUROLOGIC: Cranial nerves II though XII within normal limits. Upper and lower extremities are grossly intact. IKER GARCIA Feb 07, 2017 13:04
--- NOTE | 2017-02-07 13:31 | General Progress Note ---
Assessment/Plan Problem List: (1) Acute exacerbation of CHF (congestive heart failure) ICD Codes: I50.9 - Heart failure, unspecified SNOMED: 68731976, 162286136 Qualifiers: Qualified Codes: I50.9 - Heart failure, unspecified (2) Morbid obesity with BMI of 40.0-44.9, adult ICD Codes: E66.01 - Morbid (severe) obesity due to excess calories; Z68.41 - Body mass index (BMI) 40.0-44.9, adult SNOMED: 845209179, 415732488 (3) Diabetes mellitus ICD Codes: E11.9 - Type 2 diabetes mellitus without complications SNOMED: 73352712 (4) ESRD (end stage renal disease) ICD Codes: N18.6 - End stage renal disease SNOMED: 50006716 (5) HTN (hypertension) ICD Codes: I10 - Essential (primary) hypertension SNOMED: 27670053 (6) Encephalopathy acute ICD Codes: G93.40 - Encephalopathy, unspecified; Z68.41 - Body mass index (BMI ) 40.0-44.9, adult SNOMED: 2936245, 740506938 Status: stable, progressing, tolerating diet Assessment/Plan ot pt diet dialysis o2 pulm tx cbc bmp am dc w hh Subjective Constitutional: Reports: weakness Allergies: Coded Allergies: AZITHROMYCIN (Verified Allergy, Unknown, 01/30/17) POVIDONE-IODINE (Verified Allergy, Unknown, 01/30/17) All Systems: reviewed and negative except above Subjective o2nc calm Objective Last 24 Hour Vital Signs Date Time Temp Pulse Resp B/P (MAP) Pulse Ox O2 Delivery O2 Flow Rate FiO2 02/07/17 12:56 97.2 77 20 153/84 98 Room Air 02/07/17 12:22 127/63 02/07/17 09:41 127/63 02/07/17 09:40 84 127/63 02/07/17 09:40 84 127/63 02/07/17 09:00 Room Air 02/07/17 09:00 97.0 77 20 127/51 Room Air 02/07/17 08:39 97.0 84 20 127/63 98 Room Air 02/07/17 05:20 Room Air 02/07/17 05:10 98.0 88 22 227/96 95 Room Air 02/07/17 04:03 80 02/07/17 04:00 97.5 86 20 172/76 91 Room Air 02/07/17 00:53 201/79 02/07/17 00:51 201/79 02/07/17 00:11 93 02/07/17 00:11 Nasal Cannula 2.0 02/07/17 00:00 96.4 77 21 201/79 95 Room Air 02/06/17 23:01 99 Nasal Cannula 2.0 28 02/06/17 21:47 189/85 02/06/17 21:47 80 189/85 02/06/17 20:04 83 02/06/17 20:00 97.7 80 19 189/85 94 Room Air 02/06/17 18:17 163/63 02/06/17 16:00 78 02/06/17 15:59 97.5 78 20 163/63 96 Nasal Cannula 2.0 Intake and Output 02/07/17 02/08/17 19:00 07:00 Output Total 2400 ml Balance -2400 ml Hemodialysis UF 2400 ml Laboratory Tests 02/06/17 15:15: White Blood Count 6.1, Red Blood Count 2.93L, Hemoglobin 9.1L, Hematocrit 28.7L , Mean Corpuscular Volume 98, Mean Corpuscular Hemoglobin 30.9, Mean Corpuscular Hemoglobin Concent 31.6L, Red Cell Distribution Width 14.0, Platelet Count 93L, Mean Platelet Volume 10.8H, Neutrophils (%) (Auto) 69.3, Lymphocytes (%) (Auto) 21.6, Monocytes (%) (Auto) 5.1, Eosinophils (%) (Auto) 2.7, Basophils (%) (Auto) 1.3 02/06/17 21:00: Sodium Level 131L, Potassium Level 5.8H, Chloride Level 94L, Carbon Dioxide Level 26, Anion Gap 11, Blood Urea Nitrogen 88H, Creatinine 13.2H, Estimat Glomerular Filtration Rate 2.9, Glucose Level 297H, Calcium Level 11.0H 02/07/17 05:00: White Blood Count 6.5, Red Blood Count 3.10L, Hemoglobin 9.4L, Hematocrit 30.0L , Mean Corpuscular Volume 97, Mean Corpuscular Hemoglobin 30.4, Mean Corpuscular Hemoglobin Concent 31.4L, Red Cell Distribution Width 13.9, Platelet Count 135L, Mean Platelet Volume 9.0, Neutrophils (%) (Auto) 71.4, Lymphocytes (%) (Auto) 17.0L, Monocytes (%) (Auto) 7.7, Eosinophils (%) (Auto) 2.9, Basophils (%) (Auto) 1.1, Sodium Level 131L, Potassium Level 6.1*H, Chloride Level 94L, Carbon Dioxide Level 23, Anion Gap 14, Blood Urea Nitrogen 94H, Creatinine 13.7H, Estimat Glomerular Filtration Rate 2.7, Glucose Level 282H, Calcium Level 10.7H Height (Feet): 5 Height (Inches): 6.00 Weight (Pounds): 252 General Appearance: lethargic EENT: normal ENT inspection Neck: normal alignment Cardiovascular: normal peripheral pulses, normal rate, regular rhythm Respiratory/Chest: chest wall non-tender, lungs clear, normal breath sounds Abdomen: normal bowel sounds, non tender, soft Extremities: normal inspection Edema: no edema noted Arm (L), no edema noted Arm (R), no edema noted Leg (L), no edema noted Leg (R), no edema noted Pedal (L), no edema noted Pedal (R), no edema noted Generalized Neurologic: responsive, motor weakness Skin: normal pigmentation, warm/dry YOLIS REGAN Feb 07, 2017 13:31
--- NOTE | 2017-02-07 18:04 | Pulmonology Progress Note ---
Assessment/Plan Problems: (1) Acute exacerbation of CHF (congestive heart failure) (2) Encephalopathy acute (3) Diabetes mellitus (4) ESRD (end stage renal disease) (5) Overuse of medication (6) Morbid obesity with BMI of 40.0-44.9, adult (7) HTN (hypertension) Assessment/Plan bp better doing better got dialyzed yesterdays, getting dialysis today as well check echo, EF 65% sliding scale pain control dc planning Subjective ROS Limited/Unobtainable: No Constitutional: Reports: no symptoms HEENT: Repors: no symptoms Respiratory: Reports: no symptoms Cardiovascular: Reports: no symptoms Allergies: Coded Allergies: AZITHROMYCIN (Verified Allergy, Unknown, 01/30/17) POVIDONE-IODINE (Verified Allergy, Unknown, 01/30/17) Objective Last 24 Hour Vital Signs Date Time Temp Pulse Resp B/P (MAP) Pulse Ox O2 Delivery O2 Flow Rate FiO2 02/07/17 16:20 97.3 74 20 141/65 97 Room Air 02/07/17 12:56 97.2 77 20 153/84 98 Room Air 02/07/17 12:22 127/63 02/07/17 09:41 127/63 02/07/17 09:40 84 127/63 02/07/17 09:40 84 127/63 02/07/17 09:00 Room Air 02/07/17 09:00 97.0 77 20 127/51 Room Air 02/07/17 08:39 97.0 84 20 127/63 98 Room Air 02/07/17 05:20 Room Air 02/07/17 05:10 98.0 88 22 227/96 95 Room Air 02/07/17 04:03 80 02/07/17 04:00 97.5 86 20 172/76 91 Room Air 02/07/17 00:53 201/79 02/07/17 00:51 201/79 02/07/17 00:11 93 02/07/17 00:11 Nasal Cannula 2.0 02/07/17 00:00 96.4 77 21 201/79 95 Room Air 02/06/17 23:01 99 Nasal Cannula 2.0 28 02/06/17 21:47 189/85 02/06/17 21:47 80 189/85 02/06/17 20:04 83 02/06/17 20:00 97.7 80 19 189/85 94 Room Air 02/06/17 18:17 163/63 Intake and Output 02/07/17 02/08/17 19:00 07:00 Intake Total 360 ml Output Total 2400 ml Balance -2040 ml Intake Oral 360 ml Hemodialysis UF 2400 ml General Appearance: WD/WN HEENT: normocephalic, atraumatic Respiratory/Chest: chest wall non-tender, lungs clear Breasts: no masses Cardiovascular: normal peripheral pulses Abdomen: normal bowel sounds, soft, non tender Genitourinary: normal external genitalia Skin: no rash Neurologic/Psychiatric: step down specialist II-XII grossly normal Laboratory Tests 02/06/17 21:00: Sodium Level 131L, Potassium Level 5.8H, Chloride Level 94L, Carbon Dioxide Level 26, Anion Gap 11, Blood Urea Nitrogen 88H, Creatinine 13.2H, Estimat Glomerular Filtration Rate 2.9, Glucose Level 297H, Calcium Level 11.0H 02/07/17 05:00: Sodium Level 131L, Potassium Level 6.1*H, Chloride Level 94L, Carbon Dioxide Level 23, Anion Gap 14, Blood Urea Nitrogen 94H, Creatinine 13.7H, Estimat Glomerular Filtration Rate 2.7, Glucose Level 282H, Calcium Level 10.7H, White Blood Count 6.5, Red Blood Count 3.10L, Hemoglobin 9.4L, Hematocrit 30.0L, Mean Corpuscular Volume 97, Mean Corpuscular Hemoglobin 30.4, Mean Corpuscular Hemoglobin Concent 31.4L, Red Cell Distribution Width 13.9, Platelet Count 135L , Mean Platelet Volume 9.0, Neutrophils (%) (Auto) 71.4, Lymphocytes (%) (Auto) 17.0L, Monocytes (%) (Auto) 7.7, Eosinophils (%) (Auto) 2.9, Basophils (%) (Auto ) 1.1 Current Medications Medications (Trade) Dose Ordered Sig/Renée Route PRN Reason Start Time Stop Time Status Last Admin Dose Admin Acetaminophen (Tylenol) 650 mg Q4H PRN ORAL fever 02/05/17 12:00 03/02/17 11:59 Al Hydroxide/Mg Hydroxide (Mylanta II) 30 ml Q6H PRN ORAL dyspepsia 02/05/17 14:00 03/02/17 13:59 Aspirin (ASA) 81 mg DAILY ORAL 02/06/17 09:00 03/02/17 14:59 02/07/17 09:40 Atorvastatin Calcium (Lipitor) 40 mg BEDTIME ORAL 02/05/17 21:00 03/05/17 20:59 02/06/17 21:47 Carvedilol (Coreg) 3.125 mg EVERY 12 HOURS ORAL 02/05/17 12:00 03/07/17 11:59 02/07/17 09:40 Cinacalcet (Sensipar) 30 mg DAILY ORAL 02/07/17 09:00 03/09/17 08:59 Clonidine HCl (Catapres) 0.1 mg Q4H PRN ORAL SBP>160 02/05/17 12:00 03/02/17 11:59 02/07/17 00:53 Dextrose (Dextrose 50%) STAT PRN IV Hypoglycemia 02/05/17 12:00 03/07/17 11:59 Epoetin Elías (Procrit (for ESRD on dialysis)) 10,000 units TUE-TUE-TUE SUBQ 02/07/17 21:00 03/04/17 20:59 Furosemide (Lasix) 100 mg Q8H PRN IV dyspnea 02/05/17 14:00 03/02/17 13:59 Heparin Sodium (Porcine) (Heparin 5000 units/ml) 5,000 units EVERY 12 HOURS SUBQ 02/05/17 21:00 03/02/17 20:59 02/05/17 21:55 Hydralazine HCl (Apresoline) 25 mg Q6HR ORAL 02/05/17 12:00 03/07/17 11:59 02/07/17 12:22 Insulin Aspart (NovoLOG) BEFORE MEALS AND HS SUBQ 02/05/17 11:30 03/02/17 09:39 02/07/17 11:30 Magnesium Citrate (Citrate Of Magnesia) 300 ml DAILYPRN PRN ORAL Constipation Unrelieved by Gurvinder 02/05/17 18:45 03/07/17 18:44 Minoxidil (Loniten) 2.5 mg Q12HR ORAL 02/06/17 21:00 03/08/17 20:59 02/07/17 09:41 Morphine Sulfate (Morphine Sulfate) 4 mg Q4H PRN IVP PAIN 4-10 02/05/17 12:00 02/08/17 07:59 Nifedipine (Procardia XL) 60 mg DAILY ORAL 02/06/17 09:00 03/08/17 08:59 02/07/17 09:40 Ondansetron HCl (Zofran) 4 mg Q6H PRN IVP Nausea & Vomiting 02/05/17 12:00 03/02/17 11:59 02/07/17 05:42 Polyethylene Glycol (Miralax) 17 gm HSPRN PRN ORAL Constipation 02/05/17 21:00 03/07/17 20:59 02/07/17 12:29 Sevelamer Carbonate (Renvela) 800 mg THREE TIMES A DAY ORAL 02/05/17 13:00 03/02/17 14:59 02/07/17 12:22 Sitagliptin Phosphate (Januvia) 25 mg DAILY ORAL 02/06/17 09:00 03/02/17 14:59 02/07/17 09:41 Zolpidem Tartrate (Ambien) 5 mg HSPRN PRN ORAL Insomnia 02/05/17 21:00 02/12/17 20:59 MARINA PARRISH Feb 07, 2017 18:04
--- NOTE | 2017-02-07 20:26 | Cardiology Progress Note ---
Assessment/Plan Assessment/Plan 1. Accelerated hypertension, resolved, continue nifedipine, carvedilol and minoxidil, continue clonidine for breakthrough HTN, Echo reveals normal LV systolic function with LVEF at 60%. 2. History of diabetes mellitus. 3. Dyslipidemia, continue atorvastatin 40. 4. Slight elevation of troponin in this patient could be because of transient hypotension versus trop leak due to ESRD. Second trop was negative. 5. ESRD 6. Obesity. Subjective Subjective Sinus rhythm at 74.. No cardiac events. Objective Last 24 Hour Vital Signs Date Time Temp Pulse Resp B/P (MAP) Pulse Ox O2 Delivery O2 Flow Rate FiO2 02/07/17 18:40 141/65 02/07/17 16:20 97.3 74 20 141/65 97 Room Air 02/07/17 16:00 92 02/07/17 12:56 97.2 77 20 153/84 98 Room Air 02/07/17 12:22 127/63 02/07/17 12:00 92 02/07/17 09:41 127/63 02/07/17 09:40 84 127/63 02/07/17 09:40 84 127/63 02/07/17 09:00 Room Air 02/07/17 09:00 97.0 77 20 127/51 Room Air 02/07/17 08:39 97.0 84 20 127/63 98 Room Air 02/07/17 08:00 84 02/07/17 05:20 Room Air 02/07/17 05:10 98.0 88 22 227/96 95 Room Air 02/07/17 04:03 80 02/07/17 04:00 97.5 86 20 172/76 91 Room Air 02/07/17 00:53 201/79 02/07/17 00:51 201/79 02/07/17 00:11 93 02/07/17 00:11 Nasal Cannula 2.0 02/07/17 00:00 96.4 77 21 201/79 95 Room Air 02/06/17 23:01 99 Nasal Cannula 2.0 28 02/06/17 21:47 189/85 02/06/17 21:47 80 189/85 Intake and Output 02/07/17 02/08/17 19:00 07:00 Intake Total 360 ml Output Total 2400 ml Balance -2040 ml Intake Oral 360 ml Hemodialysis UF 2400 ml 2D Echo: LVEF 60-65%, CRISTELA, RVSP 43 mmHg, Grade I LVDD, Mild MO Laboratory Tests Test 02/06/17 21:00 02/07/17 05:00 Sodium Level 131 MMOL/L (136-145) L 131 MMOL/L (136-145) L Potassium Level 5.8 MMOL/L (3.5-5.1) H 6.1 MMOL/L (3.5-5.1) *H Chloride Level 94 MMOL/L (98-107) L 94 MMOL/L (98-107) L Carbon Dioxide Level 26 MMOL/L (21-32) 23 MMOL/L (21-32) Anion Gap 11 mmol/L (5-15) 14 mmol/L (5-15) Blood Urea Nitrogen 88 mg/dL (7-18) H 94 mg/dL (7-18) H Creatinine 13.2 MG/DL (0.55-1.30) H 13.7 MG/DL (0.55-1.30) H Estimat Glomerular Filtration Rate 2.9 mL/min (>60) 2.7 mL/min (>60) Glucose Level 297 MG/DL (74-106) H 282 MG/DL (74-106) H Calcium Level 11.0 MG/DL (8.5-10.1) H 10.7 MG/DL (8.5-10.1) H White Blood Count 6.5 K/UL (4.8-10.8) Red Blood Count 3.10 M/UL (4.20-5.40) L Hemoglobin 9.4 G/DL (12.0-16.0) L Hematocrit 30.0 % (37.0-47.0) L Mean Corpuscular Volume 97 FL (80-99) Mean Corpuscular Hemoglobin 30.4 PG (27.0-31.0) Mean Corpuscular Hemoglobin Concent 31.4 G/DL (32.0-36.0) L Red Cell Distribution Width 13.9 % (11.6-14.8) Platelet Count 135 K/UL (150-450) L Mean Platelet Volume 9.0 FL (6.5-10.1) Neutrophils (%) (Auto) 71.4 % (45.0-75.0) Lymphocytes (%) (Auto) 17.0 % (20.0-45.0) L Monocytes (%) (Auto) 7.7 % (1.0-10.0) Eosinophils (%) (Auto) 2.9 % (0.0-3.0) Basophils (%) (Auto) 1.1 % (0.0-2.0) Objective HEENT: Atraumatic and normocephalic. Anicteric. Pupils are equal, round, and reactive to light and accommodation. Conjunctival pallor is present. NECK: JVP less than 5 cm. No carotid bruit. Carotid upstrokes 2+ bilaterally. CARDIOVASCULAR: Normal S1 and S2. Regular rate and rhythm. No murmurs, gallops or rubs. There is some irregularity of the pulse with 2/6 midsystolic murmur at the left sternal border. PMI is at fourth intercostal space in the midclavicular line. LUNGS: Clear to auscultation bilaterally. ABDOMEN: Distended due to obesity. Cannot assess hepatosplenomegaly due to obesity. Positive bowel sounds. Soft and nontender. EXTREMITIES: There is 1+ bilateral edema. JOSE ALBERTO WONG Feb 07, 2017 20:26
[2017-02-07] MEDS ORDERED: Epogen (for ESRD on dialysis) SUBQ SCH (21:00)
[2017-02-08] VITALS: BP 154/78
[2017-02-08] MEDS: HydrALAZINE 25mg tab ORAL SCH ×4 (00:14→17:18)
[2017-02-08 04:00] VITALS: BP 158/67
[2017-02-08] MEDS: NovoLOG Insulin Flexpen SUBQ SCH ×7 (07:05→21:00)
[2017-02-08 08:00] VITALS: BP 170/80
[2017-02-08] MEDS: Insulin NPH SUBQ SCH ×2 (08:14→16:52)
--- NOTE | 2017-02-08 08:22 | Cardiology Report ---
APPROVED REPORT EKG Measurement Heart [id number] Sinus rhythm with 1st degree AV block with frequent premature ventricular complexes Possible Left atrial enlargement Rightward axis Prolonged QT Abnormal ECG
[2017-02-08] MEDS: Aspirin Baby 81mg ORAL SCH (09:06)
[2017-02-08] MEDS: Sensipar 30mg Tab ORAL SCH (09:06)
[2017-02-08] MEDS: Minoxidil 2.5mg tab ORAL SCH (09:09)
[2017-02-08] MEDS: sitaGLIPtin 25mg tab ORAL SCH (09:09)
[2017-02-08] MEDS: Heparin 5000 units/ml inj SUBQ SCH (09:11)
[2017-02-08 09:25] LABS: BASOPHILS % (AUTO) 0.9 % (0.0-2.0); EOSINOPHILS % (AUTO) 4.2 % (0.0-3.0); LYMPHOCYTES % (AUTO) 10.4 % (20.0-45.0); MEAN CORPUSCULAR HEMOGLOBIN 31.2 PG (27.0-31.0); MEAN CORPUSCULAR HGB CONC 31.6 G/DL (32.0-36.0); MEAN CORPUSCULAR VOLUME 99 FL (80-99); MEAN PLATELET VOLUME 9.3 FL (6.5-10.1); MONOCYTES % (AUTO) 6.6 % (1.0-10.0); NEUTROPHILS % (AUTO) 77.9 % (45.0-75.0); PLATELET COUNT 151 K/UL (150-450); RED BLOOD COUNT 3.29 M/UL (4.20-5.40); RED CELL DISTRIBUTION WIDTH 14.3 % (11.6-14.8); WHITE BLOOD COUNT 8.5 K/UL (4.8-10.8)
[2017-02-08 09:37] LABS: ANION GAP 11 mmol/L (5-15); CALCIUM 10.5 MG/DL (8.5-10.1); CARBON DIOXIDE 27 MMOL/L (21-32); CHLORIDE 95 MMOL/L (98-107); CREATININE 9.4 MG/DL (0.55-1.30); GLOMERULAR FILTRATION RATE 4.2 mL/min (>60); SODIUM 133 MMOL/L (136-145)
[2017-02-08 12:00] VITALS: BP 162/59
--- NOTE | 2017-02-08 13:13 | Nephrology Progress Note ---
Assessment/Plan Assessment 1. End-stage coronary disease. 2. Anemia of chronic kidney disease. 3. Hyperkalemia 4. hypercalcemia Plan plan start on Sensipar adjust bp meds uf as tolerated in am repeat dialysis in am daily wt continue Epogen Subjective Constitutional: Reports: no symptoms HEENT: Reports: no symptoms Genitourinary: Reports: no symptoms Neurologic/Psychiatric: Reports: no symptoms Subjective feeling better today appetite has gotten better her in her bedside Objective Objective Last 24 Hour Vital Signs Date Time Temp Pulse Resp B/P (MAP) Pulse Ox O2 Delivery O2 Flow Rate FiO2 02/08/17 12:00 97.7 83 18 162/59 100 Room Air 02/08/17 12:00 162/59 02/08/17 12:00 78 02/08/17 09:09 170/80 02/08/17 09:08 89 170/80 02/08/17 09:07 89 170/80 02/08/17 08:00 84 02/08/17 08:00 98.2 89 18 170/80 100 Room Air 02/08/17 07:00 158/67 02/08/17 04:00 84 02/08/17 04:00 98.3 83 20 158/67 92 Room Air 02/08/17 00:14 154/78 02/08/17 00:00 97.7 80 19 154/78 94 Room Air 02/08/17 00:00 84 02/07/17 20:38 141/65 02/07/17 20:37 74 141/65 02/07/17 20:00 78 02/07/17 20:00 98.1 76 19 172/67 92 Room Air 02/07/17 18:40 141/65 02/07/17 16:20 97.3 74 20 141/65 97 Room Air 02/07/17 16:00 92 Intake and Output 02/08/17 02/09/17 19:00 07:00 # Bowel Movements 1 Laboratory Tests 02/08/17 09:10: White Blood Count 8.5, Red Blood Count 3.29L, Hemoglobin 10.2L, Hematocrit 32.4L , Mean Corpuscular Volume 99, Mean Corpuscular Hemoglobin 31.2H, Mean Corpuscular Hemoglobin Concent 31.6L, Red Cell Distribution Width 14.3, Platelet Count 151, Mean Platelet Volume 9.3, Neutrophils (%) (Auto) 77.9H, Lymphocytes (%) (Auto) 10.4L, Monocytes (%) (Auto) 6.6, Eosinophils (%) (Auto) 4.2H, Basophils (%) (Auto) 0.9, Sodium Level 133L, Potassium Level 6.0*H, Chloride Level 95L, Carbon Dioxide Level 27, Anion Gap 11, Blood Urea Nitrogen 53H, Creatinine 9.4H, Estimat Glomerular Filtration Rate 4.2, Glucose Level 438# H, Calcium Level 10.5H Height (Feet): 5 Height (Inches): 6.00 Weight (Pounds): 251 Objective HEAD AND NECK: No JVP. No LAD. Extraocular movements intact. Pupils are reactive to light and accommodation. LUNGS: Decreased breathing sounds. CARDIAC: Regular rate and rhythm. S1, S2. No murmur. No rub. ABDOMEN: Obese, nontender, and nondistended. EXTREMITIES: She has 1+ edema. No clubbing. No cyanosis. NEUROLOGIC: Cranial nerves II though XII within normal limits. Upper and lower extremities are grossly intact. IKER GARCIA Feb 08, 2017 13:13
--- NOTE | 2017-02-08 14:35 | General Progress Note ---
Assessment/Plan Problem List: (1) Acute exacerbation of CHF (congestive heart failure) ICD Codes: I50.9 - Heart failure, unspecified SNOMED: 51042840, 156104819 Qualifiers: Qualified Codes: I50.9 - Heart failure, unspecified (2) Morbid obesity with BMI of 40.0-44.9, adult ICD Codes: E66.01 - Morbid (severe) obesity due to excess calories; Z68.41 - Body mass index (BMI) 40.0-44.9, adult SNOMED: 576217751, 290988626 (3) Diabetes mellitus ICD Codes: E11.9 - Type 2 diabetes mellitus without complications SNOMED: 18730447 (4) ESRD (end stage renal disease) ICD Codes: N18.6 - End stage renal disease SNOMED: 74856057 (5) HTN (hypertension) ICD Codes: I10 - Essential (primary) hypertension SNOMED: 57924480 (6) Encephalopathy acute ICD Codes: G93.40 - Encephalopathy, unspecified; Z68.41 - Body mass index (BMI ) 40.0-44.9, adult SNOMED: 3210364, 758549634 Status: stable, progressing, tolerating diet Assessment/Plan ot pt diet dialysis o2 pulm tx cardio cleared dc to snf Subjective Constitutional: Reports: weakness Respiratory: Reports: shortness of breath Allergies: Coded Allergies: AZITHROMYCIN (Verified Allergy, Unknown, 01/30/17) POVIDONE-IODINE (Verified Allergy, Unknown, 01/30/17) All Systems: reviewed and negative except above Subjective o2nc calm Objective Last 24 Hour Vital Signs Date Time Temp Pulse Resp B/P (MAP) Pulse Ox O2 Delivery O2 Flow Rate FiO2 02/08/17 12:00 97.7 83 18 162/59 100 Room Air 02/08/17 12:00 162/59 02/08/17 12:00 78 02/08/17 09:09 170/80 02/08/17 09:08 89 170/80 02/08/17 09:07 89 170/80 02/08/17 08:00 84 02/08/17 08:00 98.2 89 18 170/80 100 Room Air 02/08/17 07:00 158/67 02/08/17 04:00 84 02/08/17 04:00 98.3 83 20 158/67 92 Room Air 02/08/17 00:14 154/78 02/08/17 00:00 97.7 80 19 154/78 94 Room Air 02/08/17 00:00 84 02/07/17 20:38 141/65 02/07/17 20:37 74 141/65 02/07/17 20:00 78 02/07/17 20:00 98.1 76 19 172/67 92 Room Air 02/07/17 18:40 141/65 02/07/17 16:20 97.3 74 20 141/65 97 Room Air 02/07/17 16:00 92 Intake and Output 02/08/17 02/09/17 19:00 07:00 # Bowel Movements 1 Laboratory Tests 02/08/17 09:10: White Blood Count 8.5, Red Blood Count 3.29L, Hemoglobin 10.2L, Hematocrit 32.4L , Mean Corpuscular Volume 99, Mean Corpuscular Hemoglobin 31.2H, Mean Corpuscular Hemoglobin Concent 31.6L, Red Cell Distribution Width 14.3, Platelet Count 151, Mean Platelet Volume 9.3, Neutrophils (%) (Auto) 77.9H, Lymphocytes (%) (Auto) 10.4L, Monocytes (%) (Auto) 6.6, Eosinophils (%) (Auto) 4.2H, Basophils (%) (Auto) 0.9, Sodium Level 133L, Potassium Level 6.0*H, Chloride Level 95L, Carbon Dioxide Level 27, Anion Gap 11, Blood Urea Nitrogen 53H, Creatinine 9.4H, Estimat Glomerular Filtration Rate 4.2, Glucose Level 438# H, Calcium Level 10.5H Height (Feet): 5 Height (Inches): 6.00 Weight (Pounds): 251 General Appearance: lethargic EENT: normal ENT inspection Neck: normal alignment Cardiovascular: normal peripheral pulses, normal rate, regular rhythm Respiratory/Chest: chest wall non-tender, lungs clear, decreased breath sounds Abdomen: normal bowel sounds, non tender, soft Extremities: normal inspection Edema: no edema noted Arm (L), no edema noted Arm (R), no edema noted Leg (L), no edema noted Leg (R), no edema noted Pedal (L), no edema noted Pedal (R), no edema noted Generalized Neurologic: responsive, motor weakness Skin: normal pigmentation, warm/dry [place] Feb 08, 2017 14:35
[2017-02-08] MEDS ORDERED: ACETAMINOPHEN325 M1 ORAL (14:51)
[2017-02-08] MEDS ORDERED: MYLANTA30 M1 ORAL (14:52)
[2017-02-08] MEDS ORDERED: ASPIRIN81 MG ORAL (14:53)
[2017-02-08] MEDS ORDERED: LIPITOR40 MG ORAL (14:53)
[2017-02-08] MEDS ORDERED: COREG3.125 MG ORAL (14:54)
[2017-02-08] MEDS ORDERED: SENSIPAR30 MG ORAL (14:54)
[2017-02-08] MEDS ORDERED: CATAPRES0.1 MG ORAL (14:56)
[2017-02-08] MEDS ORDERED: EPOGEN10000 UNIT SUBQ (14:58)
[2017-02-08] MEDS ORDERED: HEPARIN SO5000 UNIT2 SUBQ (15:00)
[2017-02-08] MEDS ORDERED: HYDRALAZINE HCL25 M1 ORAL (15:01)
[2017-02-08] MEDS ORDERED: INSULIN CHARG5 UNITS SUBQ (15:02)
[2017-02-08] MEDS ORDERED: NOVOLOG100 UNITS1 SUBQ (15:04)
[2017-02-08] MEDS ORDERED: NOVOLOG100 UNITS1 (15:04)
[2017-02-08] MEDS ORDERED: MINOXIDIL2.5 MG PO (15:06)
[2017-02-08] MEDS ORDERED: CITRATE OF MAG296 ML PO (15:06)
[2017-02-08] MEDS ORDERED: PROCARDIA XL30 MG ORAL (15:07)
[2017-02-08] MEDS ORDERED: JANUVIA25 MG ORAL (15:08)
[2017-02-08] MEDS ORDERED: AMBIEN5 MG ORAL (15:08)
[2017-02-08] MEDS ORDERED: MIRALAX17 G2 ORAL (15:08)
[2017-02-08] MEDS ORDERED: RENVELA800 MG ORAL (15:08)
[2017-02-08 16:00] VITALS: BP 161/57
--- NOTE | 2017-02-08 16:15 | Consultation ---
DATE OF CONSULTATION: 02/08/2017 ENDOCRINOLOGY CONSULTATION CONSULTING PHYSICIAN: Freddie Jama M.D. REFERRING PHYSICIAN: Woodrow Lord D.O. REASON FOR CONSULTATION: Diabetes management. HISTORY OF PRESENT ILLNESS: The patient is a pleasant 61-year-old female with past medical history of morbid obesity, hypertension, longstanding history of diabetes, and end-stage renal disease, on dialysis, who presented to the hospital with shortness of breath. Blood glucose was out of control; therefore, Endocrinology was consulted in order to assist in the management of diabetes. She is getting ready to discharge. At home, she is on NPH and regular insulin. She does not follow up with an collision worker and her diabetes is managed by her primary care physician, Dr. Mckeon. PAST MEDICAL HISTORY: 1. End-stage renal disease. 2. Anemia. 3. Hypertension. 4. Diabetes. 5. Morbid obesity. 6. AV fistula creation. ALLERGIES: Azithromycin, iodine, and soap. SOCIAL HISTORY: The patient lives at home with her . No history of smoking, alcohol or drug use. REVIEW OF SYSTEMS: As per HPI. PHYSICAL EXAMINATION: VITAL SIGNS: Blood pressure is 180/100, temperature of 98, respiratory rate of 18, pulse of 82. HEENT: Pupils are equal and reactive to light. Sclerae anicteric. Increased facial hair growth noted. NECK: No JVD. No thyromegaly. LUNGS: Clear. ABDOMEN: Positive bowel sounds. Soft. EXTREMITIES: No clubbing, cyanosis, or edema. LABORATORY DATA: WBC 6.5, hemoglobin 9, hematocrit 30, and platelet count of 135,000. Sodium is 131, potassium 6.1, chloride 94, bicarbonate 23, BUN 94, and creatinine 0.7. Calcium is 10.7. Hemoglobin A1c of 7.4. DIAGNOSES: 1. End-stage renal disease, on hemodialysis. 2. Diabetes, out of control. 3. Hirsutism. 4. Hypertension. PLAN: 1. I will start NPH 20 units b.i.d. 2. Start NovoLog 8 units before each meal. 3. Continue NovoLog sliding scale. We will keep the regimen with NPH on regular during her hospital stay so she can continue with that at home. It seems like her insurance does not cover analog insulins. The hirsutism is obvious and needs to be worked up and followed as an outpatient. I recommend for her to follow up with an Endocrinology service after discharge. Thank you, Dr. Lord, for the courtesy of this consultation. Freddie Jama M.D. DR: BAILEY JOB#: [id number] CC: HIGINIO
--- NOTE | 2017-02-08 16:31 | Infectious Diseases Prog Note ---
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 (2) Morbid obesity with BMI of 40.0-44.9, adult (3) Diabetes mellitus (4) ESRD (end stage renal disease) (5) HTN (hypertension) Assessment/Plan Infectious Diseases Consultation Note Yelena Cano M.D., Ph.D. (Office: [phone], Pager: [phone]) Thank you for the consultation! Please do not hesitate to call with questions. Cell/Txt msg is [phone]. Referring Physician: Dr. Woodrow Lord Reason for consultation: VRE. Chief Complaint: AMS. ID: Sky Lopes is a 61 year-old female. HPI: (History obtained from: Patient and chart.) Patient was sent urgently to the ED for evaluation of altered mental status. Complaint onset was acute and occurred on day of admission. Location of the complaint is the gastrointestinal system. Timing of the complaint is constant. The context for the complaint is patient was noted to be more lethargic per . Complaint quality is stable and unchanged. The complaint severity is moderate. No associated symptom. Modifying factors are none. Since admission, patient had positive VRE screen and ID was consulted. On visit , patient's mental status appears to be back to baseline. Past Medical History: DM, HTN, ESRD. Family History: Reviewed and otherwise not informative. Social History: Tobacco: None currently. EtOH: None currently. Illicit drugs: None currently. Residence: home. Medications: Reviewed. Antibiotics: None. Review of systems: Constitutional: Negative. Eye: Negative. ENT: Negative. Cardiovascular: Negative. Respiratory: Negative. Gastrointestinal: Negative. Genitourinary: Negative. Musculoskeletal: Negative. Integumentary: Negative. Neurological: Negative. Psychiatric: Negative. Endocrine: Negative. Hematological: Negative. Allergy & Immunology: Azithromycin. Iodine. Physical Exam - Vitals: Reveiwed and as noted below. General: Alert. Well-nourished and well-developed. Eyes: [place] conjunctivae. PERRL. ENMT: Oropharynx clear. Nose/ears are atraumatic. Neck: Neck is symmetrical. No thyroid tenderness. Respiratory: Decreased breath sounds throughout. Cardiovascular: Regular rate and rhythm. No peripheral edema. Gastrointestinal: Soft, non-tender with normoactive bowel sounds. No umbilical hernia. Lymphatic: No cervical or supraclavicular lymphadenopathy. Musculoskeletal: Normal muscle bulk. No joint effusions. No cyanosis or clubbing. Skin: No rash or ulcers. Normal palpation. Neurologic: Sensory intact to light touch. Moving all 4's. Psychiatric: Alert but oriented only to self. Chest: Symmetric. Genitourinary: No Nava. Laboratory: Reviewed and noted. Micro: Extended review of culture results shows: Pending. Imaging: Images were reviewed personally. CXR: Mild pulmonary edema. Subjective Allergies: Coded Allergies: AZITHROMYCIN (Verified Allergy, Unknown, 01/30/17) POVIDONE-IODINE (Verified Allergy, Unknown, 01/30/17) Objective Vital Signs Last 24 Hour Vital Signs Date Time Temp Pulse Resp B/P (MAP) Pulse Ox O2 Delivery O2 Flow Rate FiO2 02/08/17 16:00 97.5 79 20 161/57 94 Room Air 02/08/17 12:00 97.7 83 18 162/59 100 Room Air 02/08/17 12:00 162/59 02/08/17 12:00 78 02/08/17 09:09 170/80 02/08/17 09:08 89 170/80 02/08/17 09:07 89 170/80 02/08/17 08:00 84 02/08/17 08:00 98.2 89 18 170/80 100 Room Air 02/08/17 07:00 158/67 02/08/17 04:00 84 02/08/17 04:00 98.3 83 20 158/67 92 Room Air 02/08/17 00:14 154/78 02/08/17 00:00 97.7 80 19 154/78 94 Room Air 02/08/17 00:00 84 02/07/17 20:38 141/65 02/07/17 20:37 74 141/65 02/07/17 20:00 78 02/07/17 20:00 98.1 76 19 172/67 92 Room Air 02/07/17 18:40 141/65 Height (Feet): 5 Height (Inches): 6.00 Weight (Pounds): 251 Laboratory Tests Test 02/08/17 09:10 White Blood Count 8.5 K/UL (4.8-10.8) Red Blood Count 3.29 M/UL (4.20-5.40) L Hemoglobin 10.2 G/DL (12.0-16.0) L Hematocrit 32.4 % (37.0-47.0) L Mean Corpuscular Volume 99 FL (80-99) Mean Corpuscular Hemoglobin 31.2 PG (27.0-31.0) H Mean Corpuscular Hemoglobin Concent 31.6 G/DL (32.0-36.0) L Red Cell Distribution Width 14.3 % (11.6-14.8) Platelet Count 151 K/UL (150-450) Mean Platelet Volume 9.3 FL (6.5-10.1) Neutrophils (%) (Auto) 77.9 % (45.0-75.0) H Lymphocytes (%) (Auto) 10.4 % (20.0-45.0) L Monocytes (%) (Auto) 6.6 % (1.0-10.0) Eosinophils (%) (Auto) 4.2 % (0.0-3.0) H Basophils (%) (Auto) 0.9 % (0.0-2.0) Sodium Level 133 MMOL/L (136-145) L Potassium Level 6.0 MMOL/L (3.5-5.1) *H Chloride Level 95 MMOL/L (98-107) L Carbon Dioxide Level 27 MMOL/L (21-32) Anion Gap 11 mmol/L (5-15) Blood Urea Nitrogen 53 mg/dL (7-18) H Creatinine 9.4 MG/DL (0.55-1.30) H Estimat Glomerular Filtration Rate 4.2 mL/min (>60) Glucose Level 438 MG/DL (74-106) #H Calcium Level 10.5 MG/DL (8.5-10.1) H Current Medications Medications (Trade) Dose Ordered Sig/Renée Route PRN Reason Start Time Stop Time Status Last Admin Dose Admin Acetaminophen (Tylenol) 650 mg Q4H PRN ORAL fever 02/05/17 12:00 03/02/17 11:59 02/07/17 20:47 Al Hydroxide/Mg Hydroxide (Mylanta II) 30 ml Q6H PRN ORAL dyspepsia 02/05/17 14:00 03/02/17 13:59 Aspirin (ASA) 81 mg DAILY ORAL 02/06/17 09:00 03/02/17 14:59 02/08/17 09:06 Atorvastatin Calcium (Lipitor) 40 mg BEDTIME ORAL 02/05/17 21:00 03/05/17 20:59 02/07/17 20:37 Carvedilol (Coreg) 3.125 mg EVERY 12 HOURS ORAL 02/05/17 12:00 03/07/17 11:59 02/08/17 09:07 Cinacalcet (Sensipar) 30 mg DAILY ORAL 02/07/17 09:00 03/09/17 08:59 02/08/17 09:06 Clonidine HCl (Catapres) 0.1 mg Q4H PRN ORAL SBP>160 02/05/17 12:00 03/02/17 11:59 02/07/17 00:53 Dextrose (Dextrose 50%) STAT PRN IV Hypoglycemia 02/05/17 12:00 03/07/17 11:59 Dextrose (Dextrose 50%) STAT PRN IV Hypoglycemia 02/08/17 07:00 03/10/17 06:59 Epoetin Elías (Procrit (for ESRD on dialysis)) 10,000 units TUE-TUE-TUE SUBQ 02/07/17 21:00 03/04/17 20:59 02/07/17 22:01 Furosemide (Lasix) 100 mg Q8H PRN IV dyspnea 02/05/17 14:00 03/02/17 13:59 Heparin Sodium (Porcine) (Heparin 5000 units/ml) 5,000 units EVERY 12 HOURS SUBQ 02/05/17 21:00 03/02/17 20:59 02/08/17 09:11 Hydralazine HCl (Apresoline) 25 mg Q6HR ORAL 02/05/17 12:00 03/07/17 11:59 02/08/17 12:00 Insulin Aspart (NovoLOG) BEFORE MEALS AND HS SUBQ 02/05/17 11:30 03/02/17 09:39 02/08/17 12:02 Insulin Aspart (NovoLOG) 8 units NOVOTIAC SUBQ 02/08/17 07:30 03/10/17 07:29 02/08/17 12:01 Insulin Human NPH (Humulin N) 20 units PRE BFAST AND DINNER SUBQ 02/08/17 07:30 03/10/17 07:29 02/08/17 08:14 Magnesium Citrate (Citrate Of Magnesia) 300 ml DAILYPRN PRN ORAL Constipation Unrelieved by Gurvinder 02/05/17 18:45 03/07/17 18:44 Minoxidil (Loniten) 2.5 mg Q12HR ORAL 02/06/17 21:00 03/08/17 20:59 02/08/17 09:09 Nifedipine (Procardia XL) 60 mg DAILY ORAL 02/06/17 09:00 03/08/17 08:59 02/08/17 09:08 Ondansetron HCl (Zofran) 4 mg Q6H PRN IVP Nausea & Vomiting 02/05/17 12:00 03/02/17 11:59 02/07/17 05:42 Polyethylene Glycol (Miralax) 17 gm HSPRN PRN ORAL Constipation 02/05/17 21:00 03/07/17 20:59 02/07/17 12:29 Sevelamer Carbonate (Renvela) 800 mg THREE TIMES A DAY ORAL 02/05/17 13:00 03/02/17 14:59 02/08/17 14:45 Sitagliptin Phosphate (Januvia) 25 mg DAILY ORAL 02/06/17 09:00 03/02/17 14:59 02/08/17 09:09 Zolpidem Tartrate (Ambien) 5 mg HSPRN PRN ORAL Insomnia 02/05/17 21:00 02/12/17 20:59 YELENA CANO Feb 08, 2017 16:31
[2017-02-08 19:24] VITALS: BP 191/81
--- NOTE | 2017-02-08 22:00 | Pulmonology Progress Note ---
Assessment/Plan Problems: (1) Acute exacerbation of CHF (congestive heart failure) (2) Encephalopathy acute (3) Diabetes mellitus (4) ESRD (end stage renal disease) (5) Overuse of medication (6) Morbid obesity with BMI of 40.0-44.9, adult (7) HTN (hypertension) Assessment/Plan bp better medications examined laboratory and diagnostics examined doing better got dialyzed yesterdays, getting dialysis today as well check echo, EF 65% sliding scale pain control dc planning Subjective ROS Limited/Unobtainable: No Constitutional: Reports: fatigue, anorexia Respiratory: Reports: productive cough, shortness of breath, dyspnea at rest Neurologic: Reports: weakness Endocrine: Reports: abnormal blood sugar Allergies: Coded Allergies: AZITHROMYCIN (Verified Allergy, Unknown, 01/30/17) POVIDONE-IODINE (Verified Allergy, Unknown, 01/30/17) Objective Last 24 Hour Vital Signs Date Time Temp Pulse Resp B/P (MAP) Pulse Ox O2 Delivery O2 Flow Rate FiO2 02/08/17 19:24 98.2 88 20 191/81 95 Room Air 02/08/17 17:18 161/57 02/08/17 16:00 81 02/08/17 16:00 97.5 79 20 161/57 94 Room Air 02/08/17 12:00 97.7 83 18 162/59 100 Room Air 02/08/17 12:00 162/59 02/08/17 12:00 78 02/08/17 09:09 170/80 02/08/17 09:08 89 170/80 02/08/17 09:07 89 170/80 02/08/17 08:00 84 02/08/17 08:00 98.2 89 18 170/80 100 Room Air 02/08/17 07:00 158/67 02/08/17 04:00 84 02/08/17 04:00 98.3 83 20 158/67 92 Room Air 02/08/17 00:14 154/78 02/08/17 00:00 97.7 80 19 154/78 94 Room Air 02/08/17 00:00 84 Intake and Output 02/08/17 02/09/17 19:00 07:00 Intake Total 500 ml Balance 500 ml Intake Oral 500 ml # Bowel Movements 1 General Appearance: no acute distress HEENT: normocephalic, atraumatic, PERRL Respiratory/Chest: chest wall non-tender, decreased breath sounds, accessory muscle use, expiratory wheezing, inspiratory wheezing Breasts: no masses Cardiovascular: normal peripheral pulses, normal rate, regular rhythm, no JVD Abdomen: normal bowel sounds, soft, non tender, distended Genitourinary: normal external genitalia Skin: no rash 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, no motor/sensory deficits Laboratory Tests 02/08/17 09:10: White Blood Count 8.5, Red Blood Count 3.29L, Hemoglobin 10.2L, Hematocrit 32.4L , Mean Corpuscular Volume 99, Mean Corpuscular Hemoglobin 31.2H, Mean Corpuscular Hemoglobin Concent 31.6L, Red Cell Distribution Width 14.3, Platelet Count 151, Mean Platelet Volume 9.3, Neutrophils (%) (Auto) 77.9H, Lymphocytes (%) (Auto) 10.4L, Monocytes (%) (Auto) 6.6, Eosinophils (%) (Auto) 4.2H, Basophils (%) (Auto) 0.9, Sodium Level 133L, Potassium Level 6.0*H, Chloride Level 95L, Carbon Dioxide Level 27, Anion Gap 11, Blood Urea Nitrogen 53H, Creatinine 9.4H, Estimat Glomerular Filtration Rate 4.2, Glucose Level 438# H, Calcium Level 10.5H Current Medications Medications (Trade) Dose Ordered Sig/Renée Route PRN Reason Start Time Stop Time Status Last Admin Dose Admin Acetaminophen (Tylenol) 650 mg Q4H PRN ORAL fever 02/05/17 12:00 03/02/17 11:59 02/07/17 20:47 Al Hydroxide/Mg Hydroxide (Mylanta II) 30 ml Q6H PRN ORAL dyspepsia 02/05/17 14:00 03/02/17 13:59 Aspirin (ASA) 81 mg DAILY ORAL 02/06/17 09:00 03/02/17 14:59 02/08/17 09:06 Atorvastatin Calcium (Lipitor) 40 mg BEDTIME ORAL 02/05/17 21:00 03/05/17 20:59 02/07/17 20:37 Carvedilol (Coreg) 3.125 mg EVERY 12 HOURS ORAL 02/05/17 12:00 03/07/17 11:59 02/08/17 09:07 Cinacalcet (Sensipar) 30 mg DAILY ORAL 02/07/17 09:00 03/09/17 08:59 02/08/17 09:06 Clonidine HCl (Catapres) 0.1 mg Q4H PRN ORAL SBP>160 02/05/17 12:00 03/02/17 11:59 02/07/17 00:53 Dextrose (Dextrose 50%) STAT PRN IV Hypoglycemia 02/05/17 12:00 03/07/17 11:59 Dextrose (Dextrose 50%) STAT PRN IV Hypoglycemia 02/08/17 07:00 03/10/17 06:59 Epoetin Elías (Procrit (for ESRD on dialysis)) 10,000 units TUE-TUE-TUE SUBQ 02/07/17 21:00 03/04/17 20:59 02/07/17 22:01 Furosemide (Lasix) 100 mg Q8H PRN IV dyspnea 02/05/17 14:00 03/02/17 13:59 Heparin Sodium (Porcine) (Heparin 5000 units/ml) 5,000 units EVERY 12 HOURS SUBQ 02/05/17 21:00 03/02/17 20:59 02/08/17 09:11 Hydralazine HCl (Apresoline) 25 mg Q6HR ORAL 02/05/17 12:00 03/07/17 11:59 02/08/17 17:18 Insulin Aspart (NovoLOG) BEFORE MEALS AND HS SUBQ 02/05/17 11:30 03/02/17 09:39 02/08/17 16:51 Insulin Aspart (NovoLOG) 8 units NOVOTIAC SUBQ 02/08/17 07:30 03/10/17 07:29 02/08/17 16:52 Insulin Human NPH (Humulin N) 20 units PRE BFAST AND DINNER SUBQ 02/08/17 07:30 03/10/17 07:29 02/08/17 16:52 Magnesium Citrate (Citrate Of Magnesia) 300 ml DAILYPRN PRN ORAL Constipation Unrelieved by Gurvinder 02/05/17 18:45 03/07/17 18:44 Minoxidil (Loniten) 2.5 mg Q12HR ORAL 02/06/17 21:00 03/08/17 20:59 02/08/17 09:09 Nifedipine (Procardia XL) 60 mg DAILY ORAL 02/06/17 09:00 03/08/17 08:59 02/08/17 09:08 Ondansetron HCl (Zofran) 4 mg Q6H PRN IVP Nausea & Vomiting 02/05/17 12:00 03/02/17 11:59 02/07/17 05:42 Polyethylene Glycol (Miralax) 17 gm HSPRN PRN ORAL Constipation 02/05/17 21:00 03/07/17 20:59 02/07/17 12:29 Sevelamer Carbonate (Renvela) 800 mg THREE TIMES A DAY ORAL 02/05/17 13:00 03/02/17 14:59 02/08/17 17:18 Sitagliptin Phosphate (Januvia) 25 mg DAILY ORAL 02/06/17 09:00 03/02/17 14:59 02/08/17 09:09 Zolpidem Tartrate (Ambien) 5 mg HSPRN PRN ORAL Insomnia 02/05/17 21:00 02/12/17 20:59 MARINA PARRISH Feb 08, 2017 22:00
--- NOTE | 2017-02-08 22:15 | Cardiology Progress Note ---
Assessment/Plan Assessment/Plan 1. Accelerated hypertension, resolved, increase nifedipine, hydralazine and minoxidil, continue clonidine for breakthrough HTN, Echo reveals normal LV systolic function with LVEF at 60%. 2. History of diabetes mellitus. 3. Dyslipidemia, continue atorvastatin 40. 4. Slight elevation of troponin in this patient could be because of transient hypotension versus trop leak due to ESRD. Second trop was negative. 5. ESRD 6. Obesity. Subjective Subjective Sinus rhythm at 89. No cardiac events. Objective Last 24 Hour Vital Signs Date Time Temp Pulse Resp B/P (MAP) Pulse Ox O2 Delivery O2 Flow Rate FiO2 02/08/17 19:24 98.2 88 20 191/81 95 Room Air 02/08/17 17:18 161/57 02/08/17 16:00 81 02/08/17 16:00 97.5 79 20 161/57 94 Room Air 02/08/17 12:00 97.7 83 18 162/59 100 Room Air 02/08/17 12:00 162/59 02/08/17 12:00 78 02/08/17 09:09 170/80 02/08/17 09:08 89 170/80 02/08/17 09:07 89 170/80 02/08/17 08:00 84 02/08/17 08:00 98.2 89 18 170/80 100 Room Air 02/08/17 07:00 158/67 02/08/17 04:00 84 02/08/17 04:00 98.3 83 20 158/67 92 Room Air 02/08/17 00:14 154/78 02/08/17 00:00 97.7 80 19 154/78 94 Room Air 02/08/17 00:00 84 Intake and Output 02/08/17 02/09/17 19:00 07:00 Intake Total 500 ml Balance 500 ml Intake Oral 500 ml # Bowel Movements 1 2D Echo: LVEF 60-65%, CRISTELA, RVSP 43 mmHg, Grade I LVDD, Mild PA Laboratory Tests Test 02/08/17 09:10 White Blood Count 8.5 K/UL (4.8-10.8) Red Blood Count 3.29 M/UL (4.20-5.40) L Hemoglobin 10.2 G/DL (12.0-16.0) L Hematocrit 32.4 % (37.0-47.0) L Mean Corpuscular Volume 99 FL (80-99) Mean Corpuscular Hemoglobin 31.2 PG (27.0-31.0) H Mean Corpuscular Hemoglobin Concent 31.6 G/DL (32.0-36.0) L Red Cell Distribution Width 14.3 % (11.6-14.8) Platelet Count 151 K/UL (150-450) Mean Platelet Volume 9.3 FL (6.5-10.1) Neutrophils (%) (Auto) 77.9 % (45.0-75.0) H Lymphocytes (%) (Auto) 10.4 % (20.0-45.0) L Monocytes (%) (Auto) 6.6 % (1.0-10.0) Eosinophils (%) (Auto) 4.2 % (0.0-3.0) H Basophils (%) (Auto) 0.9 % (0.0-2.0) Sodium Level 133 MMOL/L (136-145) L Potassium Level 6.0 MMOL/L (3.5-5.1) *H Chloride Level 95 MMOL/L (98-107) L Carbon Dioxide Level 27 MMOL/L (21-32) Anion Gap 11 mmol/L (5-15) Blood Urea Nitrogen 53 mg/dL (7-18) H Creatinine 9.4 MG/DL (0.55-1.30) H Estimat Glomerular Filtration Rate 4.2 mL/min (>60) Glucose Level 438 MG/DL (74-106) #H Calcium Level 10.5 MG/DL (8.5-10.1) H Objective HEENT: Atraumatic and normocephalic. Anicteric. Pupils are equal, round, and reactive to light and accommodation. Conjunctival pallor is present. NECK: JVP less than 5 cm. No carotid bruit. Carotid upstrokes 2+ bilaterally. CARDIOVASCULAR: Normal S1 and S2. Regular rate and rhythm. No murmurs, gallops or rubs. There is some irregularity of the pulse with 2/6 midsystolic murmur at the left sternal border. PMI is at fourth intercostal space in the midclavicular line. LUNGS: Clear to auscultation bilaterally. ABDOMEN: Distended due to obesity. Cannot assess hepatosplenomegaly due to obesity. Positive bowel sounds. Soft and nontender. EXTREMITIES: There is 1+ bilateral edema. JOSE ALBERTO WONG Feb 08, 2017 22:15
[2017-02-09] MEDS ORDERED: HydrALAZINE 25mg tab ORAL SCH
[2017-02-09] MEDS ORDERED: Minoxidil 2.5mg tab ORAL SCH (09:00)
--- NOTE | 2017-02-11 13:31 | Discharge Summary ---
Discharge Summary Hospital Course Date of Admission Jan 31, 2017 at 02:44 Date of Discharge Feb 08, 2017 at 21:30 Admitting Diagnosis Congestive heart failure, altered mental status HPI Sky Lopes is a 61 year old female who was admitted on Jan 31, 2017 at 02: 44 for Congestive Heart Failure, Altered Mental Status Hospital Course [id number] Discharge Discharge Disposition Patient was discharged to SNF/Subacute Facility(03) Discharge Diagnoses: Carri Patel NP Feb 11, 2017 13:31
--- NOTE | 2017-02-12 03:15 | Discharge Summary 2 SIG ---
DATE OF ADMISSION: 01/31/2017 DATE OF DISCHARGE: 02/08/2017 CONSULTANTS: 1. Mily Muñoz M.D. 2. Guevara Gates M.D. 3. Kathi Resendiz M.D. 4. Freddie Jama M.D. BRIEF HOSPITAL COURSE: The patient is a 61-year-old female, who lives at home, presented to ED complaining of shortness of breath. On evaluation at ED, mild shortness of breath. The patient has history of renal failure and on hemodialysis four times a week. She presented with altered level of consciousness that has gotten progressively worse. On evaluation at ED, the patient was hypotensive, blood pressure 80/32. Chest x-ray showed CHF, which is right-sided. EKG was in normal sinus rhythm. The patient was admitted to telemetry for acute encephalopathy and CHF. Troponin was mildly elevated. Dr. Resendiz was consulted and the patient was given inpatient hemodialysis. A 12-lead EKG showed normal sinus rhythm with heart rate of [address] to T-wave abnormalities. BNP was 10,579. Hypotension was most likely secondary to hypovolemia. Echocardiogram done showed EF of 60% to 65% with mild pulmonary hypertension. Carotid ultrasound showed minimal plaque in both carotid internal and external artery. Subsequent repeat chest x-ray showed improved CHF. She had low hemoglobin levels. Anemia work up showed low iron level. Blood pressure was monitored. Subsequent repeat troponin was negative and there was no evidence of arrhythmia. She was continued on aspirin and atorvastatin. Blood sugars were monitored and the patient was started on NPH with NovoLog sliding scale. A1c was 7.4. She had hypercalcemia with elevated PTH and was started on Sensipar. She was given Venofer and Epogen for anemia. She was eventually discharged to [facility] to continue hemodialysis with [facility] on [address] [place]. FINAL DIAGNOSES: 1. Acute exacerbation of diastolic congestive heart failure. 2. Acute toxic metabolic encephalopathy, resolved. 3. End-stage renal disease, on hemodialysis. 4. Diabetes mellitus. 5. Morbid obesity. 6. Transient hypotension due to overuse of medications. 7. Mild pulmonary hypertension. 8. Anemia of chronic renal disease. 9. Anemia of iron deficiency. 10. Hyperlipidemia. 11. Hypercalcemia. 12. Accelerated hypertension. 13. Morbid obesity. 14. 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 15. Diabetes mellitus, out of control. 16. Slight elevation of troponin due to transient hypotension and troponin leak due to end-stage renal disease. Second troponin was negative. DISPOSITION: The patient was discharged to SNF. DISCHARGE MEDICATIONS: Refer to medication list. Woodrow Lord D.O. I have been assigned to dictate discharge summary on this account and I was not involved in the patient's management. Carri Patel N.P. DR: Bhargavi JOB#: [id number] CC: HIGINIO
== END 2017-02-08 21:30 | DRG 291 ==
LOC: EDBD 23:47 → EMR 01-31 01:00 → 2E 01-31 02:44 → EDBEDREQ 01-31 02:48 → 2E 01-31 22:30 → 4W 02-02 22:41 → 2E 02-05 10:12
PROC: 5A1D70Z Performance of Urinary Filtration, Intermittent, Less than 6 Hours Per Day (ICD-10-PCS; principal; 2017-02-01)
DX: I13.2 Hypertensive heart and chronic kidney disease with heart failure and with stage 5 chronic kidney disease, or end stage renal disease (principal); N18.6 End stage renal disease; G92 Toxic encephalopathy; E11.22 Type 2 diabetes mellitus with diabetic chronic kidney disease; I27.20 Pulmonary hypertension, unspecified; I95.9 Hypotension, unspecified; E11.65 Type 2 diabetes mellitus with hyperglycemia; I50.33 Acute on chronic diastolic (congestive) heart failure; Z68.41 Body mass index [BMI] 40.0-44.9, adult; N25.0 Renal osteodystrophy; Z99.2 Dependence on renal dialysis; E66.01 Morbid (severe) obesity due to excess calories; D63.1 Anemia in chronic kidney disease; Z79.4 Long term (current) use of insulin; J45.909 Unspecified asthma, uncomplicated; Z88.1 Allergy status to other antibiotic agents; Z88.8 Allergy status to other drugs, medicaments and biological substances; Z91.14 Patient's other noncompliance with medication regimen; E87.6 Hypokalemia; R55 Syncope and collapse; E78.5 Hyperlipidemia, unspecified; E83.52 Hypercalcemia
CPT/HCPCS: 36415; 36600; 51702; 70450; 71010; 80048; 80053; 80061; 82550; 82553; 82607; 82746; 82803; 82962; 83036; 83540; 83550; 83615; 83735; 83880; 83970; 84100; 84443; 84484; 85007; 85025; 85044; 85060; 85610; 85651; 85730; 87081; 93005; 93306; 93880; 94664; 94760; J1815; J2405